=== PATIENT | female | born 1965 | race African-American/Black ===

== ENCOUNTER 2016-08-28 09:51 | Day surgery (SDC) | payer OTHER ==
[~2016-08-28 09:51] MED LIST: Buffered Lidocaine 0.9% SYRIN* 5 ML/SYR SYRINGE INTRADERM ONE
[2016-08-28] MEDS ORDERED: Clindamycin 900 MG IVPREMIX(* 900 MG/50 ML SDV IV ONE (10:14)
[2016-08-28] MEDS ORDERED: Buffered Lidocaine 0.9% SYRIN* 5 ML/SYR SYRINGE ONE (10:14)
[2016-08-28] MEDS ORDERED: fentaNYL* 50 MCG/ML 2 ML VIAL (100 MCG VIAL) ONE (11:16)
[2016-08-28] MEDS ORDERED: Midazolam* 1 MG/ML 2 ML VIAL (2 MG) ONE ×2 (11:16→12:04)
[2016-08-28] MEDS ORDERED: Lidocaine 1% INJ* 10 MG/ML 30 ML SDV ONE (11:41)
[2016-08-28] MEDS ORDERED: Bupivacaine 0.25% SDV* 30 ML ONE (11:41)
[2016-08-28] MEDS ORDERED: Dexamethasone IV* 4 MG/ML 5 ML VIAL (20 MG) ONE (11:41)
[2016-08-28] MEDS ORDERED: Propofol* 10 MG/ML 20 ML BTL IV PUSH ONE ×2 (11:42→12:26)
[2016-08-28 13:47] VITALS: BP 146/94
--- NOTE | 2016-08-29 06:40 | RAD ---
INDICATION: Correction of hallux valgus right foot. COMPARISON: Comparison is made with a prior chest study of the right foot from August 08, 2015. TECHNIQUE: 5.1 seconds of intermittent fluoroscopic guidance were provided and 2 spot films of the right foot were obtained in the operating room. FINDINGS: The films demonstrate a surgical defect at the level of the interphalangeal joint of the great toe. There are 2 K wires which project over the proximal and distal phalanges. IMPRESSION: INTRAOPERATIVE CONTROL FILMS. CPT II Codes: 6045F
--- NOTE | 2016-08-29 18:38 | OP ---
DATE OF OPERATION: 08/28/16 [facility] DATE OF : 65 SURGEON: Jesus Coulter DPM ANESTHESIOLOGIST: Randal Valentin MD ANESTHESIA: MAC local. PRE-OP DIAGNOSIS: Right hallux valgus. POST-OP DIAGNOSIS: Right hallux valgus. OPERATIVE PROCEDURE: Right hallux valgus repair. ESTIMATED BLOOD LOSS: Less than 10 cc. IV FLUIDS: LR 1000 cc. DRAINS: None. SPECIMEN: Distal portion of the proximal phalanx of the right hallux. DESCRIPTION OF PROCEDURE: The patient was taken to the operating room where she was placed in the supine position. Time-out was called and OR team agreed. The right big toe was then blocked with 8 cc of 1% lidocaine plain in a ring block fashion. The right foot was exsanguinated with an Esmarch bandage and the cuff was then inflated to 250 mmHg. Attention was then paid to the right big toe and made a lateral incision over the right big toe. It was followed by sharp and blunt dissection from the epidermis, dermis, subcutaneous, and down to fascia and to the capsule. I incised the capsule and dissected off the periosteum from the proximal phalanx of the hallux. Noteworthy was an old fracture that appeared to be healing at the posterolateral aspect of the proximal phalanx. It was at this time I decided that a compression screw was appropriate for the procedure. I then proceeded to remove a wedge of bone, removing the articular cartilage of the proximal phalanx as well as the articular cartilage from the distal phalanx of the hallux. This procedure was undertaken due to the fractured part of the bone. It was best to just fuse the middle, the proximal, and the distal phalanx at this time, removing a wedge of bone to take the hallux out of valgus. After removing the wedge of bone, I then approximated the 2 pieces of bone and then under C-arm guidance, I retrograded K-wire, two pieces of 0.062 inch K-wire to fixate. The K- wires were placed percutaneously. Once it was determined that I was able to get apposition of the bone fragments, I then proceeded to irrigate the wound, close the wound in layered anatomical fashion. I injected the site with 5 cc of 0.25 % Marcaine plain and 8 mg of dexamethasone phosphate, put into a posterior splint. The patient's cuff was then deflated. The patient tolerated the procedure well and discharged in stable condition. [id number]/[facility] #: [id number] MTDOlman
== END 2016-08-28 14:44 | disposition home or self-care (01) ==
LOC: OR 09:51
PROVIDERS: ATTEND Podiatrist
DX: M20.11 Hallux valgus (acquired), right foot (principal); F17.210 Nicotine dependence, cigarettes, uncomplicated; J44.9 Chronic obstructive pulmonary disease, unspecified; E03.9 Hypothyroidism, unspecified; I74.8 Embolism and thrombosis of other arteries; Z79.01 Long term (current) use of anticoagulants
CPT/HCPCS: 76000; C1776; J2001; J2250; J2704; J3010

== ENCOUNTER → 2016-12-29 08:21 | Emergency (ER) | payer OTHER ==
[2016-12-29 09:12] LABS: Hematocrit 43 % (35-47); Hemoglobin 14.6 g/dl (12.0-16.0); Mean Corpuscular HGB Conc 34 g/dl (31-36); Mean Corpuscular Hemoglobin 32 pg (27-31); Mean Corpuscular Volume 94 fL (80-97); Mean Platelet Volume 7 um3 (7.4-10.4); Red Cell Distribution Width 14 % (10.5-15); White Blood Count 7.9 10^3/ul (3.5-10.8)
[2016-12-29 09:29] LABS: Albumin 4.3 g/dL (3.2-5.2); BUN/Creatinine Ratio 17.6 (8-20); EGFR African American 117.3 (>60); EGFR Non-African American 91.2 (>60); Globulin 3.2 g/dL (2-4); Potassium 3.7 mmol/L (3.5-5.0); Total Bilirubin 0.5 mg/dL (0.2-1.0); Total Protein 7.5 g/dL (6.4-8.9)
--- NOTE | 2016-12-29 09:46 | RAD ---
INDICATION: Hematoma/swelling on the chin. No reported injury. COMPARISON: No relevant prior exams available on the [facility] PACS for comparison. TECHNIQUE: Multidetector CT base of the skull through mandible without contrast. Multiplanar reformation. REPORT: Subcutaneous edema at the chin. Midline to RIGHT para midline 1.0 cm diameter soft tissue density nodule within the subcutaneous tissue plane approximating the muscular fascia at the deep margin which may represent a hematoma, complex cyst, or solid lesion. Negative for subcutaneous emphysema or soft tissue plane foreign bodies. Artifact from dental amalgam. Short segment medially depressed RIGHT lamina papyracea at the medial margin of the RIGHT orbit without discrete conspicuous fracture likely represents sequela of remote injury. Negative for associated medial herniation of the medial rectus muscle. The orbital and maxillary sinus margins, zygomatic arches, lamina papyracea, base of the maxilla, pterygoid plates, and nasal bones are without evidence for acute fracture. The senile morphology mandible is intact. Normal temporal mandibular joint alignment. No lymphadenopathy evident within the [id number]. IMPRESSION: 1. Subcutaneous edema at the chin. Midline to RIGHT para midline 1.0 cm diameter soft tissue density nodule within the subcutaneous tissue plane approximating the muscular fascia at the deep margin which may represent a hematoma, complex cyst, or solid lesion. Negative for subcutaneous emphysema or soft tissue plane foreign bodies. 2. No acute fracture evident.
[2016-12-29 10:32] VITALS: BP 119/81
--- NOTE | 2016-12-30 08:35 | ED ---
Asad Albert Angela, scribed for Vj Alexandra MD on 12/29/16 at 0850 . Skin Complaint - HPI Summary HPI Summary: This pt is a 51 y/o female presenting to [facility] c/o a large ecchymosis on her chin today. Pt states she woke up with this bruise on her chin this morning. Pt denies trauma or fall. She notes she has history of blood clots and is concerned this may be one. Pt is on anticoagulants. PMHx includes left subclavian artery thrombus. - History of Current Complaint Chief Complaint: EDFacialInjury Time Seen by Provider: 12/29/16 08:40 Stated Complaint: NECK/CHIN SWELLING Hx Obtained From: Patient Onset/Duration: Started Hours Ago, Still Present Timing: Constant, Lasting Hours Pain Intensity: 8 Pain Scale Used: 0-10 Numeric Skin Location: Discrete, Other: - chin - Additional Pertinent History Primary Care Physician: BAKARI - Allergy/Home Medications Allergies/Adverse Reactions: Allergies Allergy/AdvReac Type Severity Reaction Status Date / Time Penicillins [PCN] Allergy Intermediate Swelling Verified 02/26/16 14:04 PMH/Surg Hx/FS Hx/Imm Hx Endocrine/Hematology History: Reports: Hx Thyroid Disease - hypothyroidism, no meds currently, Hx Anemia - hx of, no meds Denies: Hx Diabetes Cardiovascular History: Reports: Other Cardiovascular Problems/Disorders - Left subclavian artery thrombus Denies: Hx Congestive Heart Failure, Hx Hypertension, Hx Pacemaker/ICD Respiratory History: Reports: Hx Asthma - prn inhaler, Hx Chronic Bronchitis, Hx Chronic Obstructive Pulmonary Disease (COPD), Other Respiratory Problems/ Disorders - COPD, pt unsure which [facility] doctor follows her GI History: Reports: Hx Gastroesophageal Reflux Disease - no meds currently Denies: Hx Ulcer, Other GI Disorders History: Denies: Hx Renal Disease Musculoskeletal History: Reports: Hx Back Problems - neck/back/hips, Other Musculoskeletal History - neck/shoulder pain, evaluated in pain clinic feb 2016 , says no tx Sensory History: Reports: Hx Contacts or Glasses - glasses Denies: Hx Glaucoma, Hx Hearing Aid Opthamlomology History: Reports: Hx Contacts or Glasses - glasses Denies: Hx Glaucoma Neurological History: Reports: Hx Migraine - reports weekly, no meds Denies: Other Neuro Impairments/Disorders Psychiatric History: Reports: Hx Anxiety - not on meds currently, Hx Depression - not on meds currently, Hx Post Traumatic Stress Disorder Denies: Hx Panic Disorder - Cancer History Hx Chemotherapy: No Hx Radiation Therapy: No - Surgical History Surgery Procedure, Year, and Place: x3 - [facility]. UTERINE ABLATION - [facility]. hysterectomy - [facility]. screws placed in bilateral feet. right breast lumpectomy 2006 - Hx Anesthesia Reactions: No Infectious Disease History: No Infectious Disease History: Denies: Hx Hepatitis, Hx Human Immunodeficiency Virus (HIV), History Other Infectious Disease, Traveled Outside the [place] in Last 30 Days - Family History Known Family History: Positive: Other - cancer - Social History Alcohol Use: Weekly Alcohol Amount: reports one glass wine weekly Substance Use Type: Reports: Cocaine, Heroin, Marijuana, Prescribed Substance Use Comment - Amount & Last Used: hx of abuse - reports last used 7 years ago Hx Tobacco Use: Yes Smoking Status (MU): Current Every Day Smoker Type: Cigarettes Amount Used/How Often: 1 1/2 PPD for 35 years Length of Time of Smoking/Using Tobacco: 48 YRS Have You Smoked in the Last Year: Yes Review of Systems Negative: Fever, Chills Eyes: Negative ENT: Negative Cardiovascular: Negative Respiratory: Negative Gastrointestinal: Negative Positive: Bruising - on chin All Other Systems Reviewed And Are Negative: Yes Physical Exam - Summary Physical Exam Summary: VITAL SIGNS: Reviewed. GENERAL: Patient is a well-developed and nourished female who is lying comfortable in the stretcher. Patient is not in any acute respiratory distress. HEAD AND FACE: No signs of trauma. No ecchymosis, hematomas or skull depressions. No sinus tenderness. EYES: PERRLA, EOMI x 2, No injected conjunctiva, no nystagmus. EARS: Hearing grossly intact. Ear canals and tympanic membranes are within normal limits. MOUTH: Oropharynx within normal limits. NECK: Supple, trachea is midline, no adenopathy, no JVD, no carotid bruit, no c- spine tenderness, neck with full ROM. CHEST: Symmetric, no tenderness at palpation LUNGS: Clear to auscultation bilaterally. No wheezing or crackles. CVS: Regular rate and rhythm, S1 and S2 present, no murmurs or gallops appreciated. ABDOMEN: Soft, non-tender. No signs of distention. No rebound no guarding, and no masses palpated. Bowel sounds are normal. EXTREMITIES: FROM in all major joints, no edema, no cyanosis or clubbing. NEURO: Alert and oriented x 3. No acute neurological deficits. Speech is normal and follows commands. SKIN: Dry and warm. Large hematoma on chin. Triage Information Reviewed: Yes Vital Signs On Initial Exam: Initial Vitals Temp Pulse Resp BP Pulse Ox 98 F 83 18 130/89 99 12/29/16 08:23 12/29/16 08:23 12/29/16 08:23 12/29/16 08:23 12/29/16 08:23 Vital Signs Reviewed: Yes Diagnostics - Vital Signs Vital Signs Temp Pulse Resp BP Pulse Ox 12/29/16 08:23 98 F 83 18 130/89 99 - Laboratory Result Diagrams: 12/29/16 09:00 12/29/16 09:00 Lab Statement: Any lab studies that have been ordered have been reviewed, and results considered in the medical decision making process. - CT Maxillofacial CT CT Interpretation: Positive (See Comments) - IMPRESSION: 1. Subcutaneous edema at the chin. Midline to RIGHT para midline 1.0 cm diameter soft tissue density nodule within the subcutaneous tissue plane approximating the muscular fascia at the deep margin which may represent a hematoma, complex cyst, or solid lesion. Negative for subcutaneous emphysema or soft tissue plane foreign bodies. 2. No acute fracture evident. ED physician has reviewed this radiology report and agrees. CT Interpretation Completed By: Radiologist Course/Dx - Course Assessment/Plan: This pt is a 51 y/o female presenting to [facility] c/o a large ecchymosis on her chin today. Pt states she woke up with this bruise on her chin this morning. Pt denies trauma or fall. She notes she has history of blood clots and is concerned this may be one. Pt is on anticoagulants. PMHx includes left subclavian artery thrombus. Test results without any significant abnormalities. Facial CT only shows hematoma. I discussed findings and test results with the pt and the need to follow up with her PCP. Pt is hemodynamically stable, alert and oriented x3. - Diagnoses Provider Diagnoses: Facial contusion Discharge - Discharge Plan Condition: Stable Disposition: HOME Patient Education Materials: Facial Contusion (ED) Referrals: Philipp Bowers MD [Primary Care Provider] - Additional Instructions: Please follow up with your primary care provider. RETURN TO THE ED FOR ANY WORSENING SYMPTOMS. The documentation as recorded by the scribe, Kamara,Sylvia accurately reflects the service I personally performed and the decisions made by me, Vj Alexandra MD.
== END | disposition home or self-care (01) ==
LOC: ED 08:21
DX: S00.83XA Contusion of other part of head, initial encounter (principal); Z86.718 Personal history of other venous thrombosis and embolism; F17.210 Nicotine dependence, cigarettes, uncomplicated; X58.XXXA Exposure to other specified factors, initial encounter; Y92.9 Unspecified place or not applicable; Z88.0 Allergy status to penicillin; J45.909 Unspecified asthma, uncomplicated; J44.9 Chronic obstructive pulmonary disease, unspecified
CPT/HCPCS: 36415; 70486; 80053; 85025; 85610; 85730; 99282

== ENCOUNTER 2016-12-30 09:02 | Emergency (ER) | payer OTHER ==
[2016-12-30 09:27] VITALS: BP 130/102
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
[2016-12-30] MEDS ORDERED: Acetaminop/Codeine 30 MG TAB* 1 TAB (300 MG/30 MG) PO ONE (10:30)
== END 2016-12-30 10:45 | disposition home or self-care (01) ==
LOC: UCEAST 09:02
DX: S00.83XA Contusion of other part of head, initial encounter (principal); V47.1XXA Car passenger injured in collision with fixed or stationary object in nontraffic accident, initial encounter; Y92.9 Unspecified place or not applicable; Y99.9 Unspecified external cause status; Z72.89 Other problems related to lifestyle; F14.11 Cocaine abuse, in remission; F11.11 Opioid abuse, in remission; F12.11 Cannabis abuse, in remission; Z72.0 Tobacco use
CPT/HCPCS: 99212; A9270-GY; G0463

== ENCOUNTER 2016-12-31 18:04 | Emergency (ER) | payer OTHER ==
[2016-12-31] MEDS ORDERED: Metoclopramide IV* 5 MG/ML 2 ML VIAL IV ONE (18:51)
[2016-12-31] MEDS ORDERED: Ketorolac INJ* 30 MG/ML 1 ML VIAL IV ONE (18:51)
[2016-12-31] MEDS ORDERED: diPHENhydraMINE PO* 50 MG PO ONE (18:51)
--- NOTE | 2016-12-31 19:49 | RAD ---
INDICATION: Migraine and sore throat x3 days COMPARISON: CT maxillofacial bones dated December 29, 2016 TECHNIQUE: Contiguous axial sections of the brain were obtained from the skull base to the vertex without contrast. FINDINGS: The ventricles, cisterns and sulci are within normal limits. The rodriguez-white matter differentiation is adequately maintained and there is no sulcal effacement. No significant focal abnormality or mass effect is present. There is no evidence for intracranial hemorrhage. No significant focal osseous abnormality is present. There is mild mucosal thickening of the bilateral ethmoid air cells. The remaining visualized paranasal sinuses are adequately aerated. The mastoid air cells are well-aerated. IMPRESSION: Mild paranasal sinus mucosal disease in this otherwise normal brain CT.
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
[2016-12-31 22:07] VITALS: BP 136/87
== END 2016-12-31 22:06 | disposition home or self-care (01) ==
LOC: ED 18:04
DX: J32.9 Chronic sinusitis, unspecified (principal); R51 Headache; F17.210 Nicotine dependence, cigarettes, uncomplicated
CPT/HCPCS: 70450; 96374; 96375; 99282; A9270-GY; J1885; J2765

== ENCOUNTER 2017-02-16 13:02 | Emergency (ER) | payer OTHER ==
[2017-02-16] MEDS ORDERED: NS 0.9% 1000 ML* 2,000 ML IV ONE (13:47)
[2017-02-16] MEDS ORDERED: Morphine INJ* 4 MG/ML 1 ML CARPUJECT IV ONE (13:47)
[2017-02-16] MEDS ORDERED: Ondansetron INJ* 2 MG/ML VIAL IV ONE (13:47)
[2017-02-16 14:05] LABS: ABS Basophils 0.1 10^3/ul (0-0.2); ABS Eosinophils 0.2 10^3/ul (0-0.6); ABS Lymphocytes 2.8 10^3/ul (1.0-4.8); ABS Monocytes 0.5 10^3/ul (0-0.8); ABS Neutrophils 2.9 10^3/ul (1.5-7.7); ABS Nucleated RBC 0 10^3/ul; Eosinophil % 2.7 % (0-6); Hematocrit 42 % (35-47); Hemoglobin 14.3 g/dl (12.0-16.0); Lymphocyte % 43.7 % (25-47); Mean Corpuscular HGB Conc 34 g/dl (31-36); Mean Corpuscular Hemoglobin 32 pg (27-31); Mean Corpuscular Volume 94 fL (80-97); Mean Platelet Volume 7 um3 (7.4-10.4); Nucleated Red Blood Cells % 0.1; Platelet Count 343 10^3/ul (150-450); Red Cell Distribution Width 14 % (10.5-15); White Blood Count 6.4 10^3/ul (3.5-10.8)
[2017-02-16 14:16] LABS: INR 0.81 (0.77-1.02)
[2017-02-16] MEDS ORDERED: Iohexol 350* (CONTRAST) 500 ML MDV IV ONE (15:29)
--- NOTE | 2017-02-16 15:59 | RAD ---
INDICATION: Chest pain. Short of breath. Evaluate for pulmonary embolus. COMPARISON: CTA chest September 01, 2014; CTA chest/abdomen/pelvis April 20, 2013 TECHNIQUE: Axial source images were obtained from the thoracic inlet to the hemidiaphragms following administration of [address] angiographic technique was utilized. Coronal and sagittal reconstructed images were acquired. CHEST FINDINGS: Neck/thyroid: The visualized neck to include the thyroid appear normal. Chest wall: There are no acute abnormalities of the bony thorax or chest wall. There is no supraclavicular, infraclavicular, or axillary lymphadenopathy. Lungs : There are no pulmonary parenchymal masses or infiltrates. There is minor gravity dependent atelectasis in the lung bases The pulmonary interstitium appears normal. There are no endobronchial lesions. Cardiomediastinal structures: There is no CT evidence of acute pulmonary embolic disease. The heart is normal in size. There is no pericardial effusion. There is no evidence of aortic aneurysm or dissection. There is no mediastinal or hilar adenopathy. The esophagus appears normal. Pleura : There are no pleural-based masses or effusions. Other: Limited views the upper abdomen demonstrate hepatic lesions with one dominant lesion in the dome of the right hepatic lobe demonstrating imaging characteristics suggestive of a hemangioma. This is been document preserved. There are additional smaller low-density lesions which are likely cysts. IMPRESSION: NO CT EVIDENCE OF ACUTE PULMONARY EMBOLIC DISEASE
[2017-02-16 16:10] LABS: Urine Appearance Clear; Urine Blood 1+ (Negative); Urine Color Straw; Urine Ketones Negative (Negative); Urine Protein Negative (Negative); Urine Specific Gravity 1.014 (1.010-1.030); Urine Urobilinogen Negative (Negative)
[2017-02-16 16:45] VITALS: BP 134/83
--- NOTE | 2017-02-18 12:41 | PN ---
Progress Note - Progress Note Date of Service: 02/16/17 Note: Urine culture grew E. Coli Patient not placed on medication prior to discharge Patient denies any symptoms Will await sensitivities and place on antibiotic at that time Nothing further at this time. Joan Grissom PA-C
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
--- NOTE | 2017-02-19 09:30 | PN ---
Progress Note - Progress Note Date of Service: 02/16/17 Note: Urine culture grew E. Coli Patient not placed on antibiotics prior to discharge. Sensitive to Macrobid Patient called at 9:30a to make aware of scrip to pharmacy. Continued to call patient but call would not go through. Script sent Requested charge nurse to send letter to patient to make aware. Nothing further at this time. Joan Grissom PA-C
== END 2017-02-16 17:11 | disposition home or self-care (01) ==
LOC: ED 13:02
DX: K52.9 Noninfective gastroenteritis and colitis, unspecified (principal); Z91.14 Patient's other noncompliance with medication regimen; R11.2 Nausea with vomiting, unspecified; R42 Dizziness and giddiness; R19.7 Diarrhea, unspecified; R51 Headache; R06.00 Dyspnea, unspecified; F17.210 Nicotine dependence, cigarettes, uncomplicated
CPT/HCPCS: 36415; 71275; 80053; 81003; 81015; 83605; 83690; 85025; 85610; 85730; 86140; 86850; 86900; 86901; 87077; 87086; 87186; 96361; 96375; 99283; J2270; J2405; Q9967

== ENCOUNTER 2017-03-26 09:05 | Emergency (ER) | payer OTHER ==
[2017-03-26] MEDS ORDERED: Albuterol/Ipratropium NEB.SOL* Albuterol 2.5 MG/Ipratropium 0.5 MG 3 ML INH ONE (09:28)
--- NOTE | 2017-03-26 09:29 | ED ---
Shortness of Breath - HPI Summary HPI Summary: Pt here w/ cough and congestion x 1.5 weeks. She was bringing up phlegm successfully until past few days - just seems to be small chunks now and getting stuck in her throat, giving her a sensation of inability to breath well. She has been using her albuterol inhaler 2 puffs at a time multiple times a day w/o relief. She admits she has COPD and continues to smoke 1 1/2 PPD ( possibly more). Her home temp has been in the high 70's and she just recently was able to convince her partner to turn it to low 70's which has helped a little. Her cough is worse at night and when she lies down but still has cough sitting up (not as bad in this position). Denies hemoptysis, fever, chills, N/V/ D although admits to 1 x vomiting this morning while gagging w/ coughing. States she tried not to come here but got scared when she "couldn't breath" this morning. Med hx pertinent for clot on SCV - takes xarelto at present. No known cardiac issues other than intermittent HTN which she does not treat. Also reports she had surgery on her foot Wednesday - no issues to report. - History of Current Complaint Chief Complaint: EDShortnessOfBreath Time Seen by Provider: 03/26/17 09:13 Hx Obtained From: Patient, Family/Embedded Processor - male partner - Allergy/Home Medications Allergies/Adverse Reactions: Allergies Allergy/AdvReac Type Severity Reaction Status Date / Time MS Penicillins [PCN] Allergy Intermediate Swelling Verified 03/26/17 09:22 Home Medications: Home Medications Omeprazole CAP* [Prilosec CAP* 20 MG] 20 mg PO DAILY 03/26/17 [History] Rivaroxaban TAB(*) [Xarelto 10 mg (*)] 10 mg PO BID 03/26/17 [History] PMH/Surg Hx/FS Hx/Imm Hx Previously Healthy: Yes Endocrine/Hematology History: Reports: Hx Thyroid Disease - hypothyroidism, no meds currently, Hx Anemia - hx of, no meds Denies: Hx Diabetes Cardiovascular History: Reports: Other Cardiovascular Problems/Disorders - 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 Denies: Hx Congestive Heart Failure, Hx Hypertension, Hx Pacemaker/ICD Respiratory History: Reports: Hx Asthma - prn inhaler, Hx Chronic Bronchitis, Hx Chronic Obstructive Pulmonary Disease (COPD) - albuterol inhaler - still smokes "alot", Other Respiratory Problems/Disorders - COPD, pt unsure which [facility] doctor follows her GI History: Reports: Hx Gastroesophageal Reflux Disease - no meds currently Denies: Hx Ulcer, Other GI Disorders History: Denies: Hx Renal Disease Musculoskeletal History: Reports: Hx Back Problems - neck/back/hips, Other Musculoskeletal History - neck/shoulder pain, evaluated in pain clinic feb 2016 , says no tx Sensory History: Reports: Hx Contacts or Glasses - glasses Denies: Hx Glaucoma, Hx Hearing Aid Opthamlomology History: Reports: Hx Contacts or Glasses - glasses Denies: Hx Glaucoma Neurological History: Reports: Hx Migraine - reports weekly, no meds Denies: Other Neuro Impairments/Disorders Psychiatric History: Reports: Hx Anxiety - not on meds currently, Hx Depression - not on meds currently, Hx Post Traumatic Stress Disorder Denies: Hx Panic Disorder - Cancer History Hx Chemotherapy: No Hx Radiation Therapy: No - Surgical History Surgery Procedure, Year, and Place: x3 - [facility]ATION - [facility]. hysterectomy - [facility]. screws placed in bilateral feet. right breast lumpectomy 2006 - [facility]. Bilateral foot surgeries Hx Anesthesia Reactions: No Infectious Disease History: No Infectious Disease History: Denies: Hx Hepatitis, Hx Human Immunodeficiency Virus (HIV), History Other Infectious Disease, Traveled Outside the [place] in Last 30 Days - Family History Known Family History: Positive: Other - cancer - Social History Lives: With Family Alcohol Use: Weekly Alcohol Amount: reports one glass wine weekly Hx Substance Use: Yes Substance Use Type: Reports: Cocaine, Heroin, Marijuana, Prescribed Substance Use Comment - Amount & Last Used: hx of abuse - reports last used 7 years ago Hx Tobacco Use: Yes Smoking Status (MU): Current Every Day Smoker Type: Cigarettes Amount Used/How Often: 1 1/2 PPD for 35 years Length of Time of Smoking/Using Tobacco: 48 YRS Have You Smoked in the Last Year: Yes Review of Systems Constitutional: Negative Negative: Fever, Chills, Fatigue Eyes: Negative Positive: Sore Throat - PND, Nasal Discharge Cardiovascular: Negative Negative: Chest Pain Positive: Shortness Of Breath, Cough Gastrointestinal: Negative Negative: Abdominal Pain, Vomiting, Diarrhea, Nausea Positive: no symptoms reported Musculoskeletal: Negative Skin: Negative Neurological: Negative Negative: Headache Positive: Anxious - concerned when she gets bout where she can't breath well All Other Systems Reviewed And Are Negative: Yes Physical Exam Triage Information Reviewed: Yes Vital Signs On Initial Exam: Initial Vitals Temp Pulse Resp BP Pulse Ox 97.0 F 101 30 109/78 100 03/26/17 09:06 03/26/17 09:06 03/26/17 09:06 03/26/17 09:06 03/26/17 09:06 Vital Signs Reviewed: Yes Appearance: Positive: Well-Appearing, No Pain Distress, Well-Nourished Skin: Positive: Warm, Skin Color Reflects Adequate Perfusion, Dry Head/Face: Positive: Normal Head/Face Inspection Eyes: Positive: Normal, EOMI, Conjunctiva Clear. Negative: Conjunctiva Inflammed, Discharge ENT: Positive: Hearing grossly normal, Nasal congestion, Nasal drainage, TMs normal. Negative: Pharyngeal erythema - cobblestoning w/ PND Neck: Positive: Supple, Nontender, No Lymphadenopathy Respiratory/Lung Sounds: Positive: Breath Sounds Present. Negative: Rales, Rhonchi, Stridor, Tracheal Deviation, Wheezes, Unable to speak in full sentences , Fatigue Cardiovascular: Positive: Normal, RRR, Pulses are Symmetrical in both Upper and Lower Extremities, S1, S2. Negative: Murmur, Rub, Leg Edema Left, Leg Edema Right Abdomen Description: Positive: Nontender, No Organomegaly, Soft Bowel Sounds: Positive: Present Musculoskeletal: Positive: Normal, Strength/ROM Intact Neurological: Positive: Normal, Sensory/Motor Intact, Alert, Oriented to Person Place, Time, CN Intact II-III Psychiatric: Positive: Anxious - calm and cooperative until she starts coughing and gets anxious with phlegm in her throat Diagnostics - Vital Signs Vital Signs Temp Pulse Resp BP Pulse Ox 03/26/17 09:06 97.0 F 101 30 109/78 100 - Laboratory Lab Statement: Any lab studies that have been ordered have been reviewed, and results considered in the medical decision making process. 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 Your liquid nebulizer medication will be sent to the pharmacy. You are also being started on an antibiotic. Complete the entire course. Follow- up with your PCP in 3 days for re-evaluation of your condition. Call today to schedule a follow-up appointment. If you develop worsening of symptoms, return to the ED. Perform nasal wash/netti pot 2 x day with 8 ounces of warm water + 1/4 teaspoon of salt or saline nasal spray as needed to prevent post nasal drip which is making your cough worse. Phlegm is dripping from your nose into your chest. Perform throat gargles with warm salt water as needed Drink 60+ ounces of water daily Sleep 8+ hours per night Avoid Dairy and sugar Drink hot herbal/decaf tea with lemon & honey Drink chicken broth (preferably organic, free range chicken) Use a humidifier in your house, but especially near bed at night. You may also keep home temperature at 68F or less. Try a facial steam with or without eucalyptus essential oil or Federico's vapor rub for decongestion. Avoid smoke, candles, perfumes/colonge, air fresheners, scented lotions, etc Consider taking Vitamin D3 5,000iu and Vitamin C 1,000mg every day during illness If you are started on an antibiotics, start taking probiotics in between and after completion of antibiotics (ie. Yogurt and/or capsules of L. acidophilus, L. bifidus, L. casei, etc - make sure to get these from the refrigerated food section as they are live and active cultures)
--- NOTE | 2017-03-26 10:21 | RAD ---
HISTORY: Cough, shortness of breath, COPD COMPARISONS: CT of the chest dated February 16, 2017 VIEWS: 4: Frontal dual-energy and lateral views of the chest. FINDINGS: CARDIOMEDIASTINAL SILHOUETTE: The cardiomediastinal silhouette is normal. LUKE: The luke are normal. PLEURA: The costophrenic angles are sharp. No pleural abnormalities are noted. LUNG PARENCHYMA: The lungs are clear. ABDOMEN: The upper abdomen is clear. There is no subphrenic gas. BONES AND SOFT TISSUES: No bone or soft tissue abnormalities are noted. OTHER: None. IMPRESSION: NO ACTIVE CARDIOPULMONARY DISEASE.
[2017-03-26 11:30] VITALS: BP 118/86
== END 2017-03-26 11:29 | disposition home or self-care (01) ==
LOC: ED 09:05
DX: R05 Cough (principal); J44.9 Chronic obstructive pulmonary disease, unspecified; I10 Essential (primary) hypertension; F17.210 Nicotine dependence, cigarettes, uncomplicated; Z86.718 Personal history of other venous thrombosis and embolism; Z79.01 Long term (current) use of anticoagulants; Z88.0 Allergy status to penicillin
CPT/HCPCS: 71046; 94640; 99282; A9270-GY

== ENCOUNTER 2017-06-15 10:33 | Emergency (ER) | payer OTHER ==
--- NOTE | 2017-06-15 12:40 | RAD ---
INDICATION: Right foot pain. Prior surgery COMPARISON: August 08, 2015 TECHNIQUE: AP, lateral, and oblique views were obtained. FINDINGS: There is presumed interval surgery about the interphalangeal joint of the great toe with resection of the distal aspect of the proximal phalanx. Suggest correlation with the surgical history. The fracture about the proximal phalanx has healed. There is osteoporosis but the first MTP joint. There is fusion about the first tarsometatarsal articulation. There is no evidence of hardware failure. No acute osseous findings are seen.. IMPRESSION: POSTOPERATIVE CHANGES ABOUT THE GREAT TOE DESCRIBED.
[2017-06-15] MEDS ORDERED: Acetaminophen TAB* 325 MG PO ONE (12:57)
--- NOTE | 2017-06-15 12:57 | ED ---
Lower Extremity - HPI Summary HPI Summary: tv on toe - on anticoag - History of Current Complaint Chief Complaint: EDExtremityLower Stated Complaint: RT FOOT INJURY Time Seen by Provider: 06/15/17 12:48 Hx Obtained From: Patient Pain Intensity: 10 - Allergies/Home Medications Allergies/Adverse Reactions: Allergies Allergy/AdvReac Type Severity Reaction Status Date / Time Penicillins Allergy Swelling Verified 06/15/17 10:54 PMH/Surg Hx/FS Hx/Imm Hx Endocrine/Hematology History: Reports: Hx Thyroid Disease - hypothyroidism, no meds currently, Hx Anemia - hx of, no meds Denies: Hx Diabetes Cardiovascular History: Reports: Other Cardiovascular Problems/Disorders - 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 Denies: Hx Congestive Heart Failure, Hx Hypertension, Hx Pacemaker/ICD Respiratory History: Reports: Hx Asthma - prn inhaler, Hx Chronic Bronchitis, Hx Chronic Obstructive Pulmonary Disease (COPD) - albuterol inhaler - still smokes "alot", Other Respiratory Problems/Disorders - COPD, pt unsure which [facility] doctor follows her GI History: Reports: Hx Gastroesophageal Reflux Disease - no meds currently Denies: Hx Ulcer, Other GI Disorders History: Denies: Hx Renal Disease Musculoskeletal History: Reports: Hx Back Problems - neck/back/hips, Other Musculoskeletal History - neck/shoulder pain, evaluated in pain clinic feb 2016 , says no tx Sensory History: Reports: Hx Contacts or Glasses - glasses Denies: Hx Glaucoma, Hx Hearing Aid Opthamlomology History: Reports: Hx Contacts or Glasses - glasses Denies: Hx Glaucoma Neurological History: Reports: Hx Migraine - reports weekly, no meds Denies: Other Neuro Impairments/Disorders Psychiatric History: Reports: Hx Anxiety - not on meds currently, Hx Depression - not on meds currently, Hx Post Traumatic Stress Disorder Denies: Hx Panic Disorder - Cancer History Hx Chemotherapy: No Hx Radiation Therapy: No - Surgical History Surgery Procedure, Year, and Place: x3 - [facility] - [facility]. hysterectomy - [facility]. screws placed in bilateral feet. right breast lumpectomy 2006 - . Bilateral foot surgeries Hx Anesthesia Reactions: No Infectious Disease History: No Infectious Disease History: Denies: Hx Hepatitis, Hx Human Immunodeficiency Virus (HIV), History Other Infectious Disease, Traveled Outside the [place] in Last 30 Days - Family History Known Family History: Positive: Other - cancer - Social History Alcohol Use: Weekly Alcohol Amount: reports one glass wine weekly Hx Substance Use: Yes Substance Use Type: Reports: Cocaine, Heroin, Marijuana, Prescribed Substance Use Comment - Amount & Last Used: hx of abuse - reports last used 7 years ago Hx Tobacco Use: Yes Smoking Status (MU): Current Every Day Smoker Type: Cigarettes Amount Used/How Often: 1 1/2 PPD for 35 years Length of Time of Smoking/Using Tobacco: 48 YRS Have You Smoked in the Last Year: Yes Physical Exam Vital Signs On Initial Exam: Initial Vitals Temp Pulse Resp BP Pulse Ox 97.9 F 78 16 139/86 100 06/15/17 10:54 06/15/17 10:54 06/15/17 10:54 06/15/17 10:54 06/15/17 10:54 Diagnostics - Vital Signs Vital Signs Temp Pulse Resp BP Pulse Ox 06/15/17 10:54 97.9 F 78 16 139/86 100 - Laboratory Lab Statement: Any lab studies that have been ordered have been reviewed, and results considered in the medical decision making process. Discharge - Sign-Out/Discharge Documenting (check all that apply): Discharge/Admit/Transfer - Discharge Plan Condition: Stable Disposition: HOME Prescriptions: DOXYcycline CAP(*) [DOXYcycline 100MG CAP(*)] 100 mg PO BID #20 cap Patient Education Materials: Crush Injury (ED) Referrals: Jesus Coulter DPM [Doctor of Podiatric Medicine] - Additional Instructions: Rest, ice, elevate Use crutches to ambulate to avoid weightbearing here You may take extra strength tylenol every 6 hours as needed for pain Follow up with brush maker machine tomorrow. Call today to schedule an appointment. *If in the meantime ear pain worsens or he developed numbness tingling or weakness in this toe, return to the emergency department. - Billing Disposition and Condition Condition: STABLE Disposition: HOME
[2017-06-15] MEDS ORDERED: Acetaminophen TAB* 325 MG ONE (12:59)
[2017-06-15 13:42] VITALS: BP 168/96
== END 2017-06-15 13:42 | disposition home or self-care (01) ==
LOC: ED 10:33
DX: S97.111A Crushing injury of right great toe, initial encounter (principal); W20.8XXA Other cause of strike by thrown, projected or falling object, initial encounter; Y92.9 Unspecified place or not applicable; F17.210 Nicotine dependence, cigarettes, uncomplicated
CPT/HCPCS: 99281; A9270-GY

== ENCOUNTER 2017-12-03 06:47 | Day surgery (SDC) | payer OTHER ==
--- NOTE | 2017-11-30 07:19 | HP ---
AMENDED REPORT NOW INCLUDES DESIGNATED COSIGNER PREOPERATIVE HISTORY AND PHYSICAL: DATE OF ADMISSION/SURGERY: Tentatively scheduled for 12/03/17 - OR EAST DATE OF OFFICE VISIT/ENCOUNTER: 11/25/17 ATTENDING SURGEON: Kiley Rucker MD * (DICTATED BY JESSE LLANOS) PRIMARY CARE PHYSICIAN: Dr. Bowers. PROCEDURE: Open reduction internal fixation, left wrist. CHIEF COMPLAINT: Left wrist pain after fall. HISTORY OF PRESENT ILLNESS: This is a 52-year-old female, who sustained an injury to her left wrist on 11/25/17 when she fell at home landing on an outstretched left hand. She was seen at [facility] and had an x-ray , which showed a comminuted distal radius fracture, extraarticular. She states that her fingers feel numb since the injury. There was no other injury. She did not injure her neck or other arm. 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 She also has hypothyroidism, hypertension, COPD, asthma, anxiety, and depression. She has been prescribed several medications; however, she has not had any of her medications updated recently, so she is not on any medications right now. Typically, she is on Xarelto and levothyroxine and medications for anxiety/ depression. We will have her receive clearance from her primary care physician prior to proceeding with surgery. The patient also has a history of drug use; she reports that she has not used in 7 years. PAST MEDICAL HISTORY: 1. Chronic back pain. 2. COPD. 3. Headaches. 4. History of drug abuse. The patient reports that she has not used drugs in 7 years. 5. Depression/anxiety. 6. History of PE in 2017. 7. GERD. 8. Hypothyroidism. PAST SURGICAL HISTORY: 1. Bilateral foot surgery. 2. x3. 3. Right breast lumpectomy. 4. Hysterectomy. CURRENT MEDICATIONS: None. ALLERGIES: PENICILLIN causes hives. FAMILY MEDICAL HISTORY: Cancer. SOCIAL HISTORY: The patient is not working. She is on disability. She is a longtime smoker since the age of 12. She is currently smoking 2 packs per day. She denies recreational drug use. She drinks alcohol on occasion. REVIEW OF SYSTEMS: Negative for general, cephalic, respiratory, GI, , other musculoskeletal, integumentary, endocrine, neurologic, and hematologic symptoms. Infectious disease is negative for MRSA, hepatitis C, HIV. PHYSICAL EXAMINATION GENERAL: Well-developed, well-nourished, 52-year-old female, in no acute distress. VITAL SIGNS: Height 5 feet 6 inches, weight 130 pounds. Pulse rate 72 HEENT: Normocephalic, atraumatic. Pupils are equal, round, and reactive to light and accommodation. Extraocular movements are intact. Throat is clear. NECK: Supple. No palpable lymph nodes. PULMONARY: Lungs are clear to auscultation bilaterally. No wheezes, rales, or rhonchi. CARDIOVASCULAR: Regular rate and rhythm. S1, S2. No murmurs, rubs, or gallops. No edema. ABDOMEN: Positive bowel sounds, soft, nontender. NEUROLOGICAL: Alert and oriented x3. Cranial nerves II through XII are intact. Sensation is intact to light touch. MUSCULOSKELETAL: On exam of her left wrist, her arm is maintained in a sugar- tong splint. She has mild swelling visible in her fingers, but has good motion in her fingers and sensation is intact to light touch. Capillary refill is brisk. IMAGING STUDIES: X-rays of the left wrist showed a comminuted fracture of the distal radial metaphysis with the fracture of the ulnar styloid process. IMPRESSION: Left wrist fracture. PLAN: The patient is scheduled to undergo an open reduction internal fixation of left wrist with Dr. Rucker on 12/03/17. She will return to the office 10 days postop for followup and suture removal. A prescription for tramadol was e- scribed to the patient's pharmacy for pain management. She may need a refill of this the day of surgery. We will obtain clearance from her primary care physician prior to proceeding with surgery. JESSE LLANOS [id number]/[facility] #: [id number] DAVIS
[~2017-12-03 06:47] MED LIST changes: +Dexamethasone TAB* 4 MG ONE; +Dexamethasone TAB* 4 MG PO ONE; +DiMENhydriNATE IV* 50 MG/ML VIAL IV PUSH PRN; +Famotidine IV* 10 MG/ML 2 ML (20 mg) IV ONE; +Famotidine IV* 10 MG/ML 2 ML (20 mg) ONE; +Morphine VIAL* 4 MG/ML VIAL (1 ml vial) IV PRN; +Naloxone* 0.4 MG/ML 1 ML VIAL IV PRN; +Ondansetron ODT TAB* 4 MG ONE; +Ondansetron TAB* 4 MG PO ONE; +PROCHLORPERAZINE INJ 5 MG/ML 2 ML VIAL IV PRN; +Scopolamine 1.5 mg* PATCH TRANSDERM PRN; +oxyCODONE/Acetamin 5/325 MG* TAB PO PRN
[2017-12-03] MEDS ORDERED: Clindamycin 900 MG/D5W BAG(*) 900 MG/50 ML BAG IVPB ONE (07:13)
[2017-12-03] MEDS ORDERED: fentaNYL* 50 MCG/ML 2 ML VIAL (100 MCG VIAL) ONE ×2 (07:59→10:40)
[2017-12-03] MEDS ORDERED: KETAMINE HCL* 50 MG/ML 10 ML VIAL ONE (07:59)
[2017-12-03] MEDS ORDERED: Midazolam* 1 MG/ML 5 ML VIAL (5 MG) ONE (08:00)
[2017-12-03] MEDS ORDERED: Bupivacaine 0.25% SDV* 30 ML ONE (08:09)
[2017-12-03] MEDS ORDERED: Lidocaine 2% PF * 5 ML VIAL ONE (09:25)
[2017-12-03] MEDS ORDERED: Phenylephrine INJ* 10 MG/ML 1 ML VIAL (10 MG) ONE (09:25)
[2017-12-03] MEDS ORDERED: EPHEDrine (Pressors)* 50 MG/ML VIAL ONE (09:25)
[2017-12-03] MEDS ORDERED: Ketorolac INJ* 30 MG/ML 1 ML VIAL ONE (09:25)
[2017-12-03] MEDS ORDERED: Propofol* 10 MG/ML 20 ML BTL IV PUSH ONE (09:25)
[2017-12-03] MEDS ORDERED: Morphine INJ* 10 MG/ML 1 ML CARPUJECT ONE (09:39)
[2017-12-03] MEDS ORDERED: HYDROcodone/ACETAMIN 5-325 MG* 1 TAB ONE (10:12)
[2017-12-03] MEDS: fentaNYL* 50 MCG/ML 2 ML VIAL (100 MCG VIAL) IV PRN ×4 (10:42→11:55)
[2017-12-03] MEDS ORDERED: hydrALAZINE IV* 20 MG/ML VIAL ONE (11:15)
[2017-12-03 12:47] VITALS: BP 157/97
--- NOTE | 2017-12-04 05:56 | OP ---
DATE OF OPERATION: 12/03/17 [facility] DATE OF : 65 SURGEON: Kiley Rucker MD. CATTLE MANAGER: JESSE Dick. ANESTHESIA: General. PRE-OP DIAGNOSIS: Distal radius fracture on the left. POST-OP DIAGNOSIS: Distal radius fracture on the left. OPERATIVE PROCEDURE: Open reduction and internal fixation of left distal radius fracture. ESTIMATED BLOOD LOSS: Zero. TOURNIQUET TIME: About 40 minutes. INDICATIONS FOR PROCEDURE: Natalie is a 52-year-old female who fell and injured her left wrist. X-rays shows a comminuted displaced fracture of the distal radius, extraarticular. She presents for ORIF. DESCRIPTION OF PROCEDURE: The patient was brought to the operating room and was given a general anesthetic and a tourniquet was placed on her left upper arm. The skin of her left upper extremity was prepped and draped in the usual sterile fashion. The upper extremity was exsanguinated and the tourniquet elevated to 250 mmHg. A longitudinal incision was made over the FCR tendon. We dissected sharply through the superficial and deep portion of the FCR tendon sheath. The FPL muscle and tendon were retracted ulnarly and then the pronator quadratus was incised and subperiosteally dissected off of the distal radius. The fracture fragments were reduced and then secured with a [employer] VA locking distal radius plate with 4 proximal and 4 distal screws. The position of the hardware and fracture fragments were checked on the C-arm in the AP and lateral views and found to be satisfactory. The wound was irrigated. The pronator quadratus was repaired over the plate. The FCR tendon sheath was repaired with 2 -0 Vicryl suture and the skin edges reapproximated with 4-0 nylon suture. The wound was dressed with Xeroform, 4x4, Webril, and a volar splint. The patient tolerated the procedure well and was brought to the recovery room in good condition. [id number]/[facility] #: [id number] [facility]IDE HOSPITALOlman
[2017-12-06] MEDS ORDERED: Scopolamine PATCH Remove* 1 NOTE MISC PATCH OFF ONE (05:50)
== END 2017-12-03 12:26 | disposition home or self-care (01) ==
LOC: OREAST 06:47
PROVIDERS: ATTEND Orthopaedic Surgery
DX: S52.552A Other extraarticular fracture of lower end of left radius, initial encounter for closed fracture (principal); R51 Headache; K21.9 Gastro-esophageal reflux disease without esophagitis; E03.9 Hypothyroidism, unspecified; M25.532 Pain in left wrist; F17.210 Nicotine dependence, cigarettes, uncomplicated; Z88.0 Allergy status to penicillin; W18.39XA Other fall on same level, initial encounter; Y92.009 Unspecified place in unspecified non-institutional (private) residence as the place of occurrence of the external cause
CPT/HCPCS: 76000; A9270-GY; C1713; C1776; J0360; J1885; J2250; J2270; J2704; J3010; J8540

== ENCOUNTER 2018-11-16 21:25 | Inpatient (IN) | payer OTHER ==
[2018-11-16 22:39] LABS: ABS Basophils 0.1 10^3/ul (0-0.2); ABS Eosinophils 0.1 10^3/ul (0-0.6); ABS Lymphocytes 2.3 10^3/ul (1.0-4.8); ABS Monocytes 0.4 10^3/ul (0-0.8); ABS Neutrophils 6.3 10^3/ul (1.5-7.7); Eosinophil % 0.9 %; Hematocrit 49 % (35-47); Hemoglobin 16.2 g/dL (12.0-16.0); Lymphocyte % 25.1 %; Mean Corpuscular HGB Conc 33 g/dL (31-36); Mean Corpuscular Hemoglobin 32 pg (27-31); Mean Corpuscular Volume 95 fL (80-97); Mean Platelet Volume 7.1 fL (7.4-10.4); Nucleated Red Blood Cells % 0.1; Platelet Count 334 10^3/uL (150-450); Red Blood Count 5.14 10^6 /uL (3.70-4.87); Red Cell Distribution Width 14 % (10-15); White Blood Count 9.2 10^3/uL (3.5-10.8)
[2018-11-16 22:51] LABS: ALT 20 U/L (7-52); AST 26 U/L (13-39); Albumin 4.5 g/dL (3.2-5.2); Albumin/Globulin Ratio 1.6 (1-3); Alkaline Phosphatase 75 U/L (34-104); Anion Gap 8 mmol/L (2-11); BUN/Creatinine Ratio 12.6 (8-20); Blood Urea Nitrogen 11 mg/dL (6-24); CO2 Carbon Dioxide 26 mmol/L (22-32); Calcium 9.9 mg/dL (8.6-10.3); Chloride 110 mmol/L (101-111); EGFR African American 82.4 (>60); EGFR Non-African American 68.1 (>60); Globulin 2.9 g/dL (2-4); Glucose 85 mg/dL (70-100); Potassium 3.8 mmol/L (3.5-5.0); Sodium 144 mmol/L (135-145); Total Protein 7.4 g/dL (6.4-8.9)
[2018-11-16 23:12] LABS: Acetaminophen < 15 mcg/mL; Alcohol 152 mg/dL (<10); Salicylate < 2.50 mg/dL (<30)
[2018-11-16 23:28] LABS: TSH (Thyroid Stimulating Horm) 0.52 mcIU/mL (0.34-5.60)
--- NOTE | 2018-11-16 23:46 | ED ---
Psychiatric Complaint - HPI Summary HPI Summary: This patient is a 53 year old F presenting to [facility] with a chief complaint of suicidal thoughts. Pt did not want to come in. She reports she was tired of taking medication for mental health issues, because she continues to remain depressed. Pt is crying, angry, and frustrated at repeating her story. Pt reports smoking crack. - History Of Current Complaint Chief Complaint: EDSuicidal Time Seen by Provider: 11/16/18 22:11 Hx Obtained From: Patient Onset/Duration: Still Present Timing: Constant Character: Depressed, Angry, Frustrated Aggravating Factor(s): Medication Non-compliance, Drug Use Alleviating Factor(s): Nothing Associated Signs And Symptoms: Positive: Hostile Related History: Positive For: Prior Psychiatric Issues Has Suicidal: Reports: Thoughts, Demonstrates Gesture Ingestion History: Type/Name Of Drug - Crack - Allergies/Home Medications Allergies/Adverse Reactions: Allergies Allergy/AdvReac Type Severity Reaction Status Date / Time Penicillins Allergy Swelling Verified 12/03/17 07:17 Home Medications: Home Medications NK [No Home Medications Reported] 11/16/18 [History Confirmed 11/16/18] PMH/Surg Hx/FS Hx/Imm Hx Endocrine/Hematology History: Reports: Hx Anticoagulant Therapy, Hx Thyroid Disease - hypothyroidism, no meds currently, Hx Anemia - hx of, no meds Denies: Hx Diabetes Cardiovascular History: Reports: Other Cardiovascular Problems/Disorders - 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 Denies: Hx Congestive Heart Failure, Hx Hypertension, Hx Pacemaker/ICD Respiratory History: Reports: Hx Asthma - prn inhaler, Hx Chronic Bronchitis, Hx Chronic Obstructive Pulmonary Disease (COPD) - albuterol inhaler - still smokes "alot", Other Respiratory Problems/Disorders - COPD, pt unsure which [facility] doctor follows her GI History: Reports: Hx Gastroesophageal Reflux Disease - no meds currently Denies: Hx Ulcer, Other GI Disorders History: Denies: Hx Renal Disease Musculoskeletal History: Reports: Hx Back Problems - neck/back/hips, Other Musculoskeletal History - neck/shoulder pain, evaluated in pain clinic feb 2016 , says no tx Sensory History: Reports: Hx Contacts or Glasses - glasses Denies: Hx Glaucoma, Hx Hearing Aid Opthamlomology History: Reports: Hx Contacts or Glasses - glasses Denies: Hx Glaucoma Neurological History: Reports: Hx Migraine - reports weekly, no meds Denies: Other Neuro Impairments/Disorders Psychiatric History: Reports: Hx Anxiety - not on meds currently, Hx Depression - not on meds currently, Hx Post Traumatic Stress Disorder Denies: Hx Panic Disorder - Cancer History Hx Chemotherapy: No Hx Radiation Therapy: No - Surgical History Surgery Procedure, Year, and Place: x3 - [facility]. UTERINE ABLATION - [facility]. hysterectomy - [facility]. screws placed in bilateral feet. right breast lumpectomy 2006 - . Bilateral foot surgeries Hx Anesthesia Reactions: No Infectious Disease History: No Infectious Disease History: Denies: Hx Hepatitis, Hx Human Immunodeficiency Virus (HIV), History Other Infectious Disease, Traveled Outside the [place] in Last 30 Days - Family History Known Family History: Positive: Other - cancer - Social History Alcohol Use: Daily Alcohol Amount: reports drinking "beers" during the week Hx Substance Use: Yes Substance Use Type: Reports: Cocaine, Heroin, Marijuana, Prescribed Substance Use Comment - Amount & Last Used: hx of abuse - reports last used 2 days ago. THC approx 1 week ago Hx Tobacco Use: Yes Smoking Status (MU): Current Every Day Smoker Type: Cigarettes Amount Used/How Often: 1 1/2 PPD for 35 years Length of Time of Smoking/Using Tobacco: 48 YRS Have You Smoked in the Last Year: Yes - Additional Comments History Additional Comments: Home Medications Medication Instructions Recorded Confirmed Type NK [No Home Medications Reported] 11/16/18 11/16/18 History Review of Systems Negative: Fever Positive: Depressed, Other - SI All Other Systems Reviewed And Are Negative: Yes Physical Exam - Summary Physical Exam Summary: General: Thin Female. No acute distress. HEENT: Normocephalic, Atraumatic. Eyes: Conjuctiva normal, PERRL. Ears: TMs within normal limits. Nares: (-) discharge, (-) erythema. Oropharynx: Clear, mucous membranes moist, (-) exudates. Neck: Soft, FROM, (-) lymphadenopathy, (-) thyromegaly, (-) JVD. Cardiovascular: Normal sinus rhythm, (-) murmur. Lungs: Clear to auscultation bilaterally (-) wheezes, (-) rales, (-) rhonchi. Abdomen: Soft, non-tender, non-distended, (-) organomegaly, normal bowel sounds. Back: (-) CVA tenderness Extremities: No edema. Skin: Warm, dry, (-) rash. Neuro: Alert and oriented x3, no focal deficits. Psychiatric: Mood normal, affect agitated and tearful Triage Information Reviewed: Yes Vital Signs On Initial Exam: Initial Vitals Temp Pulse Resp BP Pulse Ox 98.1 F 103 18 164/103 98 11/16/18 21:33 11/16/18 21:33 11/16/18 21:33 11/16/18 21:33 11/16/18 21:33 Vital Signs Reviewed: Yes Procedures - Sedation Patient Received Moderate/Deep Sedation with Procedure: No Diagnostics - Vital Signs Vital Signs Temp Pulse Resp BP Pulse Ox 11/16/18 21:33 98.1 F 103 18 164/103 98 - Laboratory Lab Results: Lab Results 11/16/18 11/16/18 11/16/18 Range/Units 22:25 22:25 22:25 WBC 9.2 (3.5-10.8) 10^3/uL RBC 5.14 H (3.70-4.87) 10^6 /uL Hgb 16.2 H (12.0-16.0) g/dL Hct 49 H (35-47) % MCV 95 (80-97) fL MCH 32 H (27-31) pg MCHC 33 (31-36) g/dL RDW 14 (10-15) % Plt Count 334 (150-450) 10^3/uL MPV 7.1 L (7.4-10.4) fL Neut % (Auto) 68.4 % Lymph % (Auto) 25.1 % Garrard % (Auto) 4.9 % Eos % (Auto) 0.9 % Baso % (Auto) 0.7 % Absolute Neuts (auto) 6.3 (1.5-7.7) 10^3/ul Absolute Lymphs (auto) 2.3 (1.0-4.8) 10^3/ul Absolute Monos (auto) 0.4 (0-0.8) 10^3/ul Absolute Eos (auto) 0.1 (0-0.6) 10^3/ul Absolute Basos (auto) 0.1 (0-0.2) 10^3/ul Absolute Nucleated RBC 0.0 10^3/ul Nucleated RBC % 0.1 Sodium 144 (135-145) mmol/L Potassium 3.8 (3.5-5.0) mmol/L Chloride 110 (101-111) mmol/L Carbon Dioxide 26 (22-32) mmol/L Anion Gap 8 (2-11) mmol/L BUN 11 (6-24) mg/dL Creatinine 0.87 (0.51-0.95) mg/dL Est GFR ( Amer) 82.4 (>60) Est GFR (Non-Af Amer) 68.1 (>60) BUN/Creatinine Ratio 12.6 (8-20) Glucose 85 (70-100) mg/dL Lactic Acid 2.1 H* (0.5-2.0) mmol/L Calcium 9.9 (8.6-10.3) mg/dL Total Bilirubin 0.30 (0.2-1.0) mg/dL AST 26 (13-39) U/L ALT 20 (7-52) U/L Alkaline Phosphatase 75 (34-104) U/L Total Protein 7.4 (6.4-8.9) g/dL Albumin 4.5 (3.2-5.2) g/dL Globulin 2.9 (2-4) g/dL Albumin/Globulin Ratio 1.6 (1-3) TSH 0.52 (0.34-5.60) mcIU/mL Salicylates < 2.50 (<30) mg/dL Acetaminophen < 15 mcg/mL Serum Alcohol 152 H (<10) mg/dL Result Diagrams: 11/16/18 22:25 11/16/18 22:25 Lab Statement: Any lab studies that have been ordered have been reviewed, and results considered in the medical decision making process. - EKG 2233 Cardiac Rate: NL EKG Rhythm: Sinus Rhythm Summary of EKG Findings: EKG at 2233 reveals normal sinus rhythm with rate of 98 BPM, no acute changes, no ischemic changes. This EKG was reviewed and interpreted by Dr. Bear. Course/Dx - Course Course Of Treatment: This patient is a 53 year old F presenting to [facility] with a chief complaint of suicidal thoughts. Pt did not want to come in. She reports she was tired of taking medication for mental health issues, because she continues to remain depressed. Pt is crying, angry, and frustrated at repeating her story. Pt reports smoking crack. Pt is a thin female, with agitated and tearful affect. Blood work obtained. Lactic Acid is 2.1, RBC is 5.14, Hct is 49 , MCH is 32, MPV is 7.1. UA obtained. Urine Cocaine Screen is presumptive positive. U cannabinoids screen is presumptive positive. EKG at 2233 reveals normal sinus rhythm with rate of 98 BPM, no acute changes, no ischemic changes. This EKG was reviewed and interpreted by Dr. Bear. In the ED course the patient was given Zofran. Mental Health electrical maintenance supervisor would like pt to be admitted. Pt will be admitted. The patient is agreeable with this plan. - Differential Dx/Clinical Impression Provider Diagnosis: Suicidal ideation Discharge ED - Sign-Out/Discharge Documenting (check all that apply): Patient Departure - Admit - Discharge Plan Condition: Stable Disposition: PSYCHIATRIC FACILITY-[facility] [place] - Billing Disposition and Condition Condition: STABLE Disposition: Psychiatric Facility [facility] [place] - Attestation Statements Document Initiated by Moniqueibe: Yes Documenting Scribe: Miriam King Provider For Whom Coy is Documenting (Include Credential): Rachel Bear MD Scribe Attestation: Miriam Albert scribed for Rachel Bear MD on 11/17/18 at 0603. Scribe Documentation Reviewed: Yes Provider Attestation: The documentation as recorded by the Miriam doan accurately reflects the service I personally performed and the decisions made by Rachel downing MD Status of Scribe Document: Viewed
[2018-11-17] MEDS: Ondansetron ODT TAB* 4 MG SL PRN ×2 (02:22→18:52)
[2018-11-17 03:36] LABS: Urine Appearance Cloudy; Urine Bacteria Absent (Absent); Urine Bilirubin Negative (Negative); Urine Blood 1+ (Negative); Urine Color Yellow; Urine Glucose Negative (Negative); Urine Granular Casts Present (Absent); Urine Ketones Trace (Negative); Urine Nitrite Negative (Negative); Urine Protein 2+(100 mg/dL) (Negative); Urine Red Blood Cell 2+(6-10/hpf) (Absent); Urine Specific Gravity 1.018 (1.010-1.030); Urine Squamous Epithelial Cell Present (Absent); Urine Urobilinogen Negative (Negative); Urine White Blood Cell 2+(11-20/hpf) (Absent)
[2018-11-17 04:07] LABS: Urine Benzodiazepine Screen None Detected (None Detect); Urine Opiates Screen None Detected (None Detect)
[2018-11-17] MEDS ORDERED: LORazepam TAB(*) 1 MG ONE (06:09)
[2018-11-17] MEDS ORDERED: Al Hydrox/Mg Hydrox/Simet LIQ* 30 ML UDC PO PRN (07:02)
[2018-11-17] MEDS: LORazepam PO 0-6 for WAM protocol PO SCH (09:44)
[2018-11-17] MEDS: Vitamin THERAPEUTIC TAB PO SCH (09:44)
[2018-11-17] MEDS: Nicotine PATCH 21 MG/24 HR* PATCH TRANSDERM SCH (09:44)
[2018-11-17] MEDS ORDERED: Influenza VAC *QUAD* 2019-20* 0.5 ML SYRINGE IM ONE (15:00)
[2018-11-17] MEDS ORDERED: Pneumococcal *Vac Polyvalent 0.5 ML VIAL IM ONE (15:00)
[2018-11-17] MEDS: Nicotine* 2MG (FRUIT FLAVOR) GUM PO PRN (18:51)
[2018-11-17] MEDS: Acetaminophen TAB* 325 MG PO PRN (18:52)
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
[2018-11-17] MEDS: Nicotine Patch Removal NOTE PATCH OFF SCH (23:05)
[2018-11-18] MEDS: Acetaminophen TAB* 325 MG PO PRN (02:10)
[2018-11-18] MEDS ORDERED: Diclofenac Sodium EC TAB* 25 MG PO ONE (06:00)
[2018-11-18] MEDS: LORazepam PO 0-6 for WAM protocol PO SCH ×3 (06:20→20:58)
[2018-11-18] MEDS: Nicotine* 2MG (FRUIT FLAVOR) GUM PO PRN (07:00)
[2018-11-18] MEDS: Nicotine PATCH 21 MG/24 HR* PATCH TRANSDERM SCH (07:00)
[2018-11-18 08:49] LABS: HDL Cholesterol 69.4 mg/dL
[2018-11-18] MEDS: Vitamin THERAPEUTIC TAB PO SCH (13:42)
[2018-11-18] MEDS: DULoxetine DR CAP* 60 MG CAP.DR PO SCH (14:04)
[2018-11-18] MEDS: Buprenorp/Nalox 4-1 MG FILM SL FILM SCH ×2 (14:05→20:59)
[2018-11-18] MEDS: Ibuprofen TAB* 600 MG PO PRN (14:05)
[2018-11-18] MEDS ORDERED: Fluconazole 150 MG TAB PO ONE (14:18)
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
[2018-11-18 17:14] LABS: HIV 4th Generation Nonreactive (Nonreactive)
[2018-11-18] MEDS: Ondansetron ODT TAB* 4 MG SL PRN (17:22)
[2018-11-18 18:17] LABS: Hepatitis B Surface Antigen Nonreactive (Nonreactive)
[2018-11-18 18:35] LABS: Hepatitis C Antibody Negative (Negative)
[2018-11-19] MEDS: Nicotine Patch Removal NOTE PATCH OFF SCH ×2 (00:52→22:00)
[2018-11-19] MEDS: Ondansetron ODT TAB* 4 MG SL PRN ×2 (01:46→11:21)
[2018-11-19] MEDS: LORazepam PO 0-6 for WAM protocol PO SCH ×2 (01:54→22:27)
[2018-11-19] MEDS: Buprenorp/Nalox 4-1 MG FILM SL FILM SCH ×2 (08:55→22:22)
[2018-11-19] MEDS: Vitamin THERAPEUTIC TAB PO SCH (08:55)
[2018-11-19] MEDS: DULoxetine DR CAP* 60 MG CAP.DR PO SCH (08:56)
[2018-11-19] MEDS: Nicotine PATCH 21 MG/24 HR* PATCH TRANSDERM SCH (08:56)
[2018-11-19] MEDS: Ibuprofen TAB* 600 MG PO PRN (09:01)
[2018-11-19] MEDS: Acetaminophen TAB* 325 MG PO PRN (22:28)
[2018-11-20] MEDS: Ibuprofen TAB* 600 MG PO PRN ×2 (02:05→08:03)
[2018-11-20] MEDS: LORazepam PO 0-6 for WAM protocol PO SCH ×6 (02:06→23:18)
[2018-11-20] MEDS: Buprenorp/Nalox 4-1 MG FILM SL FILM SCH ×2 (07:50→23:21)
[2018-11-20] MEDS: Vitamin THERAPEUTIC TAB PO SCH (07:51)
[2018-11-20] MEDS: DULoxetine DR CAP* 60 MG CAP.DR PO SCH (08:04)
[2018-11-20] MEDS: Nicotine PATCH 21 MG/24 HR* PATCH TRANSDERM SCH (08:04)
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
[2018-11-20] MEDS: Ondansetron ODT TAB* 4 MG SL PRN (19:32)
[2018-11-20] MEDS: Gabapentin CAP(*) 300 MG PO SCH (23:19)
[2018-11-20] MEDS: Nicotine Patch Removal NOTE PATCH OFF SCH (23:22)
[2018-11-21] MEDS: Ondansetron ODT TAB* 4 MG SL PRN (05:10)
[2018-11-21] MEDS: Buprenorp/Nalox 4-1 MG FILM SL FILM SCH ×2 (05:14→07:45)
[2018-11-21] MEDS: LORazepam PO 0-6 for WAM protocol PO SCH (05:15)
[2018-11-21] MEDS: Nicotine* 2MG (FRUIT FLAVOR) GUM PO PRN (06:00)
[2018-11-21] MEDS: Nicotine PATCH 21 MG/24 HR* PATCH TRANSDERM SCH ×2 (06:00→07:47)
[2018-11-21] MEDS: DULoxetine DR CAP* 60 MG CAP.DR PO SCH (08:48)
[2018-11-21] MEDS: Gabapentin CAP(*) 300 MG PO SCH ×3 (08:49→20:01)
[2018-11-21] MEDS: Vitamin THERAPEUTIC TAB PO SCH (08:50)
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
[2018-11-21] MEDS: traMADol TAB* 50 MG PO PRN (18:06)
[2018-11-21] MEDS: GuaiFENesin DM 100 mg/10 mg in 5 ML UDC PO PRN (18:07)
[2018-11-21] MEDS: Ibuprofen TAB* 600 MG PO PRN (22:08)
[2018-11-21] MEDS: Nicotine Patch Removal NOTE PATCH OFF SCH (22:18)
[2018-11-22] MEDS: GuaiFENesin DM 100 mg/10 mg in 5 ML UDC PO PRN ×2 (00:54→20:03)
[2018-11-22] MEDS ORDERED: Albuterol HFA INHALER* 8 gm MDI INH PRN (01:00)
[2018-11-22] MEDS ORDERED: Levalbuterol 1.25MG/0.5ML NEB INH ONE (01:00)
[2018-11-22] MEDS: traMADol TAB* 50 MG PO PRN ×2 (05:10→18:03)
[2018-11-22] MEDS: Ibuprofen TAB* 600 MG PO PRN ×3 (06:15→20:03)
[2018-11-22] MEDS: DULoxetine DR CAP* 60 MG CAP.DR PO SCH (07:38)
[2018-11-22] MEDS: Vitamin THERAPEUTIC TAB PO SCH (07:38)
[2018-11-22] MEDS: Gabapentin CAP(*) 300 MG PO SCH ×3 (07:38→20:03)
[2018-11-22] MEDS: Acetaminophen TAB* 325 MG PO PRN ×2 (07:38→16:13)
[2018-11-22] MEDS: Nicotine PATCH 21 MG/24 HR* PATCH TRANSDERM SCH (07:38)
[2018-11-22] MEDS: Nicotine Patch Removal NOTE PATCH OFF SCH ×2 (15:29→20:22)
[2018-11-22] MEDS ORDERED: Levalbuterol 1.25MG/0.5ML NEB INH PRN (16:05)
[2018-11-22] MEDS: Nicotine* 2MG (FRUIT FLAVOR) GUM PO PRN (16:13)
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
[2018-11-22] MEDS ORDERED: Albuterol 2.5 MG/3 ML NEB.SOL* (0.083%) INH ONE (20:23)
[2018-11-23] MEDS: Ibuprofen TAB* 600 MG PO PRN (01:28)
[2018-11-23] MEDS: Acetaminophen TAB* 325 MG PO PRN (04:32)
[2018-11-23] MEDS: DULoxetine DR CAP* 60 MG CAP.DR PO SCH (08:20)
[2018-11-23] MEDS: Gabapentin CAP(*) 300 MG PO SCH (08:20)
[2018-11-23] MEDS: Vitamin THERAPEUTIC TAB PO SCH (08:21)
[2018-11-23] MEDS: Nicotine PATCH 21 MG/24 HR* PATCH TRANSDERM SCH (08:21)
[2018-11-23 08:39] VITALS: BP 150/86
[2018-11-23] MEDS: Nicotine* 2MG (FRUIT FLAVOR) GUM PO PRN (09:06)
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
== END 2018-11-23 11:30 | disposition home or self-care (01) | DRG 755 ==
LOC: ED 21:25 → BSU 11-17 04:46
PROVIDERS: ADMIT Psychiatry & Neurology Psychiatry; ATTEND Psychiatry & Neurology Psychiatry
DX: F43.12 Post-traumatic stress disorder, chronic (principal); R45.851 Suicidal ideations; F14.90 Cocaine use, unspecified, uncomplicated; F11.90 Opioid use, unspecified, uncomplicated; E03.9 Hypothyroidism, unspecified; J44.9 Chronic obstructive pulmonary disease, unspecified; K21.9 Gastro-esophageal reflux disease without esophagitis; G43.909 Migraine, unspecified, not intractable, without status migrainosus; F17.210 Nicotine dependence, cigarettes, uncomplicated; Z62.810 Personal history of physical and sexual abuse in childhood; F41.9 Anxiety disorder, unspecified; F32.9 Major depressive disorder, single episode, unspecified; R45.850 Homicidal ideations; Y90.6 Blood alcohol level of 120-199 mg/100 ml; M54.9 Dorsalgia, unspecified; R05 Cough; R11.2 Nausea with vomiting, unspecified; T50.7X5A Adverse effect of analeptics and opioid receptor antagonists, initial encounter; Y92.239 Unspecified place in hospital as the place of occurrence of the external cause; Z90.710 Acquired absence of both cervix and uterus; Z72.89 Other problems related to lifestyle; Z88.0 Allergy status to penicillin; Z90.722 Acquired absence of ovaries, bilateral; Z86.718 Personal history of other venous thrombosis and embolism; Z56.0 Unemployment, unspecified; Z28.21 Immunization not carried out because of patient refusal; Z91.14 Patient's other noncompliance with medication regimen
CPT/HCPCS: 36415; 71045; 80053; 80061; 80074; 80307; 80320; 80329; 81003; 81015; 83036; 83605; 84443; 85025; 87070; 87086; 87205; 87389; 90732; 93005; 94640; 99222; 99231; 99232; 99238; 99285; A9270-GY; G0480

== ENCOUNTER 2018-11-25 13:17 | Emergency (ER) | payer OTHER ==
[2018-11-25 13:37] VITALS: BP 128/89
--- NOTE | 2018-11-25 13:55 | UC ---
Respiratory Complaint HPI - HPI Summary HPI Summary: 53 yo female presents with vomiting. She has multiple complaints at this time. 1) She tells me that for the last 10 days she has not had a bowel movement and over the last 4-5 days has been vomiting anything that she eats or drinks. She is having left sided abdominal pain with this. 2) For 10 days she has had sinus pain/pressure/congestion, post nasal drip, and a productive cough with green sputum. 3) She mentions that she has a history of low back problems and "disc issues". Over the last 10 days has felt like her right leg and weaker and has less sensation than previous and less compared to her left. She notes that is since this time she feels that she is retaining urine and has to "really push" to get any out. She denies fever, chills, SOB, chest pain, diarrhea, dysuria, flank pain, saddle anesthesia, loss of bowel/bladder control, nocturia. - History of Current Complaint Chief Complaint: UCGeneralIllness Stated Complaint: VOMITING Time Seen by Provider: 11/25/18 13:55 Hx Obtained From: Patient Onset/Duration: Sudden Onset Severity Initially: Severe Severity Currently: Severe Pain Intensity: 8 Pain Scale Used: 0-10 Numeric - Allergies/Home Medications Allergies/Adverse Reactions: Allergies Allergy/AdvReac Type Severity Reaction Status Date / Time Penicillins Allergy Swelling Verified 11/25/18 13:37 PMH/Surg Hx/FS Hx/Imm Hx - Additional Past Medical History Additional PMH: COPD Back pain Thrombus Psychological History: Anxiety, Depression Other History Of: Anticoagulant Therapy - Surgical History Surgical History: Yes Surgery Procedure, Year, and Place: x3 - [facility] [place]. UTERINE ABLATION - [facility] [place]. hysterectomy - [facility] [place]. screws placed in bilateral feet. right breast lumpectomy 2006 - [facility]. Bilateral foot surgeries. left wrist - Family History Known Family History: Positive: Other - cancer - Social History Alcohol Use: Rare Alcohol Amount: reports drinking "beers" during the week Substance Use Type: Marijuana Substance Use Comment - Amount & Last Used: hx cocaine, not currently Smoking Status (MU): Heavy Every Day Tobacco Smoker Type: Cigarettes Amount Used/How Often: 1 1/2 PPD for 35 years Length of Time of Smoking/Using Tobacco: 48 YRS Have You Smoked in the Last Year: Yes When Did the Patient Quit Smoking/Using Tobacco: 1 PPD Household Exposure Type: Cigarettes - Immunization History Most Recent Influenza Vaccination: states that she has not received in the past couple of years Most Recent Tetanus Shot: 2013 Most Recent Pneumonia Vaccination: never Review of Systems All Other Systems Reviewed And Are Negative: No Constitutional: Positive: Negative Skin: Positive: Negative Eyes: Positive: Negative ENT: Positive: Nasal Discharge, Sinus Congestion, Sinus Pain/Tenderness Respiratory: Positive: Cough Cardiovascular: Positive: Negative Gastrointestinal: Positive: Abdominal Pain, Vomiting, Nausea Genitourinary: Positive: Other - Hard to urinate Motor: Positive: Negative Neurovascular: Positive: Negative Musculoskeletal: Positive: Other: - Back pain and right leg weakness Neurological: Positive: Negative Psychological: Positive: Negative Physical Exam - Summary Physical Exam Summary: GENERAL: NAD. WDWN. No pain distress. SKIN: No rashes, sores, lesions, or open wounds. NECK: Supple. Nontender. No lymphadenopathy. CHEST: Bibasilar rales. No accessory muscle use. Breathing comfortably and in no distress. CV: RRR. Pulses intact. Cap refill <2seconds ABDOMEN: LEFT abdomen moderate TTP with slight guarding. Soft. No CVA tenderness. Bowel sounds present MSK: LOWER BACK: Pain with flexion and extension of spine. Positive SLR b/l for low back pain without radiation. Strength 5/5 B/L LEs including dorsiflexion and plantar flexion. FROM B/L LEs. No edema. NEURO: Alert. Right LE decreased sensations along L4-L5 dermatome compared to left. Reflexes intact. PSYCH: Age appropriate behavior. Triage Information Reviewed: Yes Vital Signs: Initial Vital Signs Temp 98.2 F 11/25/18 13:28 Pulse 93 11/25/18 13:28 Resp 18 11/25/18 13:28 BP 128/89 11/25/18 13:28 Pulse Ox 94 11/25/18 13:28 Laboratory Tests 11/25/18 13:54 POC Urine Color Yellow POC Urine Clarity Clear POC Urine pH 5.0 POC Ur Specif [place] >= 1.030 POC Urine Protein Negative POC Ur Glucose (UA) Trace A POC Urine Ketones Trace A POC Urine Blood Negative POC Urine Nitrite Negative POC Urine Bilirubin 1+ A POC Urine Urobilinogen 1.0 POC U Leukocyte Esteras Negative Vital Signs Reviewed: Yes Respiratory Course/Dx - Course Course Of Treatment: At this time I am most concerned pt is exhibiting signs of neurogenic bowel/ bladder given her bowel and bladder changes with worsening leg numbness/ weakness. Also in the DDx is epidural abscess given her hx of IVDA, SBO, PNA, COPD exacerbation, constipation, urinary retention. I discussed this with the pt and recommended further eval in the ED and pt was agreeable to this. She does not feel safe driving herself, thus is acceptable to ambulance transfer. [facility] was called and pt left in stable condition. She was given 4mg zofran in the clinic. Report called to Abilio MOLINA in the ED. - Differential Dx/Diagnosis Provider Diagnosis: Constipation, Cough, Back pain Discharge ED - Sign-Out/Discharge Documenting (check all that apply): Patient Departure All imaging exams completed and their final reports reviewed: No Studies - Discharge Plan Condition: Stable Disposition: TRANS HIGHER LVL OF CARE FAC Referrals: No Primary Care Phys,NOPCP [Primary Care Provider] - - Billing Disposition and Condition Condition: STABLE Disposition: Trans Higher Lvl of Care Fac
[2018-11-25] MEDS ORDERED: NS 0.9% 1000 ML** 1,000 ML IV ONE (14:19)
[2018-11-25] MEDS ORDERED: Ondansetron INJ* 2 MG/ML VIAL IV ONE (14:19)
== END 2018-11-25 15:00 | disposition short-term general hospital (02) ==
LOC: UCEAST 13:17
DX: K59.00 Constipation, unspecified (principal); R05 Cough; M54.9 Dorsalgia, unspecified; J44.9 Chronic obstructive pulmonary disease, unspecified; R11.10 Vomiting, unspecified; R09.81 Nasal congestion; R09.82 Postnasal drip; Z88.0 Allergy status to penicillin; F17.210 Nicotine dependence, cigarettes, uncomplicated
CPT/HCPCS: 81003; 99213; G0463; J2405

== ENCOUNTER 2018-11-25 15:11 | Emergency (ER) | payer OTHER ==
[2018-11-25] MEDS ORDERED: NS 0.9% 1000 ML** 1,000 ML IV ONE (15:22)
[2018-11-25] MEDS ORDERED: Ondansetron INJ* 2 MG/ML VIAL IV ONE (15:22)
[2018-11-25] MEDS ORDERED: Enoxaparin(*) 60 MG/0.6 ML SYR SUBCUT ONE (15:41)
[2018-11-25 15:57] LABS: ABS Eosinophils 0.5 10^3/ul (0-0.6); ABS Lymphocytes 2.8 10^3/ul (1.0-4.8); ABS Monocytes 0.6 10^3/ul (0-0.8); ABS Neutrophils 5.7 10^3/ul (1.5-7.7); Eosinophil % 4.8 %; Hematocrit 45 % (35-47); Hemoglobin 15.6 g/dL (12.0-16.0); Lymphocyte % 28.9 %; Mean Corpuscular HGB Conc 35 g/dL (31-36); Mean Corpuscular Hemoglobin 33 pg (27-31); Mean Corpuscular Volume 93 fL (80-97); Mean Platelet Volume 7.3 fL (7.4-10.4); Nucleated Red Blood Cells % 0.1; Platelet Count 331 10^3/uL (150-450); Red Blood Count 4.79 10^6 /uL (3.70-4.87); Red Cell Distribution Width 14 % (10-15); White Blood Count 9.6 10^3/uL (3.5-10.8)
--- NOTE | 2018-11-25 16:33 | ED ---
Abdominal Pain/Female - HPI Summary HPI Summary: 53 year old female presents to the ED with a chief complaint of abdominal pain and vomiting for the last 10 days. Her pain is localized in her LLQ with a severity of 9/10 and is accompanied by flatulence, and constipation. She has difficulty urinating, and has to push very hard for anything to come out. Last night when she lied down, she coughed and produced thick green sputum that had a foul odor. She has lost a lot of weight since the start of her symptoms. Patient denies fever. She has never used opioids, but has recently smoked synthetic marijuana. PMHx of blood clot in an artery in her LUE and chronic back pain. PSHx of hysterectomy due to uncontrolled bleeding. She is not taking her prescribed blood thinner. Patient has psychiatric disorder. - History of Current Complaint Chief Complaint: EDAbdPain Stated Complaint: ABDOMINAL PAIN/VOMITING PER EMS Time Seen by Provider: 11/25/18 15:21 Hx Obtained From: Patient ?: No Onset/Duration: Lasting Days, Worse Since - 10 days ago Timing: Constant Severity Initially: Severe Severity Currently: Severe Pain Intensity: 9 Pain Scale Used: 0-10 Numeric Location: Discrete At: LLQ Aggravating Factor(s): Nothing Alleviating Factor(s): Nothing Associated Signs and Symptoms: Positive: Cough - with green sputum with foul odor, Constipation, Urinary Symptoms, Other: - weight loss, flatulence. 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 Denies: Hx Congestive Heart Failure, Hx Pacemaker/ICD Respiratory History: Reports: Hx Asthma - prn inhaler, Hx Chronic Bronchitis, Hx Chronic Obstructive Pulmonary Disease (COPD) - albuterol inhaler - still smokes "alot", Other Respiratory Problems/Disorders - COPD, 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 GI History: Reports: Hx Gastroesophageal Reflux Disease - no meds currently Denies: Hx Ulcer, Other GI Disorders History: Denies: Hx Renal Disease Musculoskeletal History: Reports: Hx Back Problems - neck/back/hips, Other Musculoskeletal History - neck/shoulder pain, evaluated in pain clinic feb 2016 , says no tx Sensory History: Reports: Hx Contacts or Glasses Denies: Hx Glaucoma, Hx Hearing Aid Opthamlomology History: Reports: Hx Contacts or Glasses Denies: Hx Glaucoma Neurological History: Reports: Hx Migraine - reports weekly, no meds Denies: Other Neuro Impairments/Disorders Psychiatric History: Reports: Hx Anxiety - not on meds currently, Hx Depression - not on meds currently, Hx Post Traumatic Stress Disorder, Hx Inpatient Treatment, Hx of Violent Episodes Against Others, Hx Substance Abuse Denies: Hx Eating Disorder, Hx Panic Disorder - Cancer History Hx Chemotherapy: No Hx Radiation Therapy: No - Surgical History Surgery Procedure, Year, and Place: x3 - [facility]. UTERINE ABLATION - [facility]. hysterectomy - [facility]. screws placed in bilateral feet. right breast lumpectomy 2006 - [facility]. Bilateral foot surgeries. left wrist Hx Anesthesia Reactions: No - Immunization History Immunizations Up to Date: Yes Infectious Disease History: No Infectious Disease History: Denies: Hx Hepatitis, Hx Human Immunodeficiency Virus (HIV), History Other Infectious Disease, Traveled Outside the [place] in Last 30 Days - Family History Known Family History: Positive: Other - cancer - Social History Alcohol Use: Rare Alcohol Amount: reports drinking "beers" during the week Hx Substance Use: Yes Substance Use Type: Reports: Marijuana Substance Use Comment - Amount & Last Used: hx cocaine, not currently Hx Tobacco Use: Yes Smoking Status (MU): Heavy Every Day Tobacco Smoker Type: Cigarettes Amount Used/How Often: 1 1/2 PPD for 35 years Length of Time of Smoking/Using Tobacco: 48 YRS Have You Smoked in the Last Year: Yes Review of Systems Negative: Fever Positive: Cough Positive: Abdominal Pain, Vomiting, Other - flatulence, constipation Positive: other - difficulty urinating All Other Systems Reviewed And Are Negative: Yes Physical Exam - Summary Physical Exam Summary: VITAL SIGNS: Reviewed. GENERAL: Patient is a well-developed and nourished female who is lying comfortable in the stretcher. Patient is not in any acute respiratory distress. HEAD AND FACE: Normocephalic and atraumatic. EYES: PERRLA, EOMI x 2, No injected conjunctiva. EARS: Hearing grossly intact. Ear canals and tympanic membranes are WNL. MOUTH: Oropharynx within normal limits. NECK: Supple, trachea is midline, no adenopathy, no JVD. CHEST: Symmetric, no tenderness at palpation. LUNGS: No wheezing. Crackles bilaterally. CVS: RRR, S1 and S2 present, no murmurs or gallops appreciated. ABDOMEN: Soft. Tender at LLQ. No signs of distention. Positive bowel sounds. No rebound, no guarding, and no masses palpated. No abdominal bruit or pulsations. EXTREMITIES: FROM in all major joints, no edema, no cyanosis or clubbing. NEURO: Alert and oriented x 3. No acute neurological deficits. Speech is normal. SKIN: Dry and warm. Triage Information Reviewed: Yes Vital Signs On Initial Exam: Initial Vitals Temp Pulse Resp BP Pulse Ox 98.3 F 86 18 136/98 96 11/25/18 15:14 11/25/18 15:14 11/25/18 15:14 11/25/18 15:14 11/25/18 15:14 Vital Signs Reviewed: Yes Procedures - Sedation Patient Received Moderate/Deep Sedation with Procedure: No Diagnostics - Vital Signs Vital Signs Temp Pulse Resp BP Pulse Ox 11/25/18 15:14 98.3 F 86 18 136/98 96 - Laboratory Lab Results: Lab Results 11/25/18 Range/Units 15:49 WBC 9.6 (3.5-10.8) 10^3/uL RBC 4.79 (3.70-4.87) 10^6 /uL Hgb 15.6 (12.0-16.0) g/dL Hct 45 (35-47) % MCV 93 (80-97) fL MCH 33 H (27-31) pg MCHC 35 (31-36) g/dL RDW 14 (10-15) % Plt Count 331 (150-450) 10^3/uL MPV 7.3 L (7.4-10.4) fL Neut % (Auto) 59.4 % Lymph % (Auto) 28.9 % [place] % (Auto) 6.5 % Eos % (Auto) 4.8 % Baso % (Auto) 0.4 % Absolute Neuts (auto) 5.7 (1.5-7.7) 10^3/ul Absolute Lymphs (auto) 2.8 (1.0-4.8) 10^3/ul Absolute Monos (auto) 0.6 (0-0.8) 10^3/ul Absolute Eos (auto) 0.5 (0-0.6) 10^3/ul Absolute Basos (auto) 0.0 (0-0.2) 10^3/ul Absolute Nucleated RBC 0.0 10^3/ul Nucleated RBC % 0.1 Result Diagrams: 11/25/18 15:49 11/25/18 15:49 Lab Statement: Any lab studies that have been ordered have been reviewed, and results considered in the medical decision making process. - Radiology ABD XR Radiology Interpretation Completed By: Radiologist Summary of Radiographic Findings: NONSPECIFIC BOWEL GAS PATTERN. LARGE AMOUNT OF STOOL WITHIN THE PROXIMAL COLON. An ED physician has reviewed this report. CXR Radiology Interpretation Completed By: Radiologist Summary of Radiographic Findings: Impression shows no active cardiopulmonary disease. An ED physician has reviewed this report. Abdominal Pain Fem Course/Dx - Course Course Of Treatment: Patient is a 53-year-old female who presents to the emergency department with a chief complaint of constipation. Declined rectal exam. Blood work without any significant abnormality. Chest x-ray impression: No active Pulmonary Disease. Abdomen x-ray impression: Nonspecific bowel gas pattern. Patch amount of stool within the proximal colon. In the ED course the patient reported that she is unable to urinate. We did a bladder scan and the patient has only 20 cc of urine. In the ED course the patient was given IV fluids, MiraLAX, lactulose, and magnesium citrate. Patient reports that she prefers to take this at home. She is feeling better. We will send a couple of prescriptions for the patient and the follow-up with the primary care physician. I discussed all the findings and test results with the patient. Patient was instructed to return to the emergency room immediately if any of the symptoms return worsens. Plan of care was discussed with the patient and understands and agrees. All questions were answered at patient satisfaction. There were no further complaints or concerns. Lung exam before discharge: CTA B/ L. Good air exchange. No wheezing or crackles heard. CVS: S1 and S2 present. No murmurs appreciated. Patient is alert and oriented x 3. Patient is hemodynamically stable. Patient will be discharged home with follow up PCP in the next 2-3 days - Diagnoses Provider Diagnoses: Constipation Discharge ED - Sign-Out/Discharge Documenting (check all that apply): Patient Departure - discharge - Discharge Plan Condition: Stable Disposition: HOME Prescriptions: Magnesium CITRATE* [Citrate of Magnesia*] 300 ml PO ONCE #1 btl Magnesium Hydroxide LIQ* [Milk of Magnesia LIQ*] 30 ml PO BID PRN #1 btl PRN Reason: Constipation Ondansetron TAB* [Zofran 4 MG Tab*] 4 mg PO Q6H PRN #10 tab PRN Reason: Nausea Polyethylene Glycol 3350* [Miralax*] 17 gm PO DAILY #12 packet Patient Education Materials: Constipation (ED) Referrals: [facility] [Outside] Additional Instructions: Follow up with your primary care provider in 2-3 days. Return to the Emergency Department if you experience new or worsened symptoms. - Attestation Statements Document Initiated by Scribe: Yes Documenting Scribe: Chalino Alicea Provider For Whom Scribe is Documenting (Include Credential): Vj Alexandra MD. Scribe Attestation: Chalino Albert, sylvieibed for Vj Alexandra MD. on 11/25/18 at 1847. Status of Scribe Document: Ready
[2018-11-25 16:42] LABS: Albumin 4.1 g/dL (3.2-5.2); Albumin/Globulin Ratio 1.2 (1-3); BUN/Creatinine Ratio 16.2 (8-20); C Reactive Protein 4.51 mg/L (<8.01); Calcium 9.7 mg/dL (8.6-10.3); EGFR African American 99.3 (>60); EGFR Non-African American 82.1 (>60); Globulin 3.3 g/dL (2-4); Magnesium 2.2 mg/dL (1.9-2.7); Potassium 4.2 mmol/L (3.5-5.0); Total Bilirubin 0.2 mg/dL (0.2-1.0); Total Protein 7.4 g/dL (6.4-8.9)
[2018-11-25] MEDS ORDERED: Polyethylene Glycol 3350* 17 GM PACKET PO PRN (16:42)
[2018-11-25] MEDS ORDERED: Magnesium CITRATE* 300 ML BTL PO ONE (16:42)
[2018-11-25] MEDS ORDERED: Polyethylene Glycol 3350* 17 GM PACKET ONE (17:01)
[2018-11-25 17:42] VITALS: BP 136/92
== END 2018-11-25 17:41 | disposition home or self-care (01) ==
LOC: ED 15:11
DX: K59.00 Constipation, unspecified (principal); D64.9 Anemia, unspecified; I10 Essential (primary) hypertension; J44.9 Chronic obstructive pulmonary disease, unspecified; K21.9 Gastro-esophageal reflux disease without esophagitis; F41.9 Anxiety disorder, unspecified; F32.9 Major depressive disorder, single episode, unspecified; F17.210 Nicotine dependence, cigarettes, uncomplicated; Z90.710 Acquired absence of both cervix and uterus; Z79.01 Long term (current) use of anticoagulants; Z88.0 Allergy status to penicillin; Z79.899 Other long term (current) drug therapy
CPT/HCPCS: 36415; 71046; 74019; 80053; 82150; 83605; 83690; 83735; 85025; 86140; 96372; 96374; 99283; A9270-GY; J1650

== ENCOUNTER 2018-12-04 18:06 | Inpatient (IN) | payer OTHER ==
--- OUTSIDE RECORDS SUMMARY | 2018-12-04 18:50 | XMS REPORT | Continuity of Care Document ---
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 Onset: 2013 artery Tobacco user Maria Dolores Flores M.D. Onset: 09/08/2013 Disorder of menstruation John Lua N.P. Onset: 09/08/2013 Sprain of shoulder rotator cuff Felisa Pena M.D. Onset: 10/29/2014 Disorder of shoulder Felisa Pena M.D. Onset: 10/29/2014 Shoulder joint unstable Lillian Lechuga MD Onset: 12/12/2014 Adhesive capsulitis of shoulder Lillian Lechuga MD Onset: 12/12/2014 Disturbance in sleep behavior Lakeisha Jewell MD Onset: 05/31/2015 Emphysema, unspecified Lakeisha Jewell MD Onset: 05/31/2015 Cervical disc disorder Lillian Lechuga MD Onset: 09/17/2015 Cervical spondylosis without myelopathy Jesse Sandoval M.D. Onset: 10/28/2015 Asthma without status asthmaticus Philipp Bowers M.D. Onset: 08/20/2016 Posttraumatic stress disorder Philipp Boewrs M.D. Onset: 08/20/2016 Social History Type Date Description Comments Sex Unknown ETOH Use Currently consumes 1 - 2 glasses wine alcohol or beer with dinner Recreational Drug Use used to use crack, pot Denies current use 10 yr of Marijuana or Cocaine Tobacco Use Start: Unknown Patient is a current 2 ppd,started age 12 smoker, smokes every day Smoking Status Reviewed: 12/01/18 Patient is a current 2 ppd,started age 12 smoker, smokes every day Exercise Type/Frequency Does not exercise Allergies, Adverse Reactions, Alerts Active Allergies Reaction Severity Comments Date Penicillins 09/08/2013 Medications Active Medications SIG Qnty Indications Ordering Provider Date [facility] Nicotine Apply one patch 21units F17.210 Loree Pierce, 12/01/2018 Transdermal System daily. Step 1 21mg/24HR Patches 24HR Dulera 2 puff twice 26.4gm J44.9 Loree Pierce, 12/01/2018 200-5mcg/Act daily Aerosol Olanzapine take one tablet F31.9 Loree Pierce, 12/01/2018 5mg Tablets daily Quetiapine Fumarate take one tablet F31.9 Loree Pierce, 12/01/2018 at bedtime 100mg Tablets History Medications No Active Unknown 12/01/2018 - Medications 12/01/2018 Xarelto take one tablet I82.502 Loree Pierce, 12/01/2018 - 20mg Tablets daily 12/01/2018 Albuterol Sulfate 2 puffs qd as Other Ordering 11/24/2018 - HFA needed Provider 12/01/2018 108(90Base) mcg/Act Aerosol Duloxetine HCL 1 by mouth 90caps Other Ordering 11/24/2018 - 60mg every day Provider 12/01/[address] Inman Gabapentin 1 by mouth 90caps Other Ordering 11/24/2018 - 300mg three times a Provider 12/01/2018 Capsules day Ibuprofen one tablet by 8tabs Other Ordering 11/24/2018 - 600mg mouth q 6 as Provider 12/01/2018 Tablets needed pain Tramadol HCL 1 tablet by 60tabs Buck Patiño MD 11/24/2018 - 50mg mouth every 12 12/01/2018 Tablets hours as needed pain Medications Administered in Office Medication SIG Qnty Indications Ordering Provider Date Depomedrol 40MG Kiley Rucker M.D. 01/12/2018 Injection Depomedrol 40MG Kiley Rucker M.D. 01/12/2018 Injection Triamcinolone (Kenalog) Lillian Lechuga MD 09/17/2015 Injection Depomedrol 80MG Felisa Pena M.D. 10/29/2014 Injection B-12 Injection Nurse Visit A 10/04/2013 Injection B-12 Injection Nurse Visit C 10/03/2013 Injection B-12 Injection Nurse Visit C 10/02/2013 Injection B-12 Injection Nurse Visit C 10/02/2013 Injection B-12 Injection Nurse Visit C 09/29/2013 Injection Immunizations CPT Code Status Date Vaccine Lot # [id number] Given 11/16/2017 Influenza Virus Vaccine, Quadrivalent, Split, Preservative Free [id number] Given 11/20/2014 Influenza Virus Vaccine, Quadrivalent, Split, [id number] Preservative Free Vital Signs Date Vital Result Comment 12/01/2018 2:06pm Height 66 inches 5'6" Weight 129.12 lb Heart Rate 76 /min BP Systolic 152 mmHg BP Diastolic 91 mmHg Body Temperature 98.8 F O2 % BldC Oximetry 94 % BMI (Body Mass Index) 20.8 kg/m2 01/12/2018 10:44am Height 66 inches 5'6" Heart Rate 72 /min BP Systolic Sitting 100 mmHg BP Diastolic Sitting 74 mmHg Body Temperature 96.7 F Results Description No Information Available Procedures Date Code Description Status 08/20/2016 077324482 Diabetic Foot Exam Completed 08/18/2016 [id number] Diabetic Foot Exam Completed 03/09/2014 [id number] Mammogram Completed Medical Devices Description No Information Available Encounters Description No Information Available Assessments Date Code Description Provider 12/01/2018 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 Pierce 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 12/01/2018 F17.210 Nicotine dependence, cigarettes, uncomplicated Loree Pierce MD 12/01/2018 J44.9 Chronic obstructive pulmonary disease, Loree Pierce MD unspecified 12/01/2018 F31.9 Bipolar disorder, unspecified Loree Pierce MD Plan of Treatment Future Appointment(s):12/09/2018 9:40 am - Buck Patiño MD at [facility] - [address] - Loree Pierce MDI82.502 Chronic embolism and thrombosis of unspecified deep veins of left lower extremityNew Medication: Xarelto 20 mg - take one tablet anzcwO55.210 Nicotine dependence, cigarettes, uncomplicatedNew Medication:[facility] Nicotine Transdermal System Step 1 21 mg/24HR - Apply one patch daily.Follow up:in 1 week or as needed.J44.9 Chronic obstructive pulmonary disease, unspecifiedNew Medication:Dulera 200-5 mcg/Act - 2 puff twice pdyubE26.9 Bipolar disorder, unspecifiedNew Medication:Olanzapine 5 mg - take one tablet dailyQuetiapine Fumarate 100 mg - take one tablet at bedtimeComments:1. Please take your medication regularly.2. Please follow up with psychiatrist. Functional Status Description No Information Available Mental Status Description No Information Available Referrals Refer to Reason for Referral Status Appt Date Created
[2018-12-04 18:58] LABS: Urine Appearance Clear; Urine Bacteria Absent (Absent); Urine Bilirubin Negative (Negative); Urine Blood 1+ (Negative); Urine Color Straw; Urine Glucose Negative (Negative); Urine Ketones Negative (Negative); Urine Nitrite Negative (Negative); Urine Protein Negative (Negative); Urine Red Blood Cell Trace(0-2/hpf) (Absent); Urine Specific Gravity 1.015 (1.010-1.030); Urine Urobilinogen Negative (Negative); Urine White Blood Cell 1+(6-10/hpf) (Absent)
--- NOTE | 2018-12-04 19:06 | ED ---
Psychiatric Complaint - HPI Summary HPI Summary: This patient is a 53 year old F presenting to [facility] with a chief complaint of "violent hallucinations" since today 12/04/18 at 1730. Hx schizophrenia, substance abuse, chronic back pain in the lower mid back. Pt reports hallucinations earlier today and possible SI. Patient intermittently agitated and tangential on interview. Hx limited by mental illness. - History Of Current Complaint Chief Complaint: EDMentalHealth Time Seen by Provider: 12/04/18 18:28 Hx Obtained From: Patient Onset/Duration: Lasting Hours, Still Present Timing: Constant Aggravating Factor(s): Nothing Alleviating Factor(s): Nothing Associated Signs And Symptoms: Positive: Hallucinating Has Suicidal: Reports: Thoughts - Allergies/Home Medications Allergies/Adverse Reactions: Allergies Allergy/AdvReac Type Severity Reaction Status Date / Time Penicillins Allergy Swelling Verified 12/04/18 18:20 PMH/Surg Hx/FS Hx/Imm Hx Endocrine/Hematology History: Reports: Hx Anticoagulant Therapy, Hx Anemia - hx of, no meds Denies: Hx Diabetes, Hx Thyroid Disease Cardiovascular History: Reports: Hx Hypertension, Other Cardiovascular Problems/ Disorders - 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 Denies: Hx Congestive Heart Failure, Hx Pacemaker/ICD Respiratory History: Reports: Hx Asthma - prn inhaler, Hx Chronic Bronchitis, Hx Chronic Obstructive Pulmonary Disease (COPD) - albuterol inhaler - still smokes "alot", Other Respiratory Problems/Disorders - COPD, pt unsure which [facility] doctor follows her GI History: Reports: Hx Gastroesophageal Reflux Disease - no meds currently Denies: Hx Ulcer, Other GI Disorders History: Denies: Hx Renal Disease Musculoskeletal History: Reports: Hx Back Problems - neck/back/hips, Other Musculoskeletal History - neck/shoulder pain, evaluated in pain clinic feb 2016 , says no tx Sensory History: Reports: Hx Contacts or Glasses Denies: Hx Glaucoma, Hx Hearing Aid Opthamlomology History: Reports: Hx Contacts or Glasses Denies: Hx Glaucoma Neurological History: Reports: Hx Migraine - reports weekly, no meds Denies: Other Neuro Impairments/Disorders Psychiatric History: Reports: Hx Anxiety - not on meds currently, Hx Depression - not on meds currently, Hx Post Traumatic Stress Disorder, Hx Inpatient Treatment, Hx of Violent Episodes Against Others, Hx Substance Abuse Denies: Hx Eating Disorder, Hx Panic Disorder - Cancer History Hx Chemotherapy: No Hx Radiation Therapy: No - Surgical History Surgery Procedure, Year, and Place: x3 - [facility]. UTERINE ABLATION - [facility]. hysterectomy - [facility]. screws placed in bilateral feet. right breast lumpectomy 2007 - [facility]. Bilateral foot surgeries. left wrist Hx Anesthesia Reactions: No Infectious Disease History: No Infectious Disease History: Denies: Hx Hepatitis, Hx Human Immunodeficiency Virus (HIV), History Other Infectious Disease, Traveled Outside the [place] in Last 30 Days - Family History Known Family History: Positive: Other - cancer - Social History Alcohol Use: Weekly Alcohol Amount: reports drinking "beers" during the week Hx Substance Use: Yes Substance Use Type: Reports: Marijuana Substance Use Comment - Amount & Last Used: hx cocaine, not currently Hx Tobacco Use: Yes Smoking Status (MU): Heavy Every Day Tobacco Smoker Type: Cigarettes Amount Used/How Often: 1 1/2 PPD for 35 years Length of Time of Smoking/Using Tobacco: 48 YRS Have You Smoked in the Last Year: Yes Review of Systems Positive: Other - chronic back pain Neurological: Other - hallucinations, possible SI, schizophrenia All Other Systems Reviewed And Are Negative: Yes Physical Exam - Summary Physical Exam Summary: Constitutional: Well-developed, Well-nourished, Alert. (-) Distressed Skin: Warm, Dry HENT: Normocephalic; Atraumatic Eyes: Conjunctiva normal Neck: Musculoskeletal ROM normal neck. (-) JVD, (-) Stridor, (-) Nuchal rigidity Cardio: Rhythm regular, rate normal, Heart sounds normal; Intact distal pulses; Radial pulses are 2+ and symmetric. (-) Murmur Pulmonary/Chest wall: Effort normal. (-) Respiratory distress, (-) Wheezes, (-) Rales Abd: Soft, (-) tenderness, (-) Distension, (-) Guarding, (-) Rebound Musculoskeletal: (-) Edema, paraspinal TL tenderness. No midline CTL tenderess. Neuro: Alert, Oriented x3 Psych: hyperverbal, tangential speech Triage Information Reviewed: Yes Vital Signs On Initial Exam: Initial Vitals Temp Pulse Resp BP Pulse Ox 98.1 F 110 18 151/114 97 12/04/18 18:16 12/04/18 18:16 12/04/18 18:16 12/04/18 18:16 12/04/18 18:16 Vital Signs Reviewed: Yes Procedures - Sedation Patient Received Moderate/Deep Sedation with Procedure: No Diagnostics - Vital Signs Vital Signs Temp Pulse Resp BP Pulse Ox 12/04/18 18:16 98.1 F 110 18 151/114 97 - Laboratory Lab Results: Lab Results 12/04/18 Range/Units 18:38 Urine Color Straw Urine Appearance Clear Urine pH 6.0 (5-9) Ur Specific [place] 1.015 (1.010-1.030) Urine Protein Negative (Negative) Urine Ketones Negative (Negative) Urine Blood 1+ A (Negative) Urine Nitrate Negative (Negative) Urine Bilirubin Negative (Negative) Urine Urobilinogen Negative (Negative) Ur Leukocyte Esterase 2+ A (Negative) Urine WBC (Auto) 1+(6-10/hpf) A (Absent) Urine RBC (Auto) Trace(0-2/hpf) (Absent) Urine Bacteria Absent (Absent) Urine Glucose Negative (Negative) Result Diagrams: 12/04/18 19:09 12/04/18 19:09 Lab Statement: Any lab studies that have been ordered have been reviewed, and results considered in the medical decision making process. Course/Dx - Course Course Of Treatment: 53 y/o F with hx schizophrenia and substance use p/w hallucinations. - patient reporting chronic back pain, no recent trauma. No midline CTL tenderness, given tylenol. - pysch to see for hallucinations. - Differential Dx/Clinical Impression Provider Diagnosis: Substance induced mood disorder Discharge ED - Sign-Out/Discharge Documenting (check all that apply): Sign-Out Patient Signing out patient TO: Rachel Bear - pending MHE - Discharge Plan Condition: Stable Referrals: No Primary Care Phys,NOPCP [Primary Care Provider] - - Billing Disposition and Condition Condition: STABLE - Attestation Statements Document Initiated by Scribe: Yes Documenting Scribe: Mihaela Carty Provider For Whom Coy is Documenting (Include Credential): Dr. Tanya Scott MD Scribe Attestation: Mihaela Albert, scribed for Dr. Tanya Scott MD on 12/04/18 at 2337. Scribe Documentation Reviewed: Yes Provider Attestation: The documentation as recorded by the scribMihaela coon accurately reflects the service I personally performed and the decisions made by me, Dr. Tanya Scott MD Status of Scribe Document: Viewed
[2018-12-04 19:17] LABS: ABS Eosinophils 0.2 10^3/ul (0-0.6); ABS Monocytes 0.5 10^3/ul (0-0.8); ABS Neutrophils 5.4 10^3/ul (1.5-7.7); Eosinophil % 2.3 %; Hematocrit 40 % (35-47); Hemoglobin 13.6 g/dL (12.0-16.0); Lymphocyte % 25.2 %; Mean Corpuscular HGB Conc 34 g/dL (31-36); Mean Corpuscular Hemoglobin 32 pg (27-31); Mean Corpuscular Volume 93 fL (80-97); Mean Platelet Volume 7.1 fL (7.4-10.4); Nucleated Red Blood Cells % 0.1; Platelet Count 365 10^3/uL (150-450); Red Blood Count 4.24 10^6 /uL (3.70-4.87); Red Cell Distribution Width 14 % (10-15); White Blood Count 8.1 10^3/uL (3.5-10.8)
[2018-12-04 19:18] LABS: Urine Benzodiazepine Screen None Detected (None Detect); Urine Opiates Screen None Detected (None Detect)
[2018-12-04 19:36] LABS: ALT 35 U/L (7-52); AST 24 U/L (13-39); Albumin 4.4 g/dL (3.2-5.2); Albumin/Globulin Ratio 1.5 (1-3); Alkaline Phosphatase 81 U/L (34-104); Anion Gap 6 mmol/L (2-11); BUN/Creatinine Ratio 20.4 (8-20); Blood Urea Nitrogen 20 mg/dL (6-24); CO2 Carbon Dioxide 27 mmol/L (22-32); Calcium 10.4 mg/dL (8.6-10.3); Chloride 106 mmol/L (101-111); EGFR African American 71.8 (>60); EGFR Non-African American 59.4 (>60); Glucose 130 mg/dL (70-100); Potassium 4.2 mmol/L (3.5-5.0); Sodium 139 mmol/L (135-145); Total Protein 7.4 g/dL (6.4-8.9)
[2018-12-04 20:07] LABS: Acetaminophen < 15 mcg/mL; Alcohol < 10 mg/dL (<10); Salicylate < 2.50 mg/dL (<30)
[2018-12-04 20:22] LABS: TSH (Thyroid Stimulating Horm) 1.07 mcIU/mL (0.34-5.60)
--- NOTE | 2018-12-04 22:04 | ED ---
Progress - Progress Note Progress Note: Pt is a signout from Dr. Scott at 2200 on 12/04/18 pending mental health transfer. - Results/Orders Results/Orders: EKG at 0352 reveals normal sinus rhythm with rate of 83 BPM, no acute changes, no ischemic changes. This EKG was reviewed and interpreted by Dr. Bear. - Consult/PCP Time Called: 20:24 Re-Evaluation - Re-Evaluation First Eval Re-Evaluation Time: 09:15 Comment: Pt will either be transferred to another psychiatric facility or will be admitted to [facility] depending on bed availability. Course/Dx - Course Course Of Treatment: Pt is a signout from Dr. Scott at 2200 on 12/04/18 pending mental health transfer. EKG at 0352 reveals normal sinus rhythm with rate of 83 BPM, no acute changes, no ischemic changes. This EKG was reviewed and interpreted by Dr. Bear. Pt will be signed out to Dr. Buck at 0700 on 12/05/18 pending transfer. - Diagnoses Provider Diagnoses: Substance induced mood disorder Discharge ED - Sign-Out/Discharge Documenting (check all that apply): Sign-Out Patient, Receiving Sign-Out Signing out patient TO: Fredis Buck Receiving patient FROM: Tanya Scott - Discharge Plan Condition: Stable Disposition: PSYCHIATRIC FACILITY-[facility] - Billing Disposition and Condition Condition: STABLE Disposition: Psychiatric Facility [facility] - Attestation Statements Document Initiated by Scribe: Yes Documenting Scribe: Melissa Mcduffie Provider For Whom Scribe is Documenting (Include Credential): Rachel Bear MD. Scribe Attestation: Melissa Albert scribed for Rachel Bear MD. on 12/06/18 at 0112. Scribe Documentation Reviewed: Yes Provider Attestation: The documentation as recorded by the sylvieibeMelissa accurately reflects the service I personally performed and the decisions made by me, Rachel Bear MD. Status of Scribe Document: Viewed
[2018-12-04] MEDS ORDERED: Acetaminophen TAB* 325 MG PO ONE (22:08)
[2018-12-05] MEDS ORDERED: Ibuprofen TAB* 400 MG PO ONE (04:19)
[2018-12-05] MEDS ORDERED: Ibuprofen TAB* 600 MG PO PRN ×2 (07:38→11:42)
[2018-12-05] MEDS ORDERED: Albuterol HFA INHALER* 8 gm MDI INH PRN ×2 (07:38→11:42)
--- NOTE | 2018-12-05 07:38 | ED ---
Progress - Progress Note Progress Note: Pt is a sign out from Dr. Bear at 0700 on 12/05/18 pending mental health transfer. Re-Evaluation - Re-Evaluation First Eval Re-Evaluation Time: 09:15 Comment: Pt will either be transferred to another psychiatric facility or will be admitted to [facility] depending on bed availability. Course/Dx - Course Course Of Treatment: This pt was signed out by Dr. Bear pending mental health transfer. Pt had a mental health evaluation and her case reviewed by Dr. Edward, psychiatrist. Due to bed availability at [facility] pt will no longer be transferred and will be admitted by Dr. Edward on a voluntary status to [facility]. - Diagnoses Provider Diagnoses: Substance induced mood disorder Discharge ED - Sign-Out/Discharge Documenting (check all that apply): Patient Departure - Admit to [facility], Receiving Sign-Out Receiving patient FROM: Rachel Bear - Discharge Plan Condition: Stable Disposition: [facility]CHIATRIC FACILITY[place] - Attestation Statements Document Initiated by Scribe: Yes Documenting Scribe: Sylvia Kamara Provider For Whom Scribe is Documenting (Include Credential): Fredis Buck MD Scribe Attestation: Sylvia Albert, scribed for Fredis Buck MD on 12/05/18 at 1511. Status of Scribe Document: Ready
[2018-12-05] MEDS ORDERED: Polyethylene Glycol 3350* 17 GM PACKET PO PRN (07:39)
[2018-12-05] MEDS ORDERED: OLANzapine TAB* 5 MG PO ONE ×3 (07:42→09:15)
--- NOTE | 2018-12-05 08:04 | PN ---
ED Psychiatric Progress Note Date of Service: 12/05/18 Subjective: This is a 53 year-old F who is pending transfer to another psychiatric facility secondary to psychosis. Pt offers no complaints at this time. Objective: Vitals: Most recent vital signs documented below. General NAD, Alert and oriented x3. Heart: rrr at 70 bpm Lungs: CTA or with rales, rhonchi, wheezing Laboratory: Current laboratory results documented below. Assessment: substance induced psychosis Plan: Pending psychiatric to transfer will follow up daily until accepted at facility condition: stable Vital Signs Temp Pulse Resp BP Pulse Ox 98.7 F 74 16 132/88 98 12/04/18 23:07 12/04/18 23:07 12/04/18 23:07 12/04/18 23:07 12/04/18 23:07 Lab Results - Entire Visit 12/04/18 12/04/18 12/04/18 19:09 19:09 18:38 WBC 8.1 RBC 4.24 Hgb 13.6 Hct 40 MCV 93 MCH 32 H MCHC 34 RDW 14 Plt Count 365 MPV 7.1 L Neut % (Auto) 66.6 Lymph % (Auto) 25.2 [place] % (Auto) 5.6 Eos % (Auto) 2.3 Baso % (Auto) 0.3 Absolute Neuts (auto) 5.4 Absolute Lymphs (auto) 2.0 Absolute Monos (auto) 0.5 Absolute Eos (auto) 0.2 Absolute Basos (auto) 0.0 Absolute Nucleated RBC 0.0 Nucleated RBC % 0.1 Sodium 139 Potassium 4.2 Chloride 106 Carbon Dioxide 27 Anion Gap 6 BUN 20 Creatinine 0.98 H Est GFR ( Amer) 71.8 Est GFR (Non-Af Amer) 59.4 BUN/Creatinine Ratio 20.4 H Glucose 130 H Calcium 10.4 H Total Bilirubin 0.30 AST 24 ALT 35 Alkaline Phosphatase 81 Total Protein 7.4 Albumin 4.4 Globulin 3.0 Albumin/Globulin Ratio 1.5 TSH 1.07 Urine Color Urine Appearance Urine pH Ur Specific [place] Urine Protein Urine Ketones Urine Blood Urine Nitrate Urine Bilirubin Urine Urobilinogen Ur Leukocyte Esterase Urine WBC (Auto) Urine RBC (Auto) Urine Bacteria Urine Glucose Salicylates < 2.50 Urine Opiates Screen None detected Acetaminophen < 15 Ur Barbiturates Screen None detected Ur Phencyclidine Scrn None detected Ur Amphetamines Screen None detected U Benzodiazepines Scrn None detected Urine Cocaine Screen Presumptive positive A U Cannabinoids Screen Presumptive positive A Serum Alcohol < 10 12/04/18 18:38 WBC RBC Hgb Hct MCV MCH MCHC RDW Plt Count MPV Neut % (Auto) Lymph % (Auto) [place] % (Auto) Eos % (Auto) Baso % (Auto) Absolute Neuts (auto) Absolute Lymphs (auto) Absolute Monos (auto) Absolute Eos (auto) Absolute Basos (auto) Absolute Nucleated RBC Nucleated RBC % Sodium Potassium Chloride Carbon Dioxide Anion Gap BUN Creatinine Est GFR ( Amer) Est GFR (Non-Af Amer) BUN/Creatinine Ratio Glucose Calcium Total Bilirubin AST ALT Alkaline Phosphatase Total Protein Albumin Globulin Albumin/Globulin Ratio TSH Urine Color Straw Urine Appearance Clear Urine pH 6.0 Ur Specific [place] 1.015 Urine Protein Negative Urine Ketones Negative Urine Blood 1+ A Urine Nitrate Negative Urine Bilirubin Negative Urine Urobilinogen Negative Ur Leukocyte Esterase 2+ A Urine WBC (Auto) 1+(6-10/hpf) A Urine RBC (Auto) Trace(0-2/hpf) Urine Bacteria Absent Urine Glucose Negative Salicylates Urine Opiates Screen Acetaminophen Ur Barbiturates Screen Ur Phencyclidine Scrn Ur Amphetamines Screen U Benzodiazepines Scrn Urine Cocaine Screen U Cannabinoids Screen Serum Alcohol
[2018-12-05] MEDS ORDERED: Magnesium Hydroxide LIQ* 30 ML UDC PO SCH (09:00)
[2018-12-05] MEDS ORDERED: QUEtiapine TAB* 100 MG PO ONE (09:00)
[2018-12-05] MEDS ORDERED: DULoxetine DR CAP* 60 MG CAP.DR PO ONE (09:00)
[2018-12-05] MEDS ORDERED: Rivaroxaban TAB(*) 20 MG TAB PO ONE (09:00)
[2018-12-05] MEDS ORDERED: Gabapentin CAP(*) 300 MG PO SCH (09:00)
[2018-12-05] MEDS ORDERED: Acetaminophen TAB* 325 MG PO PRN (11:37)
[2018-12-05] MEDS ORDERED: Al Hydrox/Mg Hydrox/Simet LIQ* 30 ML UDC PO PRN (11:37)
[2018-12-05] MEDS ORDERED: Magnesium Hydroxide LIQ* 30 ML UDC PO PRN (11:42)
[2018-12-05] MEDS ORDERED: Ondansetron TAB* 4 MG PO PRN (11:42)
[2018-12-05] MEDS ORDERED: Magnesium CITRATE* 300 ML BTL PO ONE (12:00)
[2018-12-05] MEDS ORDERED: DULoxetine DR CAP* 60 MG CAP.DR PO SCH (12:00)
[2018-12-05] MEDS: Gabapentin CAP(*) 300 MG PO SCH ×2 (16:40→20:37)
[2018-12-05] MEDS: Nicotine* 2MG (FRUIT FLAVOR) GUM PO PRN (19:41)
[2018-12-05] MEDS: guaiFENesin LIQ* 100 MG/5 ML UDC PO PRN (20:37)
[2018-12-06] MEDS: guaiFENesin LIQ* 100 MG/5 ML UDC PO PRN ×2 (04:25→11:46)
[2018-12-06] MEDS: Nicotine* 2MG (FRUIT FLAVOR) GUM PO PRN ×2 (04:26→11:47)
[2018-12-06 08:03] VITALS: BP 125/86
[2018-12-06] MEDS: Gabapentin CAP(*) 300 MG PO SCH (08:05)
[2018-12-06] MEDS ORDERED: Rivaroxaban TAB(*) 20 MG TAB PO SCH (09:00)
[2018-12-06] MEDS ORDERED: DULoxetine DR CAP* 60 MG CAP.DR PO SCH (09:00)
[2018-12-06] MEDS ORDERED: OLANzapine TAB* 5 MG PO SCH (09:00)
[2018-12-06] MEDS ORDERED: Polyethylene Glycol 3350* 17 GM PACKET PO SCH (09:00)
[2018-12-06] MEDS ORDERED: QUEtiapine TAB* 100 MG PO SCH (09:00)
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
== END 2018-12-06 12:18 | disposition home or self-care (01) | DRG 755 ==
LOC: ED 18:06 → BSU 12-05 11:37
PROVIDERS: ADMIT Psychiatry & Neurology Psychiatry; ATTEND Psychiatry & Neurology Psychiatry
DX: F43.10 Post-traumatic stress disorder, unspecified (principal); F60.2 Antisocial personality disorder; F14.90 Cocaine use, unspecified, uncomplicated; F12.90 Cannabis use, unspecified, uncomplicated; J44.9 Chronic obstructive pulmonary disease, unspecified; D50.9 Iron deficiency anemia, unspecified; K21.9 Gastro-esophageal reflux disease without esophagitis; M54.9 Dorsalgia, unspecified; M54.2 Cervicalgia; M25.559 Pain in unspecified hip; F17.210 Nicotine dependence, cigarettes, uncomplicated; Z81.3 Family history of other psychoactive substance abuse and dependence; Z88.0 Allergy status to penicillin
CPT/HCPCS: 36415; 80053; 80307; 80320; 80329; 81003; 81015; 84443; 85025; 87086; 93005; 99238; 99284; A9270-GY; G0480

== ENCOUNTER 2018-12-14 10:10 | Emergency (ER) | payer OTHER ==
[2018-12-14] MEDS ORDERED: Magnesium Hydroxide LIQ* 30 ML UDC PO ONE (10:30)
--- NOTE | 2018-12-14 10:32 | ED ---
Psychiatric Complaint - HPI Summary HPI Summary: Pt is a 53 y/o F presenting to the ED brought in on a 9.41. She used heroin, crack cocaine, and an unknown pill on 12/09/18 that caused her to have passive SI and hallucinations. She also reports cigarette use. Additionally reports several days constipation w small hard stools. She notes hx of schizophrenia and COPD. - History Of Current Complaint Chief Complaint: EDMentalHealth Time Seen by Provider: 12/14/18 10:18 Hx Obtained From: Patient Onset/Duration: Gradual Onset, Lasting Days, Still Present Timing: Days Severity Initially: Moderate Severity Currently: Mild Character: Depressed Aggravating Factor(s): Drug Use Alleviating Factor(s): Nothing Associated Signs And Symptoms: Positive: Hallucinating, Paranoid Behavior Related History: Positive For: Prior Psychiatric Issues Has Suicidal: Reports: Thoughts - Allergies/Home Medications Allergies/Adverse Reactions: Allergies Allergy/AdvReac Type Severity Reaction Status Date / Time Penicillins Allergy Swelling Verified 12/04/18 18:20 Home Medications: Home Medications Albuterol HFA INHALER* [Ventolin HFA Inhaler*] 2 puff INH Q4HR PRN 12/14/18 [ History Confirmed 12/14/18] Mometasone/Formoter 200/5 MDI* [Dulera 200/5 MDI*] 2 puff INH BID 12/14/18 [ History Confirmed 12/14/18] Nicotine PATCH 21 MG/24 HR* 21 mg TRANSDERM DAILY 12/14/18 [History Confirmed ] QUEtiapine TAB* [Seroquel 100 MG *] 100 mg PO BEDTIME 12/14/18 [History Confirmed 12/14/18] PMH/Surg Hx/FS Hx/Imm Hx Previously Healthy: Yes Endocrine/Hematology History: Reports: Hx Anticoagulant Therapy, Hx Anemia - hx of, no meds Denies: Hx Diabetes, Hx Thyroid Disease Cardiovascular History: Reports: Hx Hypertension, Other Cardiovascular Problems/ Disorders - 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 Denies: Hx Congestive Heart Failure, Hx Pacemaker/ICD Respiratory History: Reports: Hx Asthma - prn inhaler, Hx Chronic Bronchitis, Hx Chronic Obstructive Pulmonary Disease (COPD) - albuterol inhaler - still smokes "alot", Other Respiratory Problems/Disorders - COPD, pt unsure which [facility] doctor follows her GI History: Reports: Hx Gastroesophageal Reflux Disease - no meds currently Denies: Hx Ulcer, Other GI Disorders History: Denies: Hx Renal Disease Musculoskeletal History: Reports: Hx Back Problems - pt states, "the discs in my back are deteriorating", Other Musculoskeletal History - neck/shoulder pain, evaluated in pain clinic feb 2016, says no tx Sensory History: Reports: Hx Contacts or Glasses - pt states she does not have them with her at [facility] Denies: Hx Glaucoma, Hx Hearing Aid Opthamlomology History: Reports: Hx Contacts or Glasses - pt states she does not have them with her at [facility] Denies: Hx Glaucoma Neurological History: Reports: Hx Migraine - reports weekly, no meds Denies: Other Neuro Impairments/Disorders Psychiatric History: Reports: Hx Anxiety, Hx Depression, Hx Panic Disorder - as stated by pt., Hx Post Traumatic Stress Disorder, Hx Inpatient Treatment, Hx Community Mental Health Tx - as stated by pt., Hx Schizophrenia, Hx Bipolar Disorder, Hx of Violent Episodes Against Others, Hx Substance Abuse, Other Psychiatric Issues/Disorders - auditory and visual hallucinations Denies: Hx Eating Disorder - Cancer History Hx Chemotherapy: No Hx Radiation Therapy: No - Surgical History Surgery Procedure, Year, and Place: x3 - [facility] [place]. UTERINE ABLATION - [facility] [place]. hysterectomy - [facility] [place]. screws placed in bilateral feet. right breast lumpectomy 2006 - [place]. Bilateral foot surgeries. left wrist Hx Anesthesia Reactions: No Infectious Disease History: No Infectious Disease History: Denies: Hx Hepatitis, Hx Human Immunodeficiency Virus (HIV), History Other Infectious Disease, Traveled Outside the [place] in Last 30 Days - Family History Known Family History: Positive: Other - cancer - Social History Alcohol Use: Weekly Alcohol Amount: reports drinking "beers" during the week Hx Substance Use: Yes Substance Use Type: Reports: Cocaine, Heroin, Marijuana, Sedatives Substance Use Comment - Amount & Last Used: last used heroin & cocaine & unknown substance on 12/09/18 Hx Tobacco Use: Yes Smoking Status (MU): Heavy Every Day Tobacco Smoker Type: Cigarettes Amount Used/How Often: 1 1/2 PPD for 35 years Length of Time of Smoking/Using Tobacco: 48 YRS Have You Smoked in the Last Year: Yes Review of Systems Positive: Other - constipation Neurological: Other - hallucinations Positive: Other - paranoid All Other Systems Reviewed And Are Negative: Yes Physical Exam - Summary Physical Exam Summary: Constitutional: Well-developed, Well-nourished, Alert. (-) Distressed Skin: Warm, Dry HENT: Normocephalic; Atraumatic Eyes: Conjunctiva normal Neck: Musculoskeletal ROM normal neck. (-) JVD, (-) Stridor, (-) Nuchal rigidity Cardio: Rhythm regular, rate normal, Heart sounds normal; Intact distal pulses; Radial pulses are 2+ and symmetric. (-) Murmur Pulmonary/Chest wall: Effort normal. (-) Respiratory distress, (-) Wheezes, (-) Rales Abd: Soft, (-) tenderness, (-) Distension, (-) Guarding, (-) Rebound Musculoskeletal: (-) Edema Lymph: (-) Cervical adenopathy Neuro: Alert, Oriented x3 Psych: Positive auditory hallucinations Triage Information Reviewed: Yes Vital Signs On Initial Exam: Initial Vitals Temp Pulse Resp BP Pulse Ox 97.7 F 80 16 113/82 100 12/14/18 10:10 12/14/18 10:10 12/14/18 10:10 12/14/18 10:10 12/14/18 10:10 Vital Signs Reviewed: Yes Procedures - Sedation Patient Received Moderate/Deep Sedation with Procedure: No Diagnostics - Vital Signs Vital Signs Temp Pulse Resp BP Pulse Ox 12/14/18 10:10 97.7 F 80 16 113/82 100 - Laboratory Result Diagrams: 12/14/18 11:02 12/14/18 11:02 Lab Statement: Any lab studies that have been ordered have been reviewed, and results considered in the medical decision making process. Re-Evaluation - Re-Evaluation 1st re-eval Re-Evaluation Time: 12:36 Change: Unchanged Comment: Pt can be d/c'ed with dx of substance induced mood disorder as per Dr. Edward. Got milk of magnesia, tolerated PO. Course/Dx - Course Course Of Treatment: 53 -year-old female with a history of substance use, schizophrenia who presents with auditory hallucinations the setting of substance use. Patient also reports being constipated, will give milk of magnesia. Abdomen soft. - Differential Dx/Clinical Impression Provider Diagnosis: Substance induced mood disorder Discharge ED - Sign-Out/Discharge Documenting (check all that apply): Patient Departure - Discharge Plan Condition: Stable Disposition: HOME Referrals: [facility] [Outside] - Billing Disposition and Condition Condition: STABLE Disposition: Home - Attestation Statements Document Initiated by Moniqueibshaggy: Yes Documenting Scribe: Melissa Mcduffie Provider For Whom Coy is Documenting (Include Credential): Tanya Scott MD. Scribe Attestation: IMelissa, scribed for Tanya Sctot MD. on 12/14/18 at 1238. Scribe Documentation Reviewed: Yes Provider Attestation: The documentation as recorded by the scribe, Melissa Mcduffie accurately reflects the service I personally performed and the decisions made by me, Tanya Scott MD. Status of Scribe Document: Viewed
[2018-12-14 11:17] LABS: ABS Eosinophils 0.4 10^3/ul (0-0.6); ABS Lymphocytes 2.7 10^3/ul (1.0-4.8); ABS Monocytes 0.6 10^3/ul (0-0.8); ABS Neutrophils 4.1 10^3/ul (1.5-7.7); Eosinophil % 4.6 %; Hematocrit 38 % (35-47); Hemoglobin 13.3 g/dL (12.0-16.0); Lymphocyte % 34.2 %; Mean Corpuscular HGB Conc 35 g/dL (31-36); Mean Corpuscular Hemoglobin 32 pg (27-31); Mean Corpuscular Volume 93 fL (80-97); Mean Platelet Volume 6.5 fL (7.4-10.4); Nucleated Red Blood Cells % 0.1; Platelet Count 425 10^3/uL (150-450); Red Blood Count 4.12 10^6 /uL (3.70-4.87); Red Cell Distribution Width 14 % (10-15); White Blood Count 7.8 10^3/uL (3.5-10.8)
[2018-12-14 11:32] LABS: ALT 44 U/L (7-52); AST 45 U/L (13-39); Albumin 3.8 g/dL (3.2-5.2); Albumin/Globulin Ratio 1.3 (1-3); Alkaline Phosphatase 66 U/L (34-104); Anion Gap 5 mmol/L (2-11); BUN/Creatinine Ratio 23.4 (8-20); Blood Urea Nitrogen 18 mg/dL (6-24); CO2 Carbon Dioxide 26 mmol/L (22-32); Calcium 9.3 mg/dL (8.6-10.3); Chloride 111 mmol/L (101-111); EGFR African American 94.9 (>60); EGFR Non-African American 78.4 (>60); Globulin 2.9 g/dL (2-4); Glucose 88 mg/dL (70-100); Sodium 142 mmol/L (135-145); Total Protein 6.7 g/dL (6.4-8.9)
[2018-12-14 11:50] LABS: Acetaminophen < 15 mcg/mL; Alcohol < 10 mg/dL (<10); Salicylate < 2.50 mg/dL (<30)
[2018-12-14 11:55] LABS: TSH (Thyroid Stimulating Horm) 0.68 mcIU/mL (0.34-5.60)
[2018-12-14 12:47] VITALS: BP 118/90
== END 2018-12-14 12:15 | disposition home or self-care (01) ==
LOC: ED 10:10
DX: F19.94 Other psychoactive substance use, unspecified with psychoactive substance-induced mood disorder (principal); K59.00 Constipation, unspecified; I10 Essential (primary) hypertension; J44.9 Chronic obstructive pulmonary disease, unspecified; Z79.01 Long term (current) use of anticoagulants; F20.9 Schizophrenia, unspecified; Z88.0 Allergy status to penicillin; F17.210 Nicotine dependence, cigarettes, uncomplicated
CPT/HCPCS: 36415; 80053; 80320; 80329; 84443; 85025; 99284; A9270-GY; G0480

== ENCOUNTER 2019-01-12 21:34 | Emergency (ER) | payer OTHER ==
[2019-01-12] MEDS ORDERED: NS 0.9% 1000 ML** 1,000 ML IV ONE (22:08)
--- NOTE | 2019-01-12 22:13 | ED ---
Substance Abuse/Use - HPI Summary HPI Summary: This pt is a 53 Y/O F presenting as a 943 to [facility] and brought in by EMS after her daughter called reporting that the pt has been drinking and taking excessive quantities of Seroquel today. Currently, the pt states that she has a dry throat. She states that she wants to hurt herself and has been feeling this way for the last two days, starting on 01/12/19. Due to her altered mental status she will be a level 5 caveat. - History Of Current Complaint Chief Complaint: EDSubstanceAbuse Stated Complaint: AMS PER EMS Time Seen by Provider: 01/12/19 22:07 Hx Obtained From: Family/Assistant Women'[employer] Rowing [employer] - daughter, EMS Hx From Patient Unobtainable Due To: Altered Mental Status Associated Signs And Symptoms: Other: - Suicidal ideations, gestures of self harm - Allergies/Home Medications Allergies/Adverse Reactions: Allergies Allergy/AdvReac Type Severity Reaction Status Date / Time Penicillins Allergy Swelling Verified 12/04/18 18:20 PMH/Surg Hx/FS Hx/Imm Hx Previously Healthy: Yes - Pt is a level 5 caveat due to her altered mental status Endocrine/Hematology History: Reports: Hx Anticoagulant Therapy, Hx Anemia - hx of, no meds Denies: Hx Diabetes, Hx Thyroid Disease Cardiovascular History: Reports: Hx Hypertension, Other Cardiovascular Problems/ Disorders - 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 Denies: Hx Congestive Heart Failure, Hx Pacemaker/ICD Respiratory History: Reports: Hx Asthma - prn inhaler, Hx Chronic Bronchitis, Hx Chronic Obstructive Pulmonary Disease (COPD) - albuterol inhaler - still smokes "alot", Other Respiratory Problems/Disorders - COPD, pt unsure which [facility] doctor follows her GI History: Reports: Hx Gastroesophageal Reflux Disease - no meds currently Denies: Hx Ulcer, Other GI Disorders History: Denies: Hx Renal Disease Musculoskeletal History: Reports: Hx Back Problems - pt states, "the discs in my back are deteriorating", Other Musculoskeletal History - neck/shoulder pain, evaluated in pain clinic feb 2016, says no tx Sensory History: Reports: Hx Contacts or Glasses - pt states she does not have them with her at [facility] Denies: Hx Glaucoma, Hx Hearing Aid Opthamlomology History: Reports: Hx Contacts or Glasses - pt states she does not have them with her at [facility] Denies: Hx Glaucoma Neurological History: Reports: Hx Migraine - reports weekly, no meds Denies: Other Neuro Impairments/Disorders Psychiatric History: Reports: Hx Anxiety, Hx Depression, Hx Panic Disorder - as stated by pt., Hx Post Traumatic Stress Disorder, Hx Inpatient Treatment, Hx Community Mental Health Tx - as stated by pt., Hx Schizophrenia, Hx Bipolar Disorder, Hx of Violent Episodes Against Others, Hx Substance Abuse, Other Psychiatric Issues/Disorders - auditory and visual hallucinations Denies: Hx Eating Disorder - Cancer History Hx Chemotherapy: No Hx Radiation Therapy: No - Surgical History Surgical History: Yes Surgery Procedure, Year, and Place: x3 - [facility]. UTERINE ABLATION - [facility]. hysterectomy - [facility]. screws placed in bilateral feet. right breast lumpectomy 2006 - . Bilateral foot surgeries. left wrist Hx Anesthesia Reactions: No - Immunization History Immunizations Up to Date: Yes Infectious Disease History: No Infectious Disease History: Denies: Hx Hepatitis, Hx Human Immunodeficiency Virus (HIV), History Other Infectious Disease, Traveled Outside the US in Last 30 Days - Family History Known Family History: Positive: Other - cancer - Social History Occupation: Unemployed Lives: With Family Alcohol Use: Weekly Alcohol Amount: reports drinking "beers" during the week Hx Substance Use: Yes Substance Use Type: Reports: Cocaine, Heroin, Marijuana, Sedatives Substance Use Comment - Amount & Last Used: Crack, marijuana, abuse of prescription meds. Hx Tobacco Use: Yes Smoking Status (MU): Heavy Every Day Tobacco Smoker Type: Cigarettes Amount Used/How Often: 1 1/2 PPD for 35 years Length of Time of Smoking/Using Tobacco: 48 YRS Have You Smoked in the Last Year: Yes Review of Systems - ROS Summary Review of Systems Summary: Home Medications Medication Instructions Recorded Confirmed Type OLANzapine TAB* [Zyprexa 5 MG TAB*] 5 mg PO DAILY 12/05/18 12/14/18 History Albuterol HFA INHALER* [Ventolin 2 puff INH Q4HR PRN 12/14/18 12/14/18 History HFA Inhaler*] Mometasone/Formoter 200/5 MDI* 2 puff INH BID 12/14/18 12/14/18 History [Dulera 200/5 MDI*] Nicotine PATCH 21 MG/24 HR* 21 mg TRANSDERM DAILY 12/14/18 12/14/18 History QUEtiapine TAB* [Seroquel 100 MG *] 100 mg PO BEDTIME 12/14/18 12/14/18 History Pt is a level 5 caveat due to her altered mental status. Psychological: Other - suicidal and self harm ideations All Other Systems Reviewed And Are Negative: No Physical Exam - Summary Physical Exam Summary: General: Well-developed, Well-nourished cachectic appearing female in no distress, sleepy, Edentulism No acute distress. HEENT: Normocephalic, Atraumatic. Eyes: Conjuctiva normal, PERRL. Ears: TMs within normal limits. Nares: (-) discharge, (-) erythema. Oropharynx: Clear, mucous membranes moist, (-) exudates. Neck: Soft, FROM, (-) lymphadenopathy, (-) thyromegaly, (-) JVD. Cardiovascular: Normal sinus rhythm, (-) murmur. Lungs: Clear to auscultation bilaterally (-) wheezes, (-) rales, (-) rhonchi. Abdomen: Soft, Mild suprapubic tenderness, non-distended, (-) organomegaly, normal bowel sounds. Back: (-) CVA tenderness Extremities: No edema. Skin: Warm, dry, (-) rash. Neuro: Alert and oriented x3, no focal deficits. Psychiatric: Mood normal, affect normal. Pt is a level 5 caveat due to an altered mental status. Triage Information Reviewed: Yes Vital Signs On Initial Exam: Initial Vitals Temp Pulse Resp BP Pulse Ox 98.3 F 105 14 119/92 96 01/12/19 21:42 01/12/19 21:42 01/12/19 21:42 01/12/19 21:42 01/12/19 21:42 Vital Signs Reviewed: Yes Completion Of Physical Exam Limited Due To: Altered Mental Status Procedures - Sedation Patient Received Moderate/Deep Sedation with Procedure: No Diagnostics - Vital Signs Vital Signs Temp Pulse Resp BP Pulse Ox 01/12/19 21:42 98.3 F 105 14 119/92 96 - Laboratory Result Diagrams: 01/12/19 22:35 01/12/19 22:35 Lab Statement: Any lab studies that have been ordered have been reviewed, and results considered in the medical decision making process. - EKG 4 Cardiac Rate: Tachycardia - 103 BPM EKG Rhythm: Sinus Tachycardia ST Segment: Normal Ectopy: None Summary of EKG Findings: EKG at 2148 reveals sinus tachycardia at 103 BPM, no acute changes, no ischemic changes. This EKG was reviewed and interpreted by Dr. Bear at 2151 01/12/19. Course/Dx - Course Course Of Treatment: 53-year-old female presented by ambulance after patient somnolent at her niece's house. Patient admits to taking extra Seroquel tablets. She has a history of drug use. Patient says she was suicidal when she took the extra medications. Workup is essentially negative. Patient is cleared by mental health for discharge. She is medically cleared after 6 hours. This pt will be signed out to Dr. Alexandra from Dr. Bear at shift change 0700 01/13/19 pending a drug abuse social worker visit. - Diagnoses Provider Diagnoses: Substance abuse, Homeless - Physician Notifications Discussed Care Of Patient With: Jason Edward Time Discussed With Above Provider: 04:12 Instructed by Provider To: Other - Dr. Edward, psychiatrist, has declined the pt. She will be a hold for social work in the morning of 01/13/19. Discharge ED - Sign-Out/Discharge Documenting (check all that apply): Sign-Out Patient Signing out patient TO: Vj Alexandra - Discharge Plan Patient Education Materials: Polysubstance Abuse (ED) Referrals: No Primary Care Phys,NOPCP [Primary Care Provider] - Additional Instructions: Per completion of a mental health evaluation, you are cleared for release and do not require inpatient psychiatric hospitalization at this time. Please go to nearest emergency room or call 911 if safety concerns arise or condition worsens. Please contact one of the substance treatment services below for an appointment Substance Abuse Treatment Programs: [facility] [phone] Alcohol and Drug [place] [facility] Important Phone Numbers: [facility] Unit [phone] Suicide Prevention and Crisis Services........................ [phone] National Suicide Prevention Lifeline............................ 344-769-ZOVP (5117) [facility]....................... [phone] Alcoholics Anonymous............................................... [phone] [facility].............. [phone] [facility] Police.............................................. - Attestation Statements Document Initiated by Coy: Yes Documenting Scribe: Toby Vasques Provider For Whom Coy is Documenting (Include Credential): Rachel Bear MD Scribe Attestation: I, Toby Vasques, scribed for Rachel Bear MD on 01/13/19 at 0656. Scribe Documentation Reviewed: Yes Provider Attestation: The documentation as recorded by the Toby doan accurately reflects the service I personally performed and the decisions made by , Rachel Bear MD Status of Scribe Document: Viewed
[2019-01-12 22:58] LABS: ABS Eosinophils 0.3 10^3/ul (0-0.6); ABS Monocytes 0.4 10^3/ul (0-0.8); Eosinophil % 4.6 %; Hematocrit 38 % (35-47); Hemoglobin 13.2 g/dL (12.0-16.0); Lymphocyte % 35.1 %; Mean Corpuscular HGB Conc 34 g/dL (31-36); Mean Corpuscular Hemoglobin 32 pg (27-31); Mean Corpuscular Volume 93 fL (80-97); Mean Platelet Volume 6.5 fL (7.4-10.4); Nucleated Red Blood Cells % 0.2; Platelet Count 373 10^3/uL (150-450); Red Blood Count 4.11 10^6 /uL (3.70-4.87); Red Cell Distribution Width 15 % (10-15); White Blood Count 5.7 10^3/uL (3.5-10.8)
[2019-01-12 23:13] LABS: ALT 40 U/L (7-52); AST 31 U/L (13-39); Albumin 4.2 g/dL (3.2-5.2); Albumin/Globulin Ratio 1.6 (1-3); Alkaline Phosphatase 97 U/L (34-104); Anion Gap 7 mmol/L (2-11); BUN/Creatinine Ratio 17.8 (8-20); Blood Urea Nitrogen 13 mg/dL (6-24); CO2 Carbon Dioxide 28 mmol/L (22-32); Calcium 10.5 mg/dL (8.6-10.3); Chloride 105 mmol/L (101-111); EGFR African American 100.9 (>60); EGFR Non-African American 83.4 (>60); Globulin 2.7 g/dL (2-4); Glucose 94 mg/dL (70-100); Sodium 140 mmol/L (135-145); Total Protein 6.9 g/dL (6.4-8.9)
[2019-01-12 23:43] LABS: Acetaminophen < 15 mcg/mL; Alcohol < 10 mg/dL (<10); Salicylate < 2.50 mg/dL (<30)
[2019-01-12 23:58] LABS: TSH (Thyroid Stimulating Horm) 0.67 mcIU/mL (0.34-5.60)
[2019-01-13 06:16] LABS: Urine Appearance Clear; Urine Bilirubin Negative (Negative); Urine Blood Negative (Negative); Urine Color Yellow; Urine Glucose Negative (Negative); Urine Ketones Negative (Negative); Urine Nitrite Negative (Negative); Urine Protein Negative (Negative); Urine Specific Gravity 1.015 (1.010-1.030); Urine Urobilinogen Negative (Negative)
[2019-01-13 06:34] LABS: Urine Benzodiazepine Screen None Detected (None Detect); Urine Opiates Screen None Detected (None Detect)
--- NOTE | 2019-01-13 07:13 | ED ---
Progress - Progress Note Progress Note: This patient was signed out from Dr. Bear at shift change at 0700 on 01/13/19 awaiting social secretary consultation. Re-Evaluation - Re-Evaluation First Eval Re-Evaluation Time: 08:09 Comment: pulley worker met with patient. Course/Dx - Course Course Of Treatment: This patient was signed out by Dr. Bear pending social work consult. Dariela, social secretary, met with patient. Dariela reports patient will be discharged to [facility] for assistance with housing. Patient in agreement with this. Patient will be discharged to [facility]. - Diagnoses Provider Diagnoses: Substance abuse, Homeless Discharge ED - Sign-Out/Discharge Documenting (check all that apply): Patient Departure - Discharge, Receiving Sign-Out Receiving patient FROM: Rachel Bear - Discharge Plan Condition: Stable Disposition: HOME Patient Education Materials: Polysubstance Abuse (ED) Referrals: [facility] [Outside] No Primary Care Phys,NOPCP [Primary Care Provider] - Additional Instructions: Per completion of a mental health evaluation, you are cleared for release and do not require inpatient psychiatric hospitalization at this time. Please go to nearest emergency room or call 911 if safety concerns arise or condition worsens. Please contact one of the substance treatment services below for an appointment Substance Abuse Treatment Programs: [facility] Alcohol and Drug [place] [facility] Important Phone Numbers: [facility]al Services Unit [phone] Suicide Prevention and Crisis Services........................ [phone] National Suicide Prevention Lifeline............................ 191-732-SHHA (5069) [facility]....................... [phone] Alcoholics Anonymous............................................... [phone] [facility].............. [phone] [facility] Police.............................................. - Billing Disposition and Condition Condition: STABLE Disposition: Home - Attestation Statements Document Initiated by Coy: Yes Documenting Scribe: Sylvia Kamara Provider For Whom Coy is Documenting (Include Credential): Vj Alexandra MD Scribe Attestation: Sylvia Albert scribed for Vj Alexandra MD on 01/15/19 at 0915. Scribe Documentation Reviewed: Yes Provider Attestation: The documentation as recorded by the Sylvia doan accurately reflects the service I personally performed and the decisions made by , Vj Alexandra MD Status of Scribe Document: Viewed
[2019-01-13 08:37] VITALS: BP 132/76
== END 2019-01-13 08:15 | disposition home or self-care (01) ==
LOC: ED 21:34
DX: F19.10 Other psychoactive substance abuse, uncomplicated (principal); Z59.0 Homelessness; R00.0 Tachycardia, unspecified; R45.851 Suicidal ideations; I10 Essential (primary) hypertension; Z86.718 Personal history of other venous thrombosis and embolism; Z79.01 Long term (current) use of anticoagulants; J44.9 Chronic obstructive pulmonary disease, unspecified; F20.9 Schizophrenia, unspecified; F31.9 Bipolar disorder, unspecified; Z88.0 Allergy status to penicillin; F17.210 Nicotine dependence, cigarettes, uncomplicated
CPT/HCPCS: 36415; 80053; 80307; 80320; 80329; 81003; 83605; 84443; 85025; 93005; 99285; G0480

== ENCOUNTER 2019-02-03 12:55 | Emergency (ER) | payer OTHER ==
--- OUTSIDE RECORDS SUMMARY | 2019-02-03 13:03 | XMS REPORT ---
:1965 Author Organization [facility] Care Team Providers Name Role Phone Natalia Robison Primary Care Physician Unavailable Allergies, Adverse Reactions, Alerts Allergy Code CodeSystem Reaction Severity Criticality Status Start Substance Date Moderate Medications Medication Medication Medication Start Stop Route Dose Status Fill Code CodeSystem Date Date Instructions Seroquel 886084 RxNorm 2018-12 oral 100 mg 1 active Take 1 tablet -14 tablet at by mouth at bedtime bedtime for 30 day(s) duloxetine 678145 RxNorm 2018-12 oral 60 mg active for 30 -14 capsule,d day(s) elayed release(D R/EC) Problems Problem Name Code CodeSystem Alternate Alternate Start End Status Narrative Code CodeSystem Date Date Post-traumat 89849635 SNOMED-CT 2018-02 Active ic stress 0-24 disorder, unspecified Relevant diagnostic tests/laboratory data Narrative No Information Procedures Procedure Code CodeSystem Target Date of Status Service Device Device Device Name Site Procedure Delivery Code Name UID Location Psychiatric 129606 SNOMED-CT () 2018-12-22 complete Mental diagnostic [address], [id number] SNOMED-CT () 2018-12-01 complete Mental d Health[address], [id number] SNOMED-CT () 2018-12-14 complete Mental d [address], [id number] Encounters/Encounter Diagnoses Encounter Encounter Diagnosis Diagnosis Name Diagnosis Date of Service Name Code Code CodeSystem Diagnosis Delivery Location Non-Billable [id number] Post-traumatic SNOMED-CT 2019-01-02 Behavioral stress Health disorder, Clinic , , unspecified , Vital Signs No Information Social History Element Description Description Start End Code CodeSystem AdditionalInfo Date Date SexAssignedAtBirth Female 0 F AdministrativeGender 04-05 Hospital Discharge Instructions Reason For Referral Medical Equipment FDA Assessments
[2019-02-03 13:05] VITALS: BP 140/79
--- NOTE | 2019-02-03 13:19 | UC ---
FLU HPI - History of Current Complaint Chief Complaint: UCGeneralIllness Stated Complaint: COUGH FEVER CHILLS SORE THROAT Time Seen by Provider: 02/03/19 13:19 Hx Last Menstrual Period: hystert Pain Intensity: 10 - Allergy/Home Medications Allergies/Adverse Reactions: Allergies Allergy/AdvReac Type Severity Reaction Status Date / Time Penicillins Allergy Swelling Verified 02/03/19 13:05 PMH/Surg Hx/FS Hx/Imm Hx Other History Of: Anticoagulant Therapy - Surgical History Surgical History: Yes Surgery Procedure, Year, and Place: x3 - [facility]. UTERINE ABLATION - [facility]. hysterectomy - [facility]. screws placed in bilateral feet. right breast lumpectomy 2006 - [place]. Bilateral foot surgeries. left wrist - Family History Known Family History: Positive: Other - cancer - Social History Alcohol Use: None Alcohol Amount: reports drinking "beers" during the week Substance Use Type: None Substance Use Comment - Amount & Last Used: Crack, marijuana, abuse of prescription meds. Smoking Status (MU): Heavy Every Day Tobacco Smoker Type: Cigarettes Amount Used/How Often: 1 1/2 PPD for 35 years Length of Time of Smoking/Using Tobacco: 48 YRS Have You Smoked in the Last Year: Yes When Did the Patient Quit Smoking/Using Tobacco: 1 PPD Household Exposure Type: Cigarettes - Immunization History Most Recent Influenza Vaccination: states she is due for one Most Recent Tetanus Shot: 2012 Most Recent Pneumonia Vaccination: never Physical Exam Vital Signs: Initial Vital Signs Temp 97.5 F 02/03/19 13:01 Pulse 100 02/03/19 13:01 Resp 20 02/03/19 13:01 BP 140/79 02/03/19 13:01 Pulse Ox 100 02/03/19 13:01 Discharge ED - Discharge Plan Referrals: Buck Patiño MD [Primary Care Provider] -
[2019-02-03 13:29] LABS: Influenza A Molecular NEGATIVE (Negative); Influenza B Molecular NEGATIVE (Negative)
--- NOTE | 2019-02-03 13:50 | UC ---
FLU HPI - HPI Summary HPI Summary: 53 yo female presents with flu-like symptoms. She tells me that for the past week she has had body ache, fatigue, sinus pain/pressure/congestion, sore throat , and non-productive cough. Over the last 2 days has felt chills and has a raspy voice with increased sore throat. She has not been taking anything OTC. Is concerned today about bacterial infection as she is currently living in a homeless fci and there are many "meth heads" and "sick people" around her. She denies SOB, chest pain, n/v/d, dysuria. - History of Current Complaint Chief Complaint: UCGeneralIllness Stated Complaint: COUGH FEVER CHILLS SORE THROAT Time Seen by Provider: 02/03/19 13:19 Hx Obtained From: Patient Hx Last Menstrual Period: hystert Onset/Duration: Gradual Onset Severity Currently: Severe Severity Initially: Severe Pain Intensity: 10 Pain Scale Used: 0-10 Numeric - Allergy/Home Medications Allergies/Adverse Reactions: Allergies Allergy/AdvReac Type Severity Reaction Status Date / Time Penicillins Allergy Swelling Verified 02/03/19 13:05 PMH/Surg Hx/FS Hx/Imm Hx Respiratory History: COPD Psychological History: Schizophrenia Other History Of: Anticoagulant Therapy - Surgical History Surgical History: Yes Surgery Procedure, Year, and Place: x3 - [facility]. [place] [facility] [place] [facility] [place] screws placed in bilateral feet. right breast lumpectomy 2006 - [place]. Bilateral foot surgeries. left wrist - Family History Known Family History: Positive: Other - cancer - Social History Alcohol Use: None Alcohol Amount: reports drinking "beers" during the week Substance Use Type: None Substance Use Comment - Amount & Last Used: Crack, marijuana, abuse of prescription meds. Smoking Status (MU): Heavy Every Day Tobacco Smoker Type: Cigarettes Amount Used/How Often: 1 1/2 PPD for 35 years Length of Time of Smoking/Using Tobacco: 48 YRS Have You Smoked in the Last Year: Yes When Did the Patient Quit Smoking/Using Tobacco: 1 PPD Household Exposure Type: Cigarettes - Immunization History Most Recent Influenza Vaccination: states she is due for one Most Recent Tetanus Shot: 2013 Most Recent Pneumonia Vaccination: never Review of Systems All Other Systems Reviewed And Are Negative: No Constitutional: Positive: Fatigue, Other - Body aches Skin: Positive: Negative Eyes: Positive: Negative ENT: Positive: Sore Throat, Ear Ache, Nasal Discharge, Sinus Congestion, Sinus Pain/Tenderness Respiratory: Positive: Cough Cardiovascular: Positive: Negative Gastrointestinal: Positive: Negative Neurovascular: Positive: Negative Neurological: Positive: Negative Psychological: Positive: Negative Physical Exam - Summary Physical Exam Summary: GENERAL: NAD. WDWN. No pain distress. SKIN: No rashes, sores, lesions, or open wounds. HEENT: Head: AT/NC Eyes: EOM intact. Conjunctiva clear without inflammation or discharge. Ears: Hearing grossly normal. TMs intact, no bulging, erythema, or edema. Nose: Nasal mucosa pink and moist. NTTP maxillary and frontal sinus. Throat: Posterior oropharynx with mild erythema. No exudates or tonsillar enlargement. Uvula midline. NECK: Supple. Nontender. No lymphadenopathy. CHEST: CTAB. No accessory muscle use. Breathing comfortably and in no distress. CV: RRR. Pulses intact. Cap refill <2seconds NEURO: Alert. PSYCH: Age appropriate behavior. Triage Information Reviewed: Yes Vital Signs: Initial Vital Signs Temp 97.5 F 02/03/19 13:01 Pulse 100 02/03/19 13:01 Resp 20 02/03/19 13:01 BP 140/79 02/03/19 13:01 Pulse Ox 100 02/03/19 13:01 Laboratory Tests 02/03/19 13:17 Influenza A (Rapid) Negative Influenza B (Rapid) Negative Vital Signs Reviewed: Yes Flu Course/Dx - Course Course Of Treatment: POC flu negative. Given living situation, length of symptoms, and hx of COPD will treat with anbx today. Suspect URI - Differential Dx/Diagnosis Provider Diagnosis: Upper respiratory infection Discharge ED - Sign-Out/Discharge Documenting (check all that apply): Patient Departure All imaging exams completed and their final reports reviewed: No Studies - Discharge Plan Condition: Stable Disposition: HOME Prescriptions: Azithromycin TAB* [Zithromax TAB (Z-ODETTE) 250 mg #6 tabs] 2 tab PO .TODAY, THEN 1 DAILY #1 odette Ibuprofen TAB* [Motrin TAB* 600 MG] 600 mg PO Q8H #30 tab Patient Education Materials: Upper Respiratory Infection (ED) Forms: *Gen. Provider Communication Referrals: Buck Patiño MD [Primary Care Provider] - Additional Instructions: If you develop a fever, shortness of breath, chest pain, new or worsening symptoms - please call your PCP or go to the ED immediately. Your blood pressure was high at todays visit. Please see your primary provider within 4 weeks for recheck and re-evaluation. - Billing Disposition and Condition Condition: STABLE Disposition: Home
[2019-02-03] MEDS ORDERED: Azithromycin TAB* 250 MG PO ONE (13:59)
== END 2019-02-03 14:26 | disposition home or self-care (01) ==
LOC: UCEAST 12:55
DX: J06.9 Acute upper respiratory infection, unspecified (principal); R53.83 Other fatigue; H92.09 Otalgia, unspecified ear; F17.210 Nicotine dependence, cigarettes, uncomplicated; Z88.0 Allergy status to penicillin
CPT/HCPCS: 99212; A9270-GY; G0463

== ENCOUNTER 2019-02-13 11:42 | Emergency (ER) | payer OTHER ==
--- NOTE | 2019-02-13 12:02 | ED ---
Psychiatric Complaint - HPI Summary HPI Summary: Patient is a 53 y/o F presenting to the ED on a 941 and escorted by state police for a psychiatric complaint. Per state police, patient was expressing HI and SI with a plan. On arrival to [facility], patient is displaying aggressive behavior towards staff. Patient reports having SI, HI, and command hallucinations. She denies chest pain, myalgia, or headache. Patient admits to being non-compliant with her medications for a PMHx of schizophrenia. She also notes to using cocaine for the first time in several years 4 days ago. Patient admits occasional alcohol use, none on 02/13/19. She is homeless and states she is working on finding a place to live. Medications reviewed. Allergies noted. - History Of Current Complaint Time Seen by Provider: 02/13/19 11:51 Hx Obtained From: Patient, Other: - Police Hx Last Menstrual Period: hystert Onset/Duration: Sudden Onset, Still Present Timing: Constant Severity Initially: Moderate Severity Currently: Moderate Character: Angry Aggravating Factor(s): Medication Non-compliance, Drug Use Alleviating Factor(s): Nothing Associated Signs And Symptoms: Positive: Hostile, Hallucinating Related History: Positive For: Prior Psychiatric Issues Has Suicidal: Reports: Thoughts, With A Plan Has Homicidal: Reports: Thoughts, With A Plan Ingestion History: Type/Name Of Drug - Cocaine, Approximate Time Of Ingestion - 4 days ago - Allergies/Home Medications Allergies/Adverse Reactions: Allergies Allergy/AdvReac Type Severity Reaction Status Date / Time Penicillins Allergy Swelling Verified 02/03/19 13:05 Home Medications: Home Medications traMADol TAB* [Ultram*] 50 mg PO Q12H PRN 02/13/19 [History Confirmed 02/13/19] PMH/Surg Hx/FS Hx/Imm Hx Previously Healthy: Yes Endocrine/Hematology History: Reports: Hx Anticoagulant Therapy, Hx Anemia - hx of, no meds Denies: Hx Diabetes, Hx Thyroid Disease Cardiovascular History: Reports: Hx Hypertension, Other Cardiovascular Problems/ Disorders - 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 Denies: Hx Congestive Heart Failure, Hx Pacemaker/ICD Respiratory History: Reports: Hx Asthma - prn inhaler, Hx Chronic Bronchitis, Hx Chronic Obstructive Pulmonary Disease (COPD) - albuterol inhaler - still smokes "alot", Other Respiratory Problems/Disorders - COPD, pt unsure which [facility] doctor follows her GI History: Reports: Hx Gastroesophageal Reflux Disease - no meds currently Denies: Hx Ulcer, Other GI Disorders History: Denies: Hx Renal Disease Musculoskeletal History: Reports: Hx Back Problems - pt states, "the discs in my back are deteriorating", Other Musculoskeletal History - neck/shoulder pain, evaluated in pain clinic feb 2016, says no tx Sensory History: Reports: Hx Contacts or Glasses - pt states she does not have them with her at [facility] [place] Denies: Hx Glaucoma, Hx Legally Blind, Hx Deafness, Hx Hearing Aid Opthamlomology History: Reports: Hx Contacts or Glasses - pt states she does not have them with her at [facility] [place] Denies: Hx Glaucoma, Hx Legally Blind EENT History: Denies: Hx Deafness Neurological History: Reports: Hx Migraine - reports weekly, no meds Denies: Other Neuro Impairments/Disorders Psychiatric History: Reports: Hx Anxiety, Hx Depression, Hx Panic Disorder - as stated by pt., Hx Post Traumatic Stress Disorder, Hx Inpatient Treatment, Hx Community Mental Health Tx - as stated by pt., Hx Schizophrenia, Hx Bipolar Disorder, Hx of Violent Episodes Against Others, Hx Substance Abuse, Other Psychiatric Issues/Disorders - auditory and visual hallucinations Denies: Hx Eating Disorder - Cancer History Hx Chemotherapy: No Hx Radiation Therapy: No - Surgical History Surgical History: Yes Surgery Procedure, Year, and Place[place] [facility] [place] [facility] [place] [facility] [place]. screws placed in bilateral feet. right breast lumpectomy 2006 - [place]. Bilateral foot surgeries. left wrist Hx Anesthesia Reactions: No Infectious Disease History: No Infectious Disease History: Denies: Hx Hepatitis, Hx Human Immunodeficiency Virus (HIV), History Other Infectious Disease, Traveled Outside the in Last 30 Days - Family History Known Family History: Positive: Other - cancer - Social History Occupation: Unemployed Alcohol Use: Occasionally Alcohol Amount: reports drinking "beers" during the week Hx Substance Use: Yes Substance Use Type: Reports: Cocaine Substance Use Comment - Amount & Last Used: Crack, marijuana, abuse of prescription meds. Hx Tobacco Use: Yes Smoking Status (MU): Heavy Every Day Tobacco Smoker Type: Cigarettes Amount Used/How Often: 1 1/2 PPD for 35 years Length of Time of Smoking/Using Tobacco: 48 YRS Have You Smoked in the Last Year: Yes Review of Systems Negative: Chest Pain Negative: Myalgia Negative: Headache Psychological: Other - Positive aggression, HI, SI, and hallucinations All Other Systems Reviewed And Are Negative: Yes Physical Exam - Summary Physical Exam Summary: Constitutional: Well-developed, Well-nourished, Alert. (-) Distressed. Tearful. Skin: Warm, Dry HENT: Normocephalic; Atraumatic Eyes: Conjunctiva normal Neck: Musculoskeletal ROM normal neck. (-) JVD, (-) Stridor, (-) Tracheal deviation Cardio: Rhythm regular, rate normal, Heart sounds normal; Intact distal pulses; Radial pulses are 2+ and symmetric. (-) Murmur Pulmonary/Chest wall: Effort normal. (-) Respiratory distress, (-) Wheezes, (-) Rales Abd: Soft, (-) tenderness, (-) Distension, (-) Guarding, (-) Rebound Musculoskeletal: (-) Edema Lymph: (-) Cervical adenopathy Neuro: Alert, Oriented x3 Psych: Mood and affect Normal Triage Information Reviewed: Yes Vital Signs Reviewed: Yes Procedures - Sedation Patient Received Moderate/Deep Sedation with Procedure: No Diagnostics - Laboratory Result Diagrams: 02/13/19 12:19 02/13/19 12:19 Lab Statement: Any lab studies that have been ordered have been reviewed, and results considered in the medical decision making process. Re-Evaluation - Re-Evaluation First Eval Re-Evaluation Time: 12:10 Change: Unchanged Comment: At 12:10, patient is medically cleared for a mental health evaluation. Course/Dx - Course Course Of Treatment: Patient is here after having a outburst at [facility]. Patient initially was saying homicidal thoughts but denied any homicidal thoughts here. Patient states she is suicidal but cannot really state a plan. Patient was medically cleared by myself. Patient was evaluated by the psychiatric team and they felt patient was safe for discharge which was also coordinated with patient 's outpatient psychologist. - Differential Dx/Clinical Impression Provider Diagnosis: PTSD (post-traumatic stress disorder), Schizophrenia, Bipolar disorder - Physician Notifications Discussed Care Of Patient With: Jason Edward - At 13:44, lamp replacer reports that the patients case was reviewed by Dr. Jason Edward who will discharge the patient with a diagnosis of schizophrenia, bipolar disorder, and PTSD. Time Discussed With Above Provider: 13:44 Instructed by Provider To: Other - Discharge Discharge ED - Sign-Out/Discharge Documenting (check all that apply): Patient Departure - Discharge - Discharge Plan Condition: Stable Disposition: HOME Referrals: Buck Patiño MD [Primary Care Provider] - - Billing Disposition and Condition Condition: STABLE Disposition: Home - Attestation Statements Document Initiated by Scribe: Yes Documenting Scribe: Yolis Villegas Provider For Whom Scribe is Documenting (Include Credential): Michi Contreras MD Scribe Attestation: Yolis Albert, scribed for Michi Contreras MD on 02/13/19 at 1400. Scribe Documentation Reviewed: Yes Provider Attestation: The documentation as recorded by the Yolis doan accurately reflects the service I personally performed and the decisions made by Michi downing MD Status of Scribe Document: Viewed
[2019-02-13 12:31] LABS: ABS Basophils 0.1 10^3/ul (0-0.2); ABS Eosinophils 0.1 10^3/ul (0-0.6); ABS Lymphocytes 1.5 10^3/ul (1.0-4.8); ABS Monocytes 0.3 10^3/ul (0-0.8); ABS Neutrophils 3.9 10^3/ul (1.5-7.7); Eosinophil % 2.2 %; Hematocrit 44 % (35-47); Hemoglobin 15.1 g/dL (12.0-16.0); Lymphocyte % 25.6 %; Mean Corpuscular HGB Conc 34 g/dL (31-36); Mean Corpuscular Hemoglobin 32 pg (27-31); Mean Corpuscular Volume 93 fL (80-97); Mean Platelet Volume 6.9 fL (7.4-10.4); Nucleated Red Blood Cells % 0.1; Platelet Count 419 10^3/uL (150-450); Red Blood Count 4.74 10^6 /uL (3.70-4.87); Red Cell Distribution Width 15 % (10-15)
[2019-02-13 12:47] LABS: ALT 16 U/L (7-52); AST 19 U/L (13-39); Albumin 4.4 g/dL (3.2-5.2); Albumin/Globulin Ratio 1.4 (1-3); Alkaline Phosphatase 69 U/L (34-104); Anion Gap 5 mmol/L (2-11); BUN/Creatinine Ratio 13.2 (8-20); Blood Urea Nitrogen 9 mg/dL (6-24); CO2 Carbon Dioxide 31 mmol/L (22-32); Calcium 10.4 mg/dL (8.6-10.3); Chloride 103 mmol/L (101-111); EGFR African American 109.5 (>60); EGFR Non-African American 90.5 (>60); Globulin 3.1 g/dL (2-4); Glucose 102 mg/dL (70-100); Potassium 4.1 mmol/L (3.5-5.0); Sodium 139 mmol/L (135-145); Total Protein 7.5 g/dL (6.4-8.9)
[2019-02-13 12:59] LABS: Acetaminophen < 15 mcg/mL; Alcohol < 10 mg/dL (<10); Salicylate < 2.50 mg/dL (<30)
[2019-02-13 14:42] VITALS: BP 178/106
== END 2019-02-13 14:41 | disposition home or self-care (01) ==
LOC: ED 11:42
DX: F43.10 Post-traumatic stress disorder, unspecified (principal); F20.9 Schizophrenia, unspecified; K21.9 Gastro-esophageal reflux disease without esophagitis; I10 Essential (primary) hypertension; F31.9 Bipolar disorder, unspecified; F17.210 Nicotine dependence, cigarettes, uncomplicated; Z79.01 Long term (current) use of anticoagulants; Z79.899 Other long term (current) drug therapy
CPT/HCPCS: 36415; 80053; 80320; 80329; 85025; 99285; G0480

== ENCOUNTER 2019-02-16 16:24 | Emergency (ER) | payer OTHER ==
--- NOTE | 2019-02-16 16:45 | ED ---
Psychiatric Complaint - HPI Summary HPI Summary: Patient is a 53 y/o F presenting to the ED on a 945 for a psychiatric complaint. Patient was reportedly found by EMS or police running naked, but the patient does not recall the event. Patient admits HI and auditory hallucinations. She also notes chronic back pain at baseline. Any aggravating or alleviating factors are denied. Patient admits tobacco, cocaine, and crack use. PMHx is significant for schizophrenia. She has had several visits to [facility] in the past for mental health and had mental health evaluations. - History Of Current Complaint Time Seen by Provider: 02/16/19 16:34 Hx Obtained From: Patient Hx Last Menstrual Period: hystert Onset/Duration: Sudden Onset, Still Present Timing: Constant Severity Initially: Moderate Severity Currently: Moderate Character: Manic Aggravating Factor(s): Nothing Alleviating Factor(s): Nothing Associated Signs And Symptoms: Positive: Hallucinating Related History: Positive For: Prior Psychiatric Issues Has Homicidal: Reports: Thoughts - Allergies/Home Medications Allergies/Adverse Reactions: Allergies Allergy/AdvReac Type Severity Reaction Status Date / Time Penicillins Allergy Swelling Verified 02/13/19 14:42 PMH/Surg Hx/FS Hx/Imm Hx Previously Healthy: Yes Endocrine/Hematology History: Reports: Hx Anticoagulant Therapy, Hx Anemia - hx of, no meds Denies: Hx Diabetes, Hx Thyroid Disease Cardiovascular History: Reports: Hx Hypertension, Other Cardiovascular Problems/ Disorders - 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 doctor follows her GI History: Reports: Hx Gastroesophageal Reflux Disease - no meds currently Denies: Hx Ulcer, Other GI Disorders History: Denies: Hx Renal Disease Musculoskeletal History: Reports: Hx Back Problems - pt states, "the discs in my back are deteriorating", Other Musculoskeletal History - neck/shoulder pain, evaluated in pain clinic feb 2016, says no tx Sensory History: Reports: Hx Contacts or Glasses - pt states she does not have them with her at [facility] Denies: Hx Glaucoma, Hx Legally Blind, Hx Deafness, Hx Hearing Aid Opthamlomology History: Reports: Hx Contacts or Glasses - pt states she does not have them with her at [facility] Denies: Hx Glaucoma, Hx Legally Blind EENT History: Denies: Hx Deafness Neurological History: Reports: Hx Migraine - reports weekly, no meds Denies: Other Neuro Impairments/Disorders Psychiatric History: Reports: Hx Anxiety, Hx Depression, Hx Panic Disorder - as stated by pt., Hx Post Traumatic Stress Disorder, Hx Inpatient Treatment, Hx Community Mental Health Tx - as stated by pt., Hx Schizophrenia, Hx Bipolar Disorder, Hx Suicide Attempt, Hx of Violent Episodes Against Others, Hx Substance Abuse, Other Psychiatric Issues/Disorders - auditory and visual hallucinations Denies: Hx Eating Disorder - Cancer History Hx Chemotherapy: No Hx Radiation Therapy: No - Surgical History Surgical History: Yes Surgery Procedure, Year, and Place: x3 - [facility] [place]. [place]BL[place] - [facility] [place]. [place] - [facility] [place]. screws placed in bilateral feet. right breast lumpectomy 2006 - [place]. Bilateral foot surgeries. left wrist Hx Anesthesia Reactions: No Infectious Disease History: No Infectious Disease History: Denies: Hx Hepatitis, Hx Human Immunodeficiency Virus (HIV), History Other Infectious Disease - Family History Known Family History: Positive: Other - cancer - Social History Occupation: Unemployed Alcohol Use: Occasionally Alcohol Amount: reports drinking "beers" during the week Hx Substance Use: Yes Substance Use Type: Reports: Cocaine, Other Substance Use Comment - Amount & Last Used: Crack, marijuana, abuse of prescription meds. Hx Tobacco Use: Yes Smoking Status (MU): Heavy Every Day Tobacco Smoker Type: Cigarettes Amount Used/How Often: 1 1/2 PPD for 35 years Length of Time of Smoking/Using Tobacco: 48 YRS Have You Smoked in the Last Year: Yes Review of Systems Positive: Myalgia - Back pain, at baseline Psychological: Other - Positive auditory hallucinations and HI All Other Systems Reviewed And Are Negative: Yes Physical Exam - Summary Physical Exam Summary: Constitutional: Well-developed, Well-nourished, Alert. (-) Distressed Skin: Warm, Dry HENT: Normocephalic; Atraumatic Eyes: Conjunctiva normal Neck: Musculoskeletal ROM normal neck. (-) JVD, (-) Stridor, (-) Nuchal rigidity Cardio: Rhythm regular, tachycardic, Heart sounds normal; Intact distal pulses; Radial pulses are 2+ and symmetric. (-) Murmur Pulmonary/Chest wall: Effort normal. (-) Respiratory distress, (-) Wheezes, (-) Rales Abd: Soft, (-) tenderness, (-) Distension, (-) Guarding, (-) Rebound Musculoskeletal: (-) Edema Neuro: Alert, Oriented x3 Psych: +HI, auditory hallucinations, calm and cooperative Triage Information Reviewed: Yes Vital Signs Reviewed: Yes Procedures - Sedation Patient Received Moderate/Deep Sedation with Procedure: No Diagnostics - Laboratory Result Diagrams: 02/16/19 18:36 02/16/19 18:36 Lab Statement: Any lab studies that have been ordered have been reviewed, and results considered in the medical decision making process. Re-Evaluation - Re-Evaluation First Eval Re-Evaluation Time: 16:36 Change: Unchanged Comment: At 16:36, patient is medically cleared for a mental health evaluation. Course/Dx - Course Course Of Treatment: 53 y/o F w hx schizophrenia pw auditory hallucinations. - VSS NAD. Hx cocaine use. Patient calm, denies SI. Reports comand hallucinations. - MH team to see. Mild tachycardia likely in setting of recent cocaine use. - Differential Dx/Clinical Impression Provider Diagnosis: Schizophrenia Discharge ED - Sign-Out/Discharge Documenting (check all that apply): Sign-Out Patient Signing out patient TO: Fritz Falcon - Patient is a sign-out at 19:00 on 02/[address] Tanya Scott MD to Dr. Fritz Falcon MD at shift change, pending mental health evaluation and disposition. - Discharge Plan Condition: Stable Referrals: Buck Patiño MD [Primary Care Provider] - - Billing Disposition and Condition Condition: STABLE - Attestation Statements Document Initiated by Scribe: Yes Documenting Scribe: Yolis Villegas Provider For Whom Moniqueibshaggy is Documenting (Include Credential): Tanya Scott MD Scribe Attestation: I, Yolis Villegas, scribed for Tanya Scott MD on 02/16/19 at 1903. Scribe Documentation Reviewed: Yes Provider Attestation: The documentation as recorded by the jamieeYolis accurately reflects the service I personally performed and the decisions made by me, Tanya Scott MD Status of Scribe Document: Viewed
[2019-02-16 18:45] LABS: ABS Eosinophils 0.2 10^3/ul (0-0.6); ABS Lymphocytes 1.9 10^3/ul (1.0-4.8); ABS Monocytes 0.4 10^3/ul (0-0.8); ABS Neutrophils 3.4 10^3/ul (1.5-7.7); Eosinophil % 3.7 %; Hematocrit 37 % (35-47); Hemoglobin 12.5 g/dL (12.0-16.0); Lymphocyte % 31.6 %; Mean Corpuscular HGB Conc 34 g/dL (31-36); Mean Corpuscular Hemoglobin 32 pg (27-31); Mean Corpuscular Volume 94 fL (80-97); Mean Platelet Volume 6.7 fL (7.4-10.4); Nucleated Red Blood Cells % 0.1; Platelet Count 358 10^3/uL (150-450); Red Blood Count 3.91 10^6 /uL (3.70-4.87); Red Cell Distribution Width 15 % (10-15); White Blood Count 5.9 10^3/uL (3.5-10.8)
[2019-02-16 19:02] LABS: ALT 15 U/L (7-52); AST 15 U/L (13-39); Albumin 3.9 g/dL (3.2-5.2); Albumin/Globulin Ratio 1.4 (1-3); Alkaline Phosphatase 59 U/L (34-104); Anion Gap 4 mmol/L (2-11); BUN/Creatinine Ratio 16.5 (8-20); Blood Urea Nitrogen 14 mg/dL (6-24); CO2 Carbon Dioxide 31 mmol/L (22-32); Chloride 108 mmol/L (101-111); EGFR African American 84.7 (>60); Globulin 2.7 g/dL (2-4); Glucose 118 mg/dL (70-100); Potassium 4.1 mmol/L (3.5-5.0); Sodium 143 mmol/L (135-145); Total Protein 6.6 g/dL (6.4-8.9)
[2019-02-16 19:12] LABS: Acetaminophen < 15 mcg/mL; Alcohol < 10 mg/dL (<10); Salicylate < 2.50 mg/dL (<30)
--- NOTE | 2019-02-16 19:15 | ED ---
Progress - Progress Note Progress Note: This pt is a sign out to Dr. Falcon from Dr. Scott at shift change 1900 2019 pending MHE and disposition. Re-Evaluation - Re-Evaluation First Eval Re-Evaluation Time: 16:36 Change: Unchanged Comment: At 16:36, patient is medically cleared for a mental health evaluation. Course/Dx - Course Course Of Treatment: This pt is a sign out to Dr. Falcon from Dr. Scott at shift change 1900 02/16/2019 pending MHE and disposition. She was admitted to [facility] for further psychiatric care by Dr. Francis, psychiatrist, voluntarily. - Diagnoses Provider Diagnoses: Unspecified psychosis - Provider Notifications Discussed Care Of Patient With: Hank Francis Time Discussed With Above Provider: 02:36 Instructed by Provider To: Admit As Inpatient Admit/Transition Orders Completed By ED Provider: Yes Discharge ED - Sign-Out/Discharge Documenting (check all that apply): Patient Departure - admitted voluntarily - Discharge Plan Condition: Stable Disposition: HOME Patient Education Materials: Polysubstance Abuse (ED) Referrals: Buck Patiño MD [Primary Care Provider] - - Billing Disposition and Condition Condition: STABLE Disposition: Home - Attestation Statements Document Initiated by Scribe: Yes Documenting Scribe: Toby Vasques Provider For Whom Coy is Documenting (Include Credential): Fritz Falcon MD Scribe Attestation: Toby Albert, scribed for Fritz Falcon MD on 02/17/19 at 1921. Scribe Documentation Reviewed: Yes Provider Attestation: The documentation as recorded by the Toby doan accurately reflects the service I personally performed and the decisions made by me, Fritz Falcon MD Status of Scribe Document: Viewed
[2019-02-16 19:27] LABS: TSH (Thyroid Stimulating Horm) 0.36 mcIU/mL (0.34-5.60)
[2019-02-16] MEDS ORDERED: QUEtiapine TAB* 100 MG PO ONE (23:30)
[2019-02-17] MEDS ORDERED: Acetaminophen TAB* 325 MG PO ONE (02:51)
--- NOTE | 2019-02-17 11:00 | ED ---
Progress - Progress Note Progress Note: This pt is a sign out to Dr. Falcon from Dr. Scott at shift change 1900 2019 pending MHE and disposition. Re-Evaluation - Re-Evaluation First Eval Re-Evaluation Time: 16:36 Change: Unchanged Comment: At 16:36, patient is medically cleared for a mental health evaluation. Second Eval Re-Evaluation Time: 10:58 Change: Improved - per Dr. Edward, patient be discharged home with a diagnosis of substance induced mood disorder Course/Dx - Course Course Of Treatment: This pt is a sign out to Dr. Falcon from Dr. Scott at shift change 1900 02/16/2019 pending MHE and disposition. She was admitted to [facility] [place] for further psychiatric care by Dr. Francis, psychiatrist, voluntarily. - Diagnoses Provider Diagnoses: Unspecified psychosis - Provider Notifications Time Discussed With Above Provider: 02:36 Instructed by Provider To: Admit As Inpatient Admit/Transition Orders Completed By ED Provider: Yes Discharge ED - Sign-Out/Discharge Documenting (check all that apply): Patient Departure - Discharge Plan Condition: Stable Disposition: HOME Referrals: Buck Patiño MD [Primary Care Provider] - - Billing Disposition and Condition Condition: STABLE Disposition: Home
[2019-02-17 11:12] VITALS: BP 159/114
[2019-02-17 11:46] LABS: Urine Appearance Clear; Urine Bilirubin Negative (Negative); Urine Blood Negative (Negative); Urine Color Straw; Urine Glucose Negative (Negative); Urine Ketones Negative (Negative); Urine Nitrite Negative (Negative); Urine Protein Negative (Negative); Urine Specific Gravity 1.006 (1.010-1.030); Urine Urobilinogen Negative (Negative)
[2019-02-17 12:12] LABS: Urine Benzodiazepine Screen None Detected (None Detect); Urine Opiates Screen None Detected (None Detect)
== END 2019-02-17 11:10 | disposition home or self-care (01) ==
LOC: ED 16:24
DX: F20.9 Schizophrenia, unspecified (principal); F29 Unspecified psychosis not due to a substance or known physiological condition; I10 Essential (primary) hypertension; J44.9 Chronic obstructive pulmonary disease, unspecified; Z79.01 Long term (current) use of anticoagulants; Z88.0 Allergy status to penicillin; F17.210 Nicotine dependence, cigarettes, uncomplicated
CPT/HCPCS: 36415; 80053; 80307; 80320; 80329; 81003; 84443; 85025; 99285; A9270-GY; G0480

== ENCOUNTER 2019-04-11 14:22 | Emergency (ER) | payer OTHER ==
--- OUTSIDE RECORDS SUMMARY | 2019-04-11 14:28 | XMS REPORT | Continuity of Care Document ---
:1965 External Reference #:[id number] Author Name Lizzette Farnsworth DO (transmitted by agent of provider Fatuma Turk) Address [address] [place] [address] Care Team Providers Name Role Phone Jesus Coulter MD - Drilling Foreman Care Team Information Program Checker [phone] Buck Patiño MD - Hospitalist Care Team Information Program Checker [phone] Problems Active Problems Provider Date Embolism and [...] M.D. Onset: 08/20/2016 Posttraumatic stress disorder Philipp Bowers M.D. Onset: 08/20/2016 Social History Type Date Description Comments Sex Unknown ETOH Use Currently consumes consumes 3-4 times alcohol in a week. In one setting, drinks 6 drinks. Recreational Drug Use used to use crack, pot Denies current use 10 yr of Marijuana or Cocaine Tobacco Use Start: Unknown Patient is a current 2 ppd,started age 12 smoker, smokes every day Smoking Status Reviewed: 03/30/19 Patient is a current 2 ppd,started age 12 smoker, smokes every day Exercise Type/Frequency Does not exercise Allergies, Adverse Reactions, Alerts Active Allergies Reaction Severity Comments Date Penicillins 09/08/2013 Medications Active Medications SIG Qnty Indications Ordering Date Provider Dulcolax insert to rectum 4units K59.00 Lizzette Farnsworth, 03/30/2019 10mg daily until bowel DO Suppository movement is achieved Lactulose take 10 g three 237ml K59.00 Lizzette Farnsworth, 03/30/2019 10GM/15ML times daily as DO Solution needed for constipation Tramadol HCL 1 tablet by mouth 60tabs Lizzette Farnsworth, 01/02/2019 50mg every 12 hours as DO Tablets needed pain Albuterol Sulfate 2 puffs qd as needed 8.500gm Buck Patiño MD 12/09/2018 HFA 108(90Base) mcg/Act Aerosol [facility] Nicotine apply one patch 21units F17.210 Natty Perez, 12/01/2018 Transdermal System daily. M.D. Step 1 21mg/24HR Patches 24HR Dulera 2 puff twice daily 26.4gm J44.9 Lizzette Farnsworth, 12/01/2018 200-5mcg/Act DO Aerosol Quetiapine Fumarate take one tablet at 30tabs F31.9 Lizzette Farnsworth, 2018 bedtime DO 100mg Tablets History Medications No Active Unknown 12/01/2018 - Medications 12/01/2018 Olanzapine take one tablet 30tabs F31.9 Lizzette Farnsworth, 12/01/2018 - 5mg daily DO 03/30/2019 Tablets Xarelto take one tablet I82.502 Loree Pierce 12/01/2018 - 20mg Tablets daily 12/01/2018 Xarelto take one tablet 30tabs I82.502 Natty Perez 12/01/2018 - 20mg Tablets daily M.D. 12/01/2018 Albuterol Sulfate 2 puffs qd as Other Ordering 11/24/2018 - HFA needed Provider 12/01/2018 108(90Base) mcg/Act Aerosol Duloxetine HCL 1 by mouth 90caps Other Ordering 11/24/2018 - 60mg every day Provider 12/01/[address] Part Gabapentin 1 by mouth 90caps Other Ordering [...] Indications Ordering Provider Date Depomedrol 40MG Kiley Scott M.D. 01/12/2018 Injection Depomedrol 40MG Kiley Scott M.D. 01/12/2018 Injection Triamcinolone (Kenalog) Lillian Lechuga MD 09/17/2015 Injection Depomedrol 80MG Felisa Pena M.D. 10/29/2014 Injection B-12 Injection Nurse Visit A 10/04/2013 Injection B-12 Injection Nurse Visit C 10/03/2013 Injection B-12 Injection Nurse Visit C 10/02/2013 Injection B-12 Injection Nurse Visit C 10/02/2013 Injection B-12 Injection Nurse Visit C 09/29/2013 Injection Immunizations CPT Code Status Date Vaccine Lot # [id number] Given 11/16/2017 Influenza Virus Vaccine, Quadrivalent, Split, Preservative Free [id number] Given 11/20/2014 Influenza Virus Vaccine, Quadrivalent, Split, [id number] Preservative Free Vital Signs Date Vital Result Comment 03/30/2019 10:31am Height 66 inches 5'6" Weight 155.00 lb Heart Rate 102 /min BP Systolic Sitting 121 mmHg BP Diastolic Sitting 82 mmHg Body Temperature 97.3 F O2 % BldC Oximetry 97 % BMI (Body Mass Index) 25.0 kg/m2 12/01/2018 2:06pm Height 66 inches 5'6" Weight 129.12 lb Heart Rate 76 /min BP Systolic 152 mmHg BP Diastolic 91 mmHg Body Temperature 98.8 F O2 % BldC Oximetry 94 % BMI (Body Mass Index) 20.8 kg/m2 Results Test Acquired Date Facility Test Result H/L Range Note CBC Auto 02/16/2019 [facility] White Blood 5.9 10^3/uL Normal 3.5-10.[address] [place] [address] [phone] Red Blood Count 3.91 10^6/uL Normal 3.70-4.87 Hemoglobin 12.5 g/dL Normal 12.0-16.0 Hematocrit 37 % Normal 35-47 Mean Corpuscular Volume 94 fL Normal 80-97 Mean Corpuscular Hemoglobin 32 pg High 27-31 Mean Corpuscular HGB Conc 34 g/dL Normal 31-36 Red Cell Distribution Width 15 % Normal 10-15 Platelet Count 358 10^3/uL Normal 150-450 Mean Platelet Volume 6.7 fL Low 7.4-10.4 Abs Neutrophils 3.4 10^3/uL Normal 1.5-7.7 Abs Lymphocytes 1.9 10^3/uL Normal 1.0-4.8 Abs Monocytes 0.4 10^3/uL Normal 0-0.8 Abs Eosinophils 0.2 10^3/uL Normal 0-0.6 Abs Basophils 0.0 10^3/uL Normal 0-0.2 Abs Nucleated RBC 0.0 10^3/uL Granulocyte % 57.9 % Lymphocyte % 31.6 % Monocyte % 6.0 % Eosinophil % 3.7 % Basophil % 0.8 % Nucleated Red Blood Cells % 0.1 Comp Metabolic 02/16/2019 [facility] Sodium 143 mmol/L Normal 135-[address] [place] [address] [phone] Potassium 4.1 mmol/L Normal 3.5-5.0 Chloride 108 mmol/L Normal 101-111 Co2 Carbon Dioxide 31 mmol/L Normal 22-32 Anion Gap 4 mmol/L Normal 2-11 Glucose 118 mg/dL High 70-100 Blood Urea Nitrogen 14 mg/dL Normal 6-24 Creatinine 0.85 mg/dL Normal 0.51-0.95 BUN/Creatinine Ratio 16.5 Normal 8-20 Calcium 10.0 mg/dL Normal 8.6-10.3 Total Protein 6.6 g/dL Normal 6.4-8.9 Albumin 3.9 g/dL Normal 3.2-5.2 Globulin 2.7 g/dL Normal 2-4 Albumin/Globulin Ratio 1.4 Normal 1-3 Total Bilirubin 0.20 mg/dL Normal 0.2-1.0 Alkaline Phosphatase 59 U/L Normal 34-104 Alt 15 U/L Normal 7-52 Ast 15 U/L Normal 13-39 Egfr Non- 70.0 >60 Egfr 84.7 >60 1 Laboratory test 02/16/2019 [facility] Acetaminophen < 15 g/mL 2 finding [address] [place] [address] [phone] Alcohol < 10 mg/dL Normal <10 Salicylate < 2.50 mg/dL <30 TSH (Thyroid Stim Horm) 0.36 mcIU/mL Normal 0.34-5.60 Urinalysis Profile 02/16/2019 [facility] Urine Color Straw [address] [place] [address] [phone] Urine Appearance Clear Urine Specific [place] 1.006 Low 1.010-1.030 Urine pH 7.0 Normal 5-9 Urine Urobilinogen Negative Negative Urine Ketones Negative Negative Urine Protein Negative Negative Urine Leukocytes Negative Negative Urine Blood Negative Negative Urine Nitrite Negative Negative Urine Bilirubin Negative Negative Urine Glucose Negative Negative Urine Drug 02/16/2019 [facility] Urine None Detected None Detect SCR ED & [address] [facility] [place] [address] Screen [phone] Urine Barbiturates Screen None Detected None Detect Urine Benzodiazepine Screen None Detected None Detect Urine Cannabinoids Screen None Detected None Detect Urine Cocaine Screen None Detected None Detect Urine Opiates Screen None Detected None Detect Urine Phencyclidine Screen None Detected None Detect 3 CBC Auto 02/13/2019 [facility] White Blood 6.0 10^3/uL Normal 3.5-10.[address] [place] [address] [phone] Red Blood Count 4.74 10^6/uL Normal 3.70-4.87 Hemoglobin 15.1 g/dL Normal 12.0-16.0 Hematocrit 44 % Normal 35-47 Mean Corpuscular Volume 93 fL Normal 80-97 Mean Corpuscular Hemoglobin 32 pg High 27-31 Mean Corpuscular HGB Conc 34 g/dL Normal 31-36 Red Cell Distribution Width 15 % Normal 10-15 Platelet Count 419 10^3/uL Normal 150-450 Mean Platelet Volume 6.9 fL Low 7.4-10.4 Abs Neutrophils 3.9 10^3/uL Normal 1.5-7.7 Abs Lymphocytes 1.5 10^3/uL Normal 1.0-4.8 Abs Monocytes 0.3 10^3/uL Normal 0-0.8 Abs Eosinophils 0.1 10^3/uL Normal 0-0.6 Abs Basophils 0.1 10^3/uL Normal 0-0.2 Abs Nucleated RBC 0.0 10^3/uL Granulocyte % 65.5 % Lymphocyte % 25.6 % Monocyte % 5.7 % Eosinophil % 2.2 % Basophil % 1.0 % Nucleated Red Blood Cells % 0.1 Comp Metabolic 02/13/2019 [facility] Sodium 139 mmol/L Normal 135-145 Panel [address] [place] [address] [phone] Potassium 4.1 mmol/L Normal 3.5-5.0 Chloride 103 mmol/L Normal 101-111 Co2 Carbon Dioxide 31 mmol/L Normal 22-32 Anion Gap 5 mmol/L Normal 2-11 Glucose 102 mg/dL High 70-100 Blood Urea Nitrogen 9 mg/dL Normal 6-24 Creatinine 0.68 mg/dL Normal 0.51-0.95 BUN/Creatinine Ratio 13.2 Normal 8-20 Calcium 10.4 mg/dL High 8.6-10.3 Total Protein 7.5 g/dL Normal 6.4-8.9 Albumin 4.4 g/dL Normal 3.2-5.2 Globulin 3.1 g/dL Normal 2-4 Albumin/Globulin Ratio 1.4 Normal 1-3 Total Bilirubin 0.40 mg/dL Normal 0.2-1.0 Alkaline Phosphatase 69 U/L Normal 34-104 Alt 16 U/L Normal 7-52 Ast 19 U/L Normal 13-39 Egfr Non- 90.5 >60 Egfr 109.5 >60 4 Laboratory test 02/13/2019 [facility] Acetaminophen < 15 g/mL 5 finding [address] [place] [address] [phone] Alcohol < 10 mg/dL Normal <10 Salicylate < 2.50 mg/dL <30 Rapid Influenza 02/03/2019 [facility] Influenza A NEGATIVE Negative A & B Molecular [address] [place] [address] [phone] Influenza B Molecular NEGATIVE Negative 6 1 Because ethnic data is not always readily available, this report includes an eGFR for both -Americans and non- Americans. The National Kidney Disease Education Program (NKDEP) does not endorse the use of the MDRD equation for patients that are not between the ages of 18 and 70, are , have extremes of body size, muscle mass, or nutritional status, or are non- or non-. According to the National Kidney Foundation, irrespective of diagnosis, the stage of the disease is based on the level of kidney function: Stage Description GFR(mL/min/1.73 m(2)) 1 Kidney damage with normal or decreased GFR 90 2 Kidney damage with mild decrease in GFR 60-89 3 Moderate decrease in GFR 30-59 4 Severe decrease in GFR 15-29 5 Kidney failure <15 (or dialysis) 2 Therapeutic concentration: <50 ug/mL Toxic concentration: >120 ug/mL 3 The urine specimen was tested at the listed cutoffs: Drug class test level (ng/mL) Amphetamines 500 Barbiturates 200 Benzodiazepine metabolites 200 Cocaine metabolites 150 Cannabinoids 50 Opiates 300 Pcp 25 Specimen was received without chain of custody. Results should be used for medical purposes only. 4 Because ethnic data is not always readily available, this report includes an eGFR for both -Americans and non- Americans. The National Kidney Disease Education Program (NKDEP) does not endorse the use of the MDRD equation for patients that are not between the ages of 18 and 70, are , have extremes of body size, muscle mass, or nutritional status, or are non- or non-. According to the National Kidney Foundation, irrespective of diagnosis, the stage of the disease is based on the level of kidney function: Stage Description GFR(mL/min/1.73 m(2)) 1 Kidney damage with normal or decreased GFR 90 2 Kidney damage with mild decrease in GFR 60-89 3 Moderate decrease in GFR 30-59 4 Severe decrease in GFR 15-29 5 Kidney failure <15 (or dialysis) 5 Therapeutic concentration: <50 ug/mL Toxic concentration: >120 ug/mL 6 Registered Pharmacist: [id number] Procedures Date Code Description Status 08/20/2016 025424066 Diabetic Foot Exam Completed 08/18/2016 [id number] Diabetic Foot Exam Completed 03/09/2014 [id number] Mammogram Completed Medical Devices Description No Information Available Encounters Type Date Location Provider Dx Diagnosis Office Visit 03/30/2019 [facility] Lizzette Farnsworth, K59.00 Constipation, 10:40a Medicine - Suite DO unspecified R Z12.11 Encounter for screening for malignant neoplasm of colon Office Visit 12/01/2018 2:00p [facility] Loree F17.210 Nicotine Medicine - MD Stan dependence, Suite [address] cigarettes, uncomplicated J44.9 Chronic obstructive pulmonary disease, unspecified F31.9 Bipolar disorder, unspecified Z86.718 Personal history of other venous thrombosis and embolism Assessments Date Code Description Provider 03/30/2019 K59.00 Constipation, unspecified Lizzette Farnsworth DO 03/30/2019 Z12.11 Encounter for screening for malignant neoplasm Lizzette Farnsworth DO of colon 12/01/2018 F17.210 Nicotine dependence, cigarettes, uncomplicated Loree Pierce MD 12/01/2018 J44.9 Chronic obstructive pulmonary disease, Loree Pierce MD unspecified 12/01/2018 F31.9 Bipolar disorder, unspecified Loree Pierce MD 12/01/2018 Z86.718 Personal history of other venous thrombosis Loree Pierce MD and embolism Plan of Treatment 03/30/2019 - Lizzette Farnsworth DOK59.00 Constipation, unspecifiedNew Medication: Dulcolax 10 mg - insert to rectum daily until bowel movement is achievedLactulose 10 GM/15ML - take 10 g three times daily as needed for constipationNew Xrays:Abdomen/KUB 1 VW, Scheduled: 03/30/19Comments:CALL ME AROUND 3PM FOR THE RESULTS OF YOUR XRAY DO NOT TAKE THIS MEDICATION UNTIL WE DISCUSS THE RESULTS OF YOUR XRAY IF YOU HAVE A BLOCKAGE ON XRAY, I WILL SEND YOU TO THE ERZ12.11 Encounter for screening for malignant neoplasm of colonReferral:Kendrick Navarro MD, Gastroenterology Functional Status Description No Information Available Mental Status Description No Information Available Referrals Refer to Reason for Referral Status Appt Date Kendrick Navarro MD Created [address] [place] [phone] [phone] [facility] Sent [address] [place] [address] [phone]
[2019-04-11 14:50] VITALS: BP 128/90
[2019-04-11] MEDS ORDERED: HYDROcodone/ACETAMIN 5-325 MG* 1 TAB PO ONE (15:03)
--- NOTE | 2019-04-11 15:11 | UC ---
Lower Extremity/Ankle HPI - HPI Summary HPI Summary: 54-year-old woman comes in with chief complaint of left foot pain. Patient reports 2 days ago she slipped and fell and injured her left foot. She has pain throughout the whole forefoot and into the ankle. Pain radiates all the way up the anterior flynn to about mid shaft. The foot is swollen. Patient reports she has decreased sensation distally. Pain is worse with any kind of movement or touching it. Patient took Advil and it did not help much with the pain. Patient is on a blood thinner and is not supposed take any nonsteroidal anti-inflammatories. She's had prior surgery on the left foot. Patient reports she's been getting sores on the inside of her nose that are somewhat painful and when she picks them pus comes out. Patient denies any history of MRSA. - History of Current Complaint Chief Complaint: UCLowerExtremity Stated Complaint: ANKLE PAIN,SORES IN NOSE Time Seen by Provider: 04/11/19 14:41 Hx Last Menstrual Period: hystert Pain Intensity: 10 - Allergies/Home Medications Allergies/Adverse Reactions: Allergies Allergy/AdvReac Type Severity Reaction Status Date / Time Penicillins Allergy Swelling Verified 04/11/19 14:40 Home Medications: Home Medications OLANzapine TAB* [Zyprexa 5 MG TAB*] 5 mg PO DAILY 12/05/18 [History Confirmed ] Albuterol HFA INHALER* [Ventolin HFA Inhaler*] 2 puff INH Q4HR PRN 12/14/18 [ History Confirmed 04/11/19] Mometasone/Formoter 200/5 MDI* [Dulera 200/5 MDI*] 2 puff INH BID 12/14/18 [ History Confirmed 04/11/19] Nicotine PATCH 21 MG/24 HR* 21 mg TRANSDERM DAILY 12/14/18 [History Confirmed ] QUEtiapine TAB* [Seroquel 100 MG *] 800 mg PO BEDTIME 12/14/18 [History Confirmed 04/11/19] traMADol TAB* [Ultram*] 50 mg PO Q12H PRN 02/13/19 [History Confirmed 04/11/19] DOXYcycline CAP(*) [DOXYcycline 100MG CAP(*)] 100 mg PO BID #20 cap 04/11/19 [Rx ] HYDROcodone/ACETAMIN 5-325 MG* [Fisher 5-325 TAB*] 1 tab PO Q6H PRN #20 tab MDD 4 04/11/19 [Rx] Mupirocin 1 applic TOPICAL BID #22 gm 04/11/19 [Rx] Rivaroxaban TAB(*) [Xarelto 20 mg] 25 mg PO BID 04/11/19 [History Confirmed 04/27] PMH/Surg Hx/FS Hx/Imm Hx Previously Healthy: Yes Other History Of: Anticoagulant Therapy - Surgical History Surgical History: Yes Surgery Procedure, Year, and Place: x3 - [facility]. UTERINE ABLATION - [facility]. hysterectomy - [facility]. screws placed in bilateral feet. right breast lumpectomy 2006 - [facility]. Bilateral foot surgeries. left wrist - Family History Known Family History: Positive: Other - cancer - Social History Alcohol Use: Weekly Alcohol Amount: I don't know but more than a 6-pack a day Substance Use Type: None Substance Use Comment - Amount & Last Used: today Smoking Status (MU): Heavy Every Day Tobacco Smoker Type: Cigarettes Amount Used/How Often: 1 1/2 PPD for 35 years Length of Time of Smoking/Using Tobacco: 48 YRS Have You Smoked in the Last Year: Yes When Did the Patient Quit Smoking/Using Tobacco: 1 PPD Household Exposure Type: Cigarettes - Immunization History Most Recent Influenza Vaccination: states she is due for one Most Recent Tetanus Shot: 2013 Most Recent Pneumonia Vaccination: never Review of Systems All Other Systems Reviewed And Are Negative: Yes Constitutional: Positive: Negative Skin: Positive: Other - Swelling left foot Eyes: Positive: Negative ENT: Positive: Other - see hpi Respiratory: Positive: Negative Cardiovascular: Positive: Negative Gastrointestinal: Positive: Negative Motor: Positive: Negative Neurovascular: Positive: Other - see hpi Musculoskeletal: Positive: Other: - see hpi Neurological/Mental Status: Positive: Negative Psychological: Positive: Negative Is Patient Immunocompromised?: No Physical Exam Triage Information Reviewed: Yes Appearance: Well-Appearing, Well-Nourished, Pain Distress - mild/moderate with rom and exam of left foot Vital Signs: Initial Vital Signs Pulse 87 04/11/19 14:43 Resp 18 04/11/19 14:43 BP 128/90 04/11/19 14:43 Pulse Ox 98 04/11/19 14:43 Vital Signs Reviewed: Yes Eye Exam: Normal Eyes: Positive: Conjunctiva Clear ENT: Positive: Other - There is some sores in the nasal mucosae do not see any pus drainage. Neck: Positive: Supple Respiratory: Positive: No respiratory distress Musculoskeletal: Positive: Strength Intact, Other: - Left foot is diffusely swollen and the forefoot and into the ankle. The whole area is tender to palpation capillary refill is normal. Patient reports decreased sensation distally. Patient is tender to palpation on the anterior flynn to the mid shaft. There is minimal tenderness bilateral malleoli. Achilles tendon is nontender and intact. Neurological: Positive: Alert Psychological: Positive: Age Appropriate Behavior Skin: Positive: Other - Left foot has some erythema there is no skin breaks. Lower Extremity Course/Dx - Course Course Of Treatment: Elementary Assistant Teacher: Haridner Mahajan Daniel, ([id number]) Researcher: ELBERT ( ELBERT) Report Date: 04/11/2019 15:08:00 Report Status: Final ====== Start of Report Content Patient Name: CATHIE ADAME Medical Record#: [id number] Ordering Physician: Donny Centeno MD Acct.#: [id number] : Age: 54 Sex: F Location: [facility] Exam Date: 04/11/19 1441 ADM Status: REG ER Order Information: FOOT LEFT 3+ VWS Accession Number: [id number] CPT: 01251 HISTORY: pain s/p trauma . COMPARISONS: October 13, 2002 VIEWS: 6, Frontal, lateral, and oblique views of the left foot and left ankle FINDINGS: BONE DENSITY: Normal. BONES: There is no displaced fracture. There is postsurgical change to the distal first metatarsal. JOINTS: There is no arthropathy. ALIGNMENT: There is no dislocation. SOFT TISSUES: Unremarkable. OTHER FINDINGS: None. IMPRESSION: POST SURGICAL CHANGE. NO ACUTE OSSEOUS INJURY. IF SYMPTOMS PERSIST, RECOMMEND REPEAT IMAGING. <Electronically signed by Harinder Mahajan MD in OV> 04/11/19 1504 Dictated By: Harinder Mahajan MD Dictated Date /Time: 04/11/19 150 Transcribed Date/Time: 04/11/19 150 Copy to: CC:Buck Patiño MD; Donny Centeno MD Imaging - [facility] Imaging - [facility] Imaging - [facility] [address] [place] [address] ph [phone]) ph [phone]) ph ([phone]) ==== End of Report Content Elementary Assistant Teacher: Harinder Mahajan Daniel, ([id number]) Researcher: ELBERT, ( NUANCE) Report Date: 04/11/2019 15:08:00 Report Status: Final ====== Start of Report Content Patient Name: CATHIE ADAME Medical Record#: [id number] Ordering Physician: Donny Centeno MD Acct.#: [id number] : Age: 54 Sex: F Location: [facility] Exam Date: 04/11/19 1441 ADM Status: REG ER Order Information: ANKLE LEFT 3+VWS Accession Number: [id number] CPT: 74372 HISTORY: pain s/p trauma . COMPARISONS: October 13, 2002 VIEWS: 6, Frontal, lateral, and oblique views of the left foot and left ankle FINDINGS: BONE DENSITY: Normal. BONES: There is no displaced fracture. There is postsurgical change to the distal first metatarsal. JOINTS: There is no arthropathy. ALIGNMENT: There is no dislocation. SOFT TISSUES: Unremarkable. OTHER FINDINGS: None. IMPRESSION: POST SURGICAL CHANGE. NO ACUTE OSSEOUS INJURY. IF SYMPTOMS PERSIST, RECOMMEND REPEAT IMAGING. <Electronically signed by Harinder Mahajan MD in OV> 04/11/19 1504 Dictated By: Harinder Mahajan MD Dictated Date /Time: 04/11/19 1503 Transcribed Date/Time: 04/11/19 1503 Copy to: CC:Buck Patiño MD; Donny Centeno MD Imaging - [facility] Imaging - [facility] Imaging - [facility] [address] [place] [address] ph [phone]) ph [phone]) ph [phone]) ==== End of Report Content I discussed the x-rays with the patient. No fracture seen. Patient has quite a bit of pain and swelling. Most probably due to the sprain and the patient being on a blood thinner she has bleeding in the foot. I recommended keeping it elevated as much as possible. Patient cannot take nonsteroidal anti- inflammatories and requests something stronger than acetaminophen. Wrote a prescription for Fisher. Here in clinic patient was placed in an Kit wrap and cam boot by nursing patient Samanthavasc intact after placement. Patient also given crutches to keep weight off of the foot and will follow-up with orthopedics. For the sores in her nose treating with mupirocin and doxycycline having the patient follow-up with ENT if they do not improve. - Differential Dx/Diagnosis Provider Diagnosis: Impetigo, Sprain of left foot, Sprain of left ankle Discharge ED - Sign-Out/Discharge Documenting (check all that apply): Patient Departure All imaging exams completed and their final reports reviewed: Yes - Discharge Plan Condition: Stable Disposition: HOME Prescriptions: DOXYcycline CAP(*) [DOXYcycline 100MG CAP(*)] 100 mg PO BID #20 cap HYDROcodone/ACETAMIN 5-325 MG* [Fisher 5-325 TAB*] 1 tab PO Q6H PRN #20 tab MDD 4 PRN Reason: Pain - Moderate Mupirocin 1 applic TOPICAL BID #22 gm Patient Education Materials: Foot Sprain (ED), Ankle Sprain (ED), Impetigo (ED) Referrals: Buck Patiño MD [Primary Care Provider] - Bryan Ferraro MD [Medical Doctor] - Brent Redmond MD [Medical Doctor] - Bishop Bailey MD [Medical Doctor] - Additional Instructions: FOLLOW UP WITH ORTHOPEDICS FOR YOUR FOOT. FOLLOW UP WITH ENT FOR THE SORES IN YOUR NOSE. GET REEVALUATED SOONER IF NOT IMPROVED OR WORSE OR ANY QUESTIONS OR CONCERNS. - Billing Disposition and Condition Condition: STABLE Disposition: Home
== END 2019-04-11 15:42 | disposition home or self-care (01) ==
LOC: UCEAST 14:22
DX: S93.402A Sprain of unspecified ligament of left ankle, initial encounter (principal); L01.00 Impetigo, unspecified; F17.210 Nicotine dependence, cigarettes, uncomplicated; Z98.890 Other specified postprocedural states; Z88.0 Allergy status to penicillin; W01.0XXA Fall on same level from slipping, tripping and stumbling without subsequent striking against object, initial encounter; Y92.9 Unspecified place or not applicable
CPT/HCPCS: 99213; G0463